=== PATIENT | female | born 1980 | race Caucasian/White ===

== ENCOUNTER 2018-04-28 11:30 | Inpatient (IN) ==
[2018-04-28] MEDS ORDERED: Vancomycin Inj 1 GM/200 ML PIGGYBACK IV.SIG ONE (13:47)
[2018-04-28] MEDS ORDERED: Piperacil/Tazo 4.5 GM Premix 4.5 GM/100 ML BAG IV.SIG STA (13:47)
[2018-04-28] MEDS ORDERED: Sodium Chlor 0.9% Inj 100 ML IV.SIG SCH (14:00)
[2018-04-28 14:15] LABS: Bilirubin,Urine Negative (Negative); Clarity,Urine Clear (Clear); Color,Urine Yellow (Yellw/Straw); Glucose,Urine (UA) Negative (Negative); Leukocyte Esterase,Urine Trace (Negative); Nitrite,Urine Negative (Negative); Specific Gravity,Urine Less/Equal 1.005 (1.002-1.035); Urobilinogen,Urine 0.2 mg/dL (Less than 2)
[2018-04-28 14:16] LABS: Baso % (Auto) 0.8 % (0.0-2.0); Eos # (Auto) 0.1 th/mm3 (0.0-0.4); Eos % (Auto) 1.1 % (0.0-4.0); Hematocrit 38.6 % (35.0-46.0); Hemoglobin 13.2 gm/dL (11.6-15.3); Lymph # (Auto) 1.5 th/mm3 (1.0-4.8); Lymph % (Auto) 25.1 % (9.0-44.0); Mean Corpuscular HGB Conc 34.2 % (32.0-36.0); Mean Corpuscular Hemoglobin 30.9 pg (27.0-34.0); Mean Corpuscular Volume 90.3 fL (80.0-100.0); Mean Platelet Volume 10.4 fL (7.0-11.0); Mono # (Auto) 0.5 th/mm3 (0.0-0.9); Mono % (Auto) 8.1 % (0.0-8.0); Neut # (Auto) 3.8 th/mm3 (1.8-7.7); Neut % (Auto) 64.9 % (16.0-70.0); Platelet Count 219 th/mm3 (150-450); Red Blood Count 4.28 mil/mm3 (4.00-5.30); Red Cell Distribution Width 13.9 % (11.6-17.2); White Blood Count 5.9 th/mm3 (4.0-11.0)
[2018-04-28 14:25] LABS: Chloride 101 meq/L (98-107); Sodium 137 meq/L (136-145)
[2018-04-28 14:28] LABS: Calcium 9.2 mg/dL (8.5-10.1)
[2018-04-28 14:29] LABS: Albumin 3.8 g/dL (3.4-5.0); Anion Gap 8 meq/L (5-15); Blood Urea Nitrogen 10 mg/dL (7-18); Carbon Dioxide 28.3 meq/L (21.0-32.0); Glucose,Random 68 mg/dL (74-106)
[2018-04-28 14:32] LABS: Alanine Aminotransferase 136 U/L (10-53); Aspartate Aminotransferase 84 U/L (15-37); Glomerular Filtration Rate 87 mL/min (>89)
[2018-04-28 14:34] LABS: Total Protein 8.7 g/dL (6.4-8.2)
[2018-04-28 14:35] LABS: Alkaline Phosphatase 94 U/L (45-117)
[2018-04-28 14:37] LABS: Potassium 4.1 meq/L (3.5-5.1)
[2018-04-28 14:49] LABS: Bacteria,Urine Rare /hpf; Mucus,Urine Rare /lpf (Occasional); Squamous Epithelial Cell,Urine 0-5 /hpf (0-5); WBC,Urine 0-5 /hpf (0-5)
[2018-04-28] MEDS ORDERED: Vancomycin Inj 1,000 MG in Sodium Chlor 0.9% Inj 250 ML IV.SIG ONE (15:00)
--- NOTE | 2018-04-28 15:12 | ED ---
HPI General Chief complaint: Skin/Abscess/Foreign Body Stated complaint: Lt hand swelling/poss spider bite x 4 days Time Seen by Provider: 04/28/18 13:47 Source: patient Mode of arrival: ambulatory Limitations: no limitations History of Present Illness HPI narrative: 37-year-old female is complaining of pain in her left hand. She says that she was gardening about 4 days ago and thinks he might of gotten bit by something. The area has become red drainage at times from the area. Not aware of fever. The area is quite painful and does admit to IV drug abuse in the past but says this area is not an area related to injection denies recent injections. she says the pain she is having is throbbing in nature and is quite severe Onset (ago): day(s) Location: upper extremity Radiation: non-radiation Severity: severe Quality: other Pain Consistency: constant Relieving factors: none Related Data Home Medications Medication Instructions Recorded Confirmed No Known Home Medications 04/28/18 04/28/18 Allergies Allergy/AdvReac Type Severity Reaction Status Date / Time No Known Allergies Allergy Verified 04/28/18 11:45 Review of Systems ROS: all other systems reviewed are negative [facility] Medical History Medical History Rheumatoid arthritis (Acute) Fibromyalgia (Acute) [place] teeth extracted (Acute) Surgical History Surgical History Hx of tonsillectomy (Acute) Social History Social History Substance History: Past History Second Hand Smoke Exposure: Yes Smoking Status: Current every day smoker Tobacco Type: Cigarettes How Often Do You Have a Drink Containing Alcohol: Never Recent Travel in [facility] within the Last 8 Weeks: No Recent Out of Country Travel within the Last 8 Weeks: No Immunization History Tetanus Immunization: >5 Years Hx Influenza Vaccine This Season: No Exam Narrative Exam Narrative: GENERAL: Thin female SKIN: Focused skin assessment warm/dry. HEAD: Atraumatic. Normocephalic. EYES: Pupils equal and round. No scleral icterus. No injection or drainage. ENT: No nasal bleeding or discharge. Mucous membranes pink and moist. NECK: Trachea midline. No JVD. CARDIOVASCULAR: Regular rate and rhythm. No murmur appreciated. RESPIRATORY: No accessory muscle use. Clear to auscultation. Breath sounds equal bilaterally. GASTROINTESTINAL: Abdomen soft, non-tender, nondistended. Hepatic and splenic margins not palpable. MUSCULOSKELETAL: Thenar eminence of the left hand is swollen and erythematous. Standing above the wrist forearm volarly. There is a small amount of drainage.. NEUROLOGICAL: Awake and alert. No obvious cranial nerve deficits. Motor grossly within normal limits. Normal speech. PSYCHIATRIC: Appropriate mood and affect; insight and judgment normal. Course Initial Documented Vital Signs Temperature 98.7 F 04/28/18 11:45 Pulse Rate 78 04/28/18 11:45 Respiratory Rate 16 04/28/18 11:45 Blood Pressure 102/55 L 04/28/18 11:45 Pulse Oximetry 100 04/28/18 11:45 Last Documented Vital Signs Temperature 98.7 F 04/28/18 11:45 Pulse Rate 75 04/28/18 15:21 Respiratory Rate 18 04/28/18 15:21 Blood Pressure 103/52 L 04/28/18 15:21 Pulse Oximetry 99 04/28/18 15:21 Medical Decision Making MDM Narrative Medical decision making narrative: Patient has significant cellulitis and possible abscess of the left hand. He did not involves the thenar eminence and surrounding areas there is lymphangitis. Medical Screen Exam Complete: Yes Emergency Medical Condition: Yes Lab Data Result diagrams: 04/28/18 12:49 04/28/18 12:49 POC Results POC Urine Results Negative Lab Results 04/28/18 04/28/18 04/28/18 Range/Units 12:49 12:49 14:03 CBC w Diff Auto diff final WBC 5.9 (4.0-11.0) th/mm3 RBC 4.28 (4.00-5.30) mil/mm3 Hgb 13.2 (11.6-15.3) gm/dL Hct 38.6 (35.0-46.0) % MCV 90.3 (80.0-100.0) fL MCH 30.9 (27.0-34.0) pg MCHC 34.2 (32.0-36.0) % RDW 13.9 (11.6-17.2) % Plt Count 219 (150-450) th/mm3 MPV 10.4 (7.0-11.0) fL Neut % (Auto) 64.9 (16.0-70.0) % Lymph % (Auto) 25.1 (9.0-44.0) % [place] % (Auto) 8.1 H (0.0-8.0) % Eos % (Auto) 1.1 (0.0-4.0) % Baso % (Auto) 0.8 (0.0-2.0) % Neut # (Auto) 3.8 (1.8-7.7) th/mm3 Lymph # (Auto) 1.5 (1.0-4.8) th/mm3 [place] # (Auto) 0.5 (0.0-0.9) th/mm3 Eos # (Auto) 0.1 (0.0-0.4) th/mm3 Baso # (Auto) 0.0 (0.0-0.2) th/mm3 WBC Differential . Differential Comment . Sodium 137 (136-145) meq/L Potassium 4.1 (3.5-5.1) meq/L Chloride 101 (98-107) meq/L Carbon Dioxide 28.3 (21.0-32.0) meq/L Anion Gap 8 (5-15) meq/L BUN 10 (7-18) mg/dL Creatinine 0.76 (0.50-1.00) mg/dL Estimated GFR 87 L (>89) mL/min Random Glucose 68 L (74-106) mg/dL Calcium 9.2 (8.5-10.1) mg/dL Total Bilirubin 0.7 (0.2-1.0) mg/dL AST 84 H (15-37) U/L ALT 136 H (10-53) U/L Alkaline Phosphatase 94 (45-117) U/L Total Protein 8.7 H (6.4-8.2) g/dL Albumin 3.8 (3.4-5.0) g/dL Urine Color Yellow (Yellw/Straw) Urine Clarity Clear (Clear) Urine pH 6.0 (5.0-8.5) Ur Specific [place] Less/equal 1.005 (1.002-1.035) Urine Protein Negative (Neg-Trace) mg/dL Urine Glucose (UA) Negative (Negative) mg/dL Urine Ketones Negative (Negative) mg/dL Urine Occult Blood Negative (Negative) Urine Nitrate Negative (Negative) Urine Bilirubin Negative (Negative) Urine Urobilinogen 0.2 (Less than 2) mg/dL Ur Leukocyte Esterase Trace H (Negative) Urine WBC 0-5 (0-5) /hpf Ur Squamous Epith Cells 0-5 (0-5) /hpf Urine Bacteria Rare H (None) /hpf Urine Mucus Rare H (Occasional) /lpf Micro UA Comment Culture not ind Ur Microscopic Review Microscopic reviewed Urine Culture Comments Culture not ind Imaging Data Radiologist's impression: Hand X-Ray 04/28/18 14:51 CONCLUSION: Negative examination Discharge Plan Discharge Disposition Patient Disposition: 30 Still Patient Physicians Team ED Provider: Mino Franco Primary Care Provider: Primary Care Lexi Mock Attending Provider: Guero Dwyer Discharge Interventions Interventions: Vital Signs Last Done: 04/28/18 15:21 Status ED Status: Admitted Observation Patient
--- NOTE | 2018-04-28 15:13 | XR ---
EXAM DATE: 04/28/2018 2:51 PM EDT AGE/SEX: 37 years / Female INDICATIONS: Pain and swelling in left hand distal to 1st digit. CLINICAL DATA: This is the patient's initial encounter. Patient reports that signs and symptoms have been present for 1 day and indicates a pain score of 5/10. MEDICAL/SURGICAL HISTORY: None. None. COMPARISON: No prior exams available for comparison. FINDINGS: Bony structures are intact and in normal alignment. Osseous density is normal. Soft tissues are unre markable. No radiopaque foreign bodies seen. CONCLUSION: Negative examination Electronically signed by: Royal Melton MD 04/28/2018 3:12 PM EDT
[2018-04-28] MEDS ORDERED: Sodium Chlor 0.9% Inj 1,000 ML IV.SIG SCH (15:14)
[2018-04-28] MEDS ORDERED: Vancomycin Consult Pharmacy OTHER PRN (15:42)
[2018-04-28] MEDS ORDERED: Bisacodyl 10 MG Supp RECTAL PRN (15:43)
[2018-04-28] MEDS ORDERED: Naloxone Inj 0.4 MG/ML Vial IV.PUSH PRN ×2 (15:44→17:24)
[2018-04-28] MEDS ORDERED: Acetaminophen 325 MG Tablet PO PRN (15:44)
[2018-04-28] MEDS ORDERED: Ketorolac Inj 30 MG/ML (IVP) Vial IV.PUSH PRN (15:44)
[2018-04-28] MEDS ORDERED: Ibuprofen 400 MG Tablet PO PRN (15:44)
[2018-04-28] MEDS: Ketorolac Inj 30 MG/ML (IVP) Vial IV.PUSH PRN (16:44)
--- NOTE | 2018-04-28 16:55 | P.HP ---
History of Present Illness Primary Care Physician: No Primary Care Physician Chief Complaint: Left hand swelling History of Present Illness: This is a 37-year-old female with a history of rheumatoid arthritis, fibromyalgia and cocaine abuse(snorting). She presents to the emergency department because of left hand pain and swelling which started about 4 days ago after she did gardening. She thought she might have been bitten by spider. She complains of a constant throbbing discomfort worse with movement. She also noted bloody purulent discharge. She denies IV drug use. Last oral intake 11:00 this morning. All other systems reviewed negative Review of Systems All other systems reviewed negative except as stated in HPI PMFSH - History History Provided By: Patient - Medical History Medical History: Medical History (Last Reviewed 04/28/18 @ 16:51 by Guero Dwyer MD) Rheumatoid arthritis (Acute) Fibromyalgia (Acute) [place] teeth extracted - Surgical History Surgical History: Surgical History (Last Reviewed 04/28/18 @ 16:51 by Guero Dwyer MD) Hx of tonsillectomy (Acute) - Family History Family History: Family History (Last Updated 04/28/18 @ 16:51 by Guero Dwyer MD) Other No pertinent family history - Tobacco History Second Hand Smoke Exposure: Yes Tobacco Use In Past 30 Days: Yes Smoking Status: Current every day smoker Tobacco Type: Cigarettes - Alcohol History How Often Do You Have a Drink Containing Alcohol: Never - Substance Use History Substance History: Past History - Travel History Recent Travel in the [place] Within the Last 8 Weeks: No Recent Travel Out of the Country Within the Last 8 Weeks: No - Immunization History Tetanus Immunization: >5 Years Hx Influenza Vaccine This Season: No Medications and Allergies Active Medications: Active Medications Acetaminophen (Tylenol) 650 mg PO Q4H PRN PRN Reason: Temp > 100.4 Acetaminophen (Tylenol) 650 mg PO Q6HR PRN PRN Reason: PAIN SCALE 1 TO 5 Al Hydroxide/Mg Hydroxide (Milk Of Magnesia Liq) 30 ml PO Q12H PRN PRN Reason: Mild Constipation Bisacodyl (Dulcolax Supp) 10 mg RECTAL DAILY PRN PRN Reason: SEVERE CONSITIPATION Sodium Chloride (Ns Inj) 1,000 mls @ 0 mls/hr IV.SIG BOLUS DELL Last Infusion: 04/28/18 16:28 Dose: Infused Piperacillin/Tazobactam/Dextrose (Zosyn 3.375 Gm Premix) 50 mls @ 100 mls/hr IV.SIG Q6H DELL Sodium Chloride (Ns Inj) 1,000 mls @ 60 mls/hr IV.CONT .[id number] DELL Vancomycin HCl 900 mg/ Sodium (Chloride) 250 mls @ 250 mls/hr IV.SIG Q12H DELL Ibuprofen (Motrin) 400 mg PO Q6HR PRN PRN Reason: PAIN SCALE 6 TO 10 Ketorolac Tromethamine (Toradol Inj) 30 mg IV.PUSH Q6H PRN PRN Reason: PAIN 6-10;IF UNABLE TO TAKE PO Stop: 05/03/18 15:43 Ketorolac Tromethamine (Toradol Inj) 15 mg IV.PUSH Q6H PRN PRN Reason: PAIN SCALE 3 TO 5 IF NOT PO Stop: 05/03/18 15:43 Lactulose (Lactulose Liq) 30 ml PO DAILY PRN PRN Reason: SEVERE CONSITIPATION Naloxone HCl (Narcan Inj) 0.4 mg IV.PUSH UNSCH PRN PRN Reason: SEE LABEL COMMENTS Ondansetron HCl (Zofran Inj) 4 mg IV.PUSH Q6H PRN PRN Reason: NAUSEA OR VOMITING Pharmacy Profile Note (Vancomycin Consult Pharmacy) 1 each OTHER UNSCH PRN PRN Reason: Pharmacy to dose Senna/Docusate Sodium (Thania-Colace) 1 tab PO BID DELL Sennosides (Senokot) 17.2 mg PO Q12H PRN PRN Reason: Moderate Constipation Allergies Allergy/AdvReac Type Severity Reaction Status Date / Time No Known Allergies Allergy Verified 04/28/18 11:45 Home Medications Medication Instructions Recorded Confirmed Type No Known Home Medications 04/28/18 04/28/18 History Exam Vital signs: Vital Signs 04/28/18 11:45 04/28/18 13:36 04/28/18 14:16 Temperature 98.7 F Pulse Rate 78 71 69 Respiratory Rate 16 18 Blood Pressure 102/55 L 96/56 L Pulse Oximetry 100 98 96 04/28/18 15:21 04/28/18 16:28 Temperature Pulse Rate 75 88 Respiratory Rate 18 18 Blood Pressure 103/52 L 104/54 L Pulse Oximetry 99 98 Intake & Output 10/02/18 10/03/18 10/03/18 18:59 06:59 18:59 Intake Total 1350 / 1350 Balance 1350 / 1350 Weight 56.2 kg Intake: IV 1350 / 1350 Zosyn 4.5 GM Premix 4.5 gm In 100 / 100 100 ml @ 200 mls/hr IV.SIG STAT STA Rx#:[id number] NS Inj 1,000 ML @ Wide Open IV. 1000 / 1000 SIG BOLUS DELL Rx#:[id number] Vancomycin Inj 1,000 MG In NS 250 / 250 Inj 250 ML @ 250 mls/hr IV.SIG ONCE ONE Rx#:[id number] Narrative: GENERAL: Well-developed, well-nourished in no distress SKIN: Warm and dry. HEAD: Atraumatic. Normocephalic. EYES: Pupils equal and round. No scleral icterus. No injection or drainage. ENT: No nasal bleeding or discharge. Mucous membranes pink and moist. NECK: Trachea midline. No JVD. CARDIOVASCULAR: Regular rate and rhythm. RESPIRATORY: No accessory muscle use. Clear to auscultation. Breath sounds equal bilaterally. GASTROINTESTINAL: Abdomen soft, non-tender, nondistended. MUSCULOSKELETAL: Extremities without clubbing, cyanosis, or edema. No obvious deformities. Left hand thenar eminence is swollen, erythematous and tender with dried secretions. NEUROLOGICAL: Awake and alert. No obvious cranial nerve deficits. Motor grossly within normal limits. Five out of 5 muscle strength in the arms and legs. Normal speech. PSYCHIATRIC: Appropriate mood and affect; insight and judgment normal. Results - Labs CBC & Chem 7: 04/28/18 12:49 04/28/18 12:49 Labs: Laboratory Results - last 24 hr 04/28/18 04/28/18 04/28/18 12:49 12:49 14:03 CBC w Diff Auto diff final WBC 5.9 RBC 4.28 Hgb 13.2 Hct 38.6 MCV 90.3 MCH 30.9 MCHC 34.2 RDW 13.9 Plt Count 219 MPV 10.4 Neut % (Auto) 64.9 Lymph % (Auto) 25.1 [place] % (Auto) 8.1 H Eos % (Auto) 1.1 Baso % (Auto) 0.8 Neut # (Auto) 3.8 Lymph # (Auto) 1.5 [place] # (Auto) 0.5 Eos # (Auto) 0.1 Baso # (Auto) 0.0 WBC Differential . Differential Comment . Sodium 137 Potassium 4.1 Chloride 101 Carbon Dioxide 28.3 Anion Gap 8 BUN 10 Creatinine 0.76 Estimated GFR 87 L Random Glucose 68 L Calcium 9.2 Total Bilirubin 0.7 AST 84 H ALT 136 H Alkaline Phosphatase 94 Total Protein 8.7 H Albumin 3.8 Urine Color Yellow Urine Clarity Clear Urine pH 6.0 Ur Specific [place] Less/equal 1.005 Urine Protein Negative Urine Glucose (UA) Negative Urine Ketones Negative Urine Occult Blood Negative Urine Nitrate Negative Urine Bilirubin Negative Urine Urobilinogen 0.2 Ur Leukocyte Esterase Trace H Urine WBC 0-5 Ur Squamous Epith Cells 0-5 Urine Bacteria Rare H Urine Mucus Rare H Micro UA Comment Culture not ind Ur Microscopic Review Microscopic reviewed Urine Culture Comments Culture not ind - Imaging Impressions Hand X-Ray 04/28/18 14:51 CONCLUSION: Negative examination Caprini VTE Risk Assessment Caprini VTE Risk Assessment: No/Low Risk (score <= 1) Caprini Risk Assessment Model: Point Value = 1 Point Value = 2 Point Value = 3 Point Value = 5 Age 41-60 Minor surgery BMI > 25 kg/m2 Swollen legs Varicose veins or History of unexplained or recurrent spontaneous Oral contraceptives or hormone replacement Sepsis (< 1 month) Serious lung disease, including pneumonia (< 1 month) Abnormal pulmonary function Acute myocardial infarction Congestive heart failure (< 1 month) History of inflammatory bowel disease Medical patient at bed rest Age 61-74 Arthroscopic surgery Major open surgery (> 45 min) Laparoscopic surgery (> 45 min) Malignancy Confined to bed (> 72 hours) Immobilizing plaster cast Central venous access Age >= 75 History of VTE Family history of VTE Factor V Leiden Prothrombin [id number] Lupus anticoagulant Anticardiolipin antibodies Elevated serum homocysteine Heparin-induced thrombocytopenia Other congenital or acquired thrombophilia Stroke (< 1 month) Elective arthroplasty Hip, pelvis, or leg fracture Acute spinal cord injury (< 1 month) Prophylaxis Regimen: Total Risk Factor Score Risk Level Prophylaxis Regimen 0-1 Low Early ambulation 2 Moderate Order ONE of the following: *Sequential Compression Device (SCD) *Heparin 5000 units SQ BID 3-4 Higher Order ONE of the following medications: *Heparin 5000 units SQ TID *Enoxaparin/Lovenox 40 mg SQ daily (WT < 150 kg, CrCl > 30 mL/min) *Enoxaparin/Lovenox 30 mg SQ daily (WT < 150 kg, CrCl > 10-29 mL/min) *Enoxaparin/Lovenox 30 mg SQ BID (WT < 150 kg, CrCl > 30 mL/min) AND/OR *Sequential Compression Device (SCD) 5 or more Highest Order ONE of the following medications: *Heparin 5000 units SQ TID (Preferred with Epidurals) *Enoxaparin/Lovenox 40 mg SQ daily (WT < 150 kg, CrCl > 30 mL/min) *Enoxaparin/Lovenox 30 mg SQ daily (WT < 150 kg, CrCl > 10-29 mL/min) *Enoxaparin/Lovenox 30 mg SQ BID (WT < 150 kg, CrCl > 30 mL/min) AND *Sequential Compression Device (SCD) Assessment and Plan - Plan This is a 37-year-old female with a history of rheumatoid arthritis, fibromyalgia and cocaine abuse(snorting). She presents to the emergency department because of left hand pain and swelling which started about 4 days ago after she did gardening. She thought she might have been bitten by spider. She also noted bloody purulent discharge. She denies IV drug use. Last oral intake 11:00 this morning. Left hand cellulitis/abscess. Had an x-ray image interpreted by me with no foreign body. We will keep patient n.p.o. and consult hand surgery. Start IV fluids, pain management with ibuprofen and IV Toradol and continue IV antibiotics with Vanco mycin and Zosyn. Follow-up cultures Transaminitis. Patient denies alcohol use. This could be related to infection. Will repeat LFTs in the morning and obtain hepatitis screen. Prophylaxis with SCD
[2018-04-28] MEDS ORDERED: Sod Chloride 0.9% Inj 1,000 ML IV.CONT SCH (17:00)
[2018-04-28] MEDS: Morphine Inj 4 MG/ML Vial IV.PUSH PRN ×2 (17:40→21:30)
[2018-04-28] MEDS ORDERED: Sodium Chloride 0.9% 2 ML Flush PRN IV.FLUSH (18:06)
--- NOTE | 2018-04-28 20:01 | MB ---
cc: Ivonne Horvath MD DATE: 04/28/2018 REQUESTING PHYSICIAN: Guero Dwyer MD REASON FOR CONSULTATION: Cellulitis and possible abscess of left hand. HISTORY OF PRESENT ILLNESS: The patient is a 37-year-old female with a history of rheumatoid arthritis, fibromyalgia, and cocaine abuse. The patient reports that 4 days ago, she developed left hand pain and swelling after doing some gardening. It crescendoed last evening and she came to the emergency room for examination and treatment due to the pain. The patient was admitted, placed on intravenous antibiotics. The patient notes that over the hours that she came in for examination and treatment this morning around 11 o'clock, since that time, she has been on intravenous antibiotics and has noticed significant improvement. Consultation is requested regarding evaluation and treatment of this patient. REVIEW OF SYSTEMS: Review of systems is negative except as noted above. PAST MEDICAL HISTORY: Significant for rheumatoid arthritis, fibromyalgia. PAST SURGICAL HISTORY: Includes tonsillectomy and wisdom tooth extraction. FAMILY HISTORY: Noncontributory. SOCIAL HISTORY: The patient is a current every day smoker. She denies alcohol use. She does indicate that she has used substances in the past. PHYSICAL EXAMINATION: GENERAL: The patient is lying comfortably in bed. VITAL SIGNS: Temperature is 99, respirations are 18, blood pressure is 104/54, pulse oximetry is 98. The patient weighs 56.2 kg and is 167.64 cm. HEENT: Extraocular muscles are intact. Her pupils are equal, round and reactive to light. Mouth is clear. NECK: Supple without masses. LUNGS: Clear. HEART: Regular rate and rhythm. EXTREMITIES: Examination of her left hand reveals some redness and swelling in the area of the MP joint. The radial side of the thumb at the crease has a significant amount of dried secretions. There is no evidence of an abscess formation. There is no drainage. The patient is able to flex her thumb, although this is minimal. She does have a minimal amount of opposition without discomfort. The fingertips are warm and well perfused. LABORATORY DATA: White count on admission was 5.9 and there is no shift. X-RAY DATA: Review of the x-ray reveals it to be a normal exam. IMPRESSION: The patient does not appear to have an abscess. This appears to be a localized condition on her hand, which may be an injury as noted. Also, does resemble eczema with perhaps cellulitis secondary to irritation. PLAN: I would continue on intravenous antibiotics. I will reevaluate the patient tomorrow. . MD CANDE Carmen/rustam , 06:43 PM , 06:51 PM
[2018-04-28] MEDS: Senna/Docusate Sodium 8.6/50 MG Tablet PO SCH (21:30)
[2018-04-28] MEDS: Sodium Chloride 0.9% 2 ML Flush BID IV.FLUSH SCH (21:33)
[2018-04-28] MEDS: Piperacil/Tazo 3.375 GM Premix 50 ML IV.SIG SCH (21:34)
[2018-04-29] MEDS: Morphine Inj 4 MG/ML Vial IV.PUSH PRN ×6 (00:21→14:50)
[2018-04-29] MEDS: Ketorolac Inj 30 MG/ML (IVP) Vial IV.PUSH PRN ×3 (00:22→12:07)
[2018-04-29] MEDS: Piperacil/Tazo 3.375 GM Premix 50 ML IV.SIG SCH ×4 (03:06→20:32)
[2018-04-29] MEDS: Vancomycin Inj 900 MG in Sodium Chlor 0.9% Inj 250 ML IV.SIG SCH ×2 (03:06→14:50)
[2018-04-29 07:27] LABS: Alanine Aminotransferase 120 U/L (10-53); Albumin 3.2 g/dL (3.4-5.0); Alkaline Phosphatase 94 U/L (45-117); Anion Gap 7 meq/L (5-15); Aspartate Aminotransferase 74 U/L (15-37); Blood Urea Nitrogen 11 mg/dL (7-18); Calcium 8.3 mg/dL (8.5-10.1); Chloride 113 meq/L (98-107); Glomerular Filtration Rate 82 mL/min (>89); Glucose,Random 98 mg/dL (74-106); Potassium 4.2 meq/L (3.5-5.1); Sodium 144 meq/L (136-145); Total Protein 7.5 g/dL (6.4-8.2)
--- NOTE | 2018-04-29 09:16 | P.PN ---
Subjective Interval history: Follow-up hand infection. Complains of hand pain but swelling and redness much improved with increase range of motion of the left thumb. Physical Exam Vital signs: Vital Signs 04/28/18 11:45 04/28/18 13:36 04/28/18 14:16 Temperature 98.7 F Pulse Rate 78 71 69 Respiratory Rate 16 18 Blood Pressure 102/55 L 96/56 L Pulse Oximetry 100 98 96 04/28/18 15:21 04/28/18 16:28 04/28/18 17:22 Temperature Pulse Rate 75 88 Respiratory Rate 18 18 17 Blood Pressure 103/52 L 104/54 L Pulse Oximetry 99 98 04/28/18 17:42 04/28/18 20:00 04/29/18 00:00 Temperature 98.3 F 98.6 F Pulse Rate 87 86 Respiratory Rate 18 16 16 Blood Pressure 103/53 L 104/52 L Pulse Oximetry 98 98 Intake & Output 04/28/18 04/29/18 04/29/18 18:59 06:59 18:59 Intake Total 1710 / 1710 550 / 550 Balance 1710 / 1710 550 / 550 Weight 56.2 kg 56.2 kg Intake: IV 1350 / 1350 350 / 350 Zosyn 3.375 GM Premix 50 ML @ 100 / 100 100 mls/hr IV.SIG Q6H DELL Rx#: [id number] Zosyn 4.5 GM Premix 4.5 gm In 100 / 100 100 ml @ 200 mls/hr IV.SIG STAT STA Rx#:[id number] NS Inj 1,000 ML @ Wide Open IV. 1000 / 1000 SIG BOLUS DELL Rx#:[id number] Vancomycin Inj 900 MG In NS Inj 250 / 250 250 / 250 250 ML @ 250 mls/hr IV.SIG Q12H DELL Rx#:[id number] Oral 360 / 360 200 / 200 Other: # Voids 1 2 Date of Last Bowel Movement 04/27/18 04/29/18 # Bowel Movements 0 Weight On Admission 56.2 kg Narrative: GENERAL: Well-developed, well-nourished in no distress SKIN: Warm and dry. CARDIOVASCULAR: Regular rate and rhythm. RESPIRATORY: No accessory muscle use. Clear to auscultation. Breath sounds equal bilaterally. GASTROINTESTINAL: Abdomen soft, non-tender, nondistended. MUSCULOSKELETAL: Extremities without clubbing, cyanosis, or edema. No obvious deformities. Left hand thenar eminence swelling and redness much improved with increased range of motion. No active drainage NEUROLOGICAL: Awake and alert. No obvious cranial nerve deficits. Motor grossly within normal limits. Five out of 5 muscle strength in the arms and legs. Normal speech. PSYCHIATRIC: Appropriate mood and affect; insight and judgment normal. Results - Labs CBC & Chem 7: 04/28/18 12:49 04/29/18 05:40 Laboratory Results - last 24 hr 04/28/18 04/28/18 04/28/18 12:49 12:49 14:03 CBC w Diff Auto diff final WBC 5.9 RBC 4.28 Hgb 13.2 Hct 38.6 MCV 90.3 MCH 30.9 MCHC 34.2 RDW 13.9 Plt Count 219 MPV 10.4 Neut % (Auto) 64.9 Lymph % (Auto) 25.1 [place] % (Auto) 8.1 H Eos % (Auto) 1.1 Baso % (Auto) 0.8 Neut # (Auto) 3.8 Lymph # (Auto) 1.5 [place] # (Auto) 0.5 Eos # (Auto) 0.1 Baso # (Auto) 0.0 WBC Differential . Differential Comment . Sodium 137 Potassium 4.1 Chloride 101 Carbon Dioxide 28.3 Anion Gap 8 BUN 10 Creatinine 0.76 Estimated GFR 87 L Random Glucose 68 L Calcium 9.2 Total Bilirubin 0.7 AST 84 H ALT 136 H Alkaline Phosphatase 94 Total Protein 8.7 H Albumin 3.8 Urine Color Yellow Urine Clarity Clear Urine pH 6.0 Ur Specific [place] Less/equal 1.005 Urine Protein Negative Urine Glucose (UA) Negative Urine Ketones Negative Urine Occult Blood Negative Urine Nitrate Negative Urine Bilirubin Negative Urine Urobilinogen 0.2 Ur Leukocyte Esterase Trace H Urine WBC 0-5 Ur Squamous Epith Cells 0-5 Urine Bacteria Rare H Urine Mucus Rare H Micro UA Comment Culture not ind Ur Microscopic Review Microscopic reviewed Urine Culture Comments Culture not ind 04/29/18 05:40 CBC w Diff WBC RBC Hgb Hct MCV MCH MCHC RDW Plt Count MPV Neut % (Auto) Lymph % (Auto) [place] % (Auto) Eos % (Auto) Baso % (Auto) Neut # (Auto) Lymph # (Auto) [place] # (Auto) Eos # (Auto) Baso # (Auto) WBC Differential Differential Comment Sodium 144 Potassium 4.2 Chloride 113 H D Carbon Dioxide 24.0 Anion Gap 7 BUN 11 Creatinine 0.80 Estimated GFR 82 L Random Glucose 98 Calcium 8.3 L D Total Bilirubin 0.4 AST 74 H ALT 120 H Alkaline Phosphatase 94 Total Protein 7.5 D Albumin 3.2 L D Urine Color Urine Clarity Urine pH Ur Specific [place] Urine Protein Urine Glucose (UA) Urine Ketones Urine Occult Blood Urine Nitrate Urine Bilirubin Urine Urobilinogen Ur Leukocyte Esterase Urine WBC Ur Squamous Epith Cells Urine Bacteria Urine Mucus Micro UA Comment Ur Microscopic Review Urine Culture Comments Microbiology 04/28/18 14:09 Abscess - Hand Gram Stain - Final - Imaging Impressions Hand X-Ray 04/28/18 14:51 CONCLUSION: Negative examination - Procedures none Assessment and Plan - Plan This is a 37-year-old female with a history of rheumatoid arthritis, fibromyalgia and cocaine abuse(snorting). She presents to the emergency department because of left hand pain and swelling which started about 4 days ago MESH MAN after gardening. She thought she might have been bitten by spider. She also noted bloody purulent discharge. She denies IV drug use. Left hand cellulitis/abscess. Had an x-ray image interpreted by me with no foreign body. Looks much improved today. Ct pain management with ibuprofen and IV Toradol and IV antibiotics with Vancomycin and Zosyn. Follow-up cultures Transaminitis. Patient denies alcohol use. This could be related to infection. Will repeat LFTs in the morning and obtain hepatitis screen. Prophylaxis with SCD Discharge Planning: when cleared by hand
[2018-04-29] MEDS: Sodium Chloride 0.9% 2 ML Flush BID IV.FLUSH SCH ×2 (09:28→20:32)
[2018-04-29] MEDS: Senna/Docusate Sodium 8.6/50 MG Tablet PO SCH ×2 (09:28→20:32)
[2018-04-29 12:55] LABS: Hepatitis A IgM Antibody Nonreactive (Nonreactive); Hepatitits B Surface Antigen Nonreactive (Nonreactive)
[2018-04-29] MEDS ORDERED: Ketorolac Inj 30 MG/ML (IVP) Vial IV.PUSH SCH (15:00)
--- NOTE | 2018-04-29 15:42 | ECG ---
Date Performed: 04/28/2018 Time Performed: 14:03:05 PTAGE: 37 years EKG: Sinus rhythm NORMAL ECG PREVIOUS TRACING : 07/20/2013 22.13 Since the previous tracing, no significant change noted DOCTOR: Sun Snider Interpretating Date/Time 04/29/2018 15:41:50
--- NOTE | 2018-04-29 16:26 | P.PNPLA ---
Subjective Remarks: The patient has continued pain at the base of the left thumb. Objective Vital Signs: Vital Signs - 24 hr 04/28/18 16:28 04/28/18 17:22 04/28/18 17:42 Temperature Pulse Rate 88 Respiratory Rate 18 17 18 Blood Pressure 104/54 L Pulse Oximetry 98 04/28/18 20:00 04/29/18 00:00 04/29/18 07:00 Temperature 98.3 F 98.6 F Pulse Rate 87 86 Respiratory Rate 16 16 18 Blood Pressure 103/53 L 104/52 L Pulse Oximetry 98 98 04/29/18 08:00 04/29/18 09:21 04/29/18 12:05 Temperature 97.8 F Pulse Rate 77 Respiratory Rate 17 18 18 Blood Pressure 128/52 L Pulse Oximetry 98 04/29/18 12:37 04/29/18 14:52 04/29/18 16:00 Temperature 97.2 F L Pulse Rate 76 Respiratory Rate 18 18 16 Blood Pressure 117/76 Pulse Oximetry 100 Intake & Output 04/27/18 04/28/18 04/29/18 04/30/18 06:59 06:59 06:59 06:59 Intake Total 2260 / 2260 1050 / 1050 Balance 2260 / 2260 1050 / 1050 Weight 56.2 kg Laboratory Results: Laboratory Results - last 24 hr 04/29/18 04/29/18 05:40 08:35 Sodium 144 Potassium 4.2 Chloride 113 H D Carbon Dioxide 24.0 Anion Gap 7 BUN 11 Creatinine 0.80 Estimated GFR 82 L Random Glucose 98 Calcium 8.3 L D Total Bilirubin 0.4 AST 74 H ALT 120 H Alkaline Phosphatase 94 Total Protein 7.5 D Albumin 3.2 L D Hepatitis A IgM Ab Nonreactive Hep Bs Antigen Nonreactive Hep B Core IgM Ab Nonreactive Hep C IgG Ab Reactive H Microbiology 04/28/18 14:09 Gram Stain - Final Abscess - Hand Wound Culture - Preliminary S. aureus MRSA 04/28/18 12:44 Aerobic Blood Culture - Preliminary Blood - Peripheral No growth in 1 day Anaerobic Blood Culture - Preliminary No growth in 1 day 04/28/18 12:49 Aerobic Blood Culture - Preliminary Blood - Peripheral No growth in 1 day Anaerobic Blood Culture - Preliminary No growth in 1 day Result Diagrams: 04/28/18 12:49 04/29/18 05:40 Exam Findings: The base of the left thumb is very tender. There is a small opening present. Assessment and Plan - Plan Impression: The patient may have an abscess at the base of the left thumb. Plan: After much discussion with the patient, we will explore the area for an abscess. She understands and accepts the risks and complications of the surgery.
[2018-04-29] MEDS: Morphine Sulfate Inj 2 MG/ML Vial IV.PUSH PRN ×2 (17:39→20:32)
[2018-04-29] MEDS: Ketorolac Inj 30 MG/ML (IVP) Vial IV.PUSH SCH (17:40)
[2018-04-30] MEDS: Morphine Sulfate Inj 2 MG/ML Vial IV.PUSH PRN (01:23)
[2018-04-30] MEDS: Ketorolac Inj 30 MG/ML (IVP) Vial IV.PUSH SCH ×4 (01:23→18:01)
[2018-04-30] MEDS: Piperacil/Tazo 3.375 GM Premix 50 ML IV.SIG SCH ×4 (01:25→22:15)
[2018-04-30] MEDS ORDERED: Pharmacy Ordered Lab Info OTHER ONE (02:45)
[2018-04-30] MEDS: Vancomycin Inj 900 MG in Sodium Chlor 0.9% Inj 250 ML IV.SIG SCH ×2 (03:44→16:01)
[2018-04-30] MEDS ORDERED: Sod Chloride 0.9% Inj 1,000 ML IV.SIG SCH (05:00)
[2018-04-30] MEDS ORDERED: fentaNYL Citrate Inj 250 MCG/5 ML Ampul ONE (06:57)
[2018-04-30 08:17] LABS: Baso # (Auto) 0.1 th/mm3 (0.0-0.2); Baso % (Auto) 2.1 % (0.0-2.0); Eos # (Auto) 0.1 th/mm3 (0.0-0.4); Hemoglobin 9.3 gm/dL (11.6-15.3); Lymph # (Auto) 0.5 th/mm3 (1.0-4.8); Lymph % (Auto) 9.7 % (9.0-44.0); Mean Corpuscular HGB Conc 34.3 % (32.0-36.0); Mean Corpuscular Hemoglobin 30.9 pg (27.0-34.0); Mean Corpuscular Volume 90.1 fL (80.0-100.0); Mean Platelet Volume 9.4 fL (7.0-11.0); Mono # (Auto) 0.5 th/mm3 (0.0-0.9); Mono % (Auto) 9.8 % (0.0-8.0); Neut # (Auto) 4.3 th/mm3 (1.8-7.7); Neut % (Auto) 76.4 % (16.0-70.0); Platelet Count 125 th/mm3 (150-450); Red Cell Distribution Width 14.3 % (11.6-17.2); White Blood Count 5.5 th/mm3 (4.0-11.0)
[2018-04-30] MEDS: Senna/Docusate Sodium 8.6/50 MG Tablet PO SCH ×2 (08:57→22:00)
[2018-04-30] MEDS: Sodium Chloride 0.9% 2 ML Flush BID IV.FLUSH SCH ×2 (08:57→22:01)
[2018-04-30] MEDS ORDERED: Chlorhexidine Gluconate 2% 1 Pack (2 Cloths) TOPICAL ONE (09:02)
[2018-04-30] MEDS ORDERED: Metoprolol Tartrate 25 MG Tablet PO ONE (09:02)
--- NOTE | 2018-04-30 09:14 | P.PN ---
Subjective Interval history: Follow-up hand infection. Called urgently to evaluate secondary to hypotension required fluid bolus overnight. Patient has no symptoms denies weakness or dizziness. Repeat blood pressure over 90 and MAP over 60. Good peripheral pulses. Physical Exam Vital signs: Vital Signs 04/29/18 09:21 04/29/18 12:05 04/29/18 12:37 Temperature Pulse Rate Respiratory Rate 18 18 18 Blood Pressure Pulse Oximetry 04/29/18 14:52 04/29/18 16:00 04/29/18 17:41 Temperature 97.2 F L Pulse Rate 76 Respiratory Rate 18 16 18 Blood Pressure 117/76 Pulse Oximetry 100 04/29/18 18:10 04/29/18 20:00 04/30/18 00:00 Temperature 97.9 F 97.8 F Pulse Rate 88 73 Respiratory Rate 18 20 20 Blood Pressure 111/72 143/76 H Pulse Oximetry 100 98 04/30/18 04:00 04/30/18 07:17 04/30/18 07:50 Temperature 98.4 F Pulse Rate 54 L 62 Respiratory Rate 20 22 Blood Pressure 88/54 L 89/52 L 86/50 L Pulse Oximetry 98 04/30/18 08:45 Temperature 98.1 F Pulse Rate 70 Respiratory Rate 20 Blood Pressure 105/62 Pulse Oximetry 100 Intake & Output 04/29/18 04/30/18 04/30/18 18:59 06:59 18:59 Intake Total 2370 / 2370 1830 / 1830 50 / 50 Balance 2370 / 2370 1830 / 1830 50 / 50 Weight 56.7 kg Intake: IV 1350 / 1350 1350 / 1350 50 / 50 NS Inj 1,000 ML @ 60 mls/hr IV. 1000 / 1000 CONT .[id number] DELL Rx#: [id number] Zosyn 3.375 GM Premix 50 ML @ 100 / 100 100 / 100 50 / 50 100 mls/hr IV.SIG Q6H DELL Rx#: [id number] NS Inj 1,000 ML @ Wide Open IV. 1000 / 1000 SIG BOLUS DELL Rx#:[id number] Vancomycin Inj 900 MG In NS Inj 250 / 250 250 / 250 250 ML @ 250 mls/hr IV.SIG Q12H DELL Rx#:[id number] Oral 1020 / 1020 480 / 480 Other: # Voids 5 3 Date of Last Bowel Movement 10/04/18 # Bowel Movements 0 Narrative: GENERAL: Well-developed, well-nourished in no distress SKIN: Warm and dry. CARDIOVASCULAR: Regular rate and rhythm. RESPIRATORY: No accessory muscle use. Clear to auscultation. Breath sounds equal bilaterally. GASTROINTESTINAL: Abdomen soft, non-tender, nondistended. MUSCULOSKELETAL: Extremities without clubbing, cyanosis, or edema. No obvious deformities. Left hand with dry dressing NEUROLOGICAL: Awake and alert. No obvious cranial nerve deficits. Motor grossly within normal limits. Five out of 5 muscle strength in the arms and legs. Normal speech. PSYCHIATRIC: Appropriate mood and affect; insight and judgment normal. Results - Labs CBC & Chem 7: 04/30/18 08:10 04/29/18 05:40 Laboratory Results - last 24 hr 04/29/18 04/30/18 08:35 08:10 CBC w Diff Auto diff final WBC 5.5 RBC 3.00 L Hgb 9.3 L D Hct 27.0 L MCV 90.1 MCH 30.9 MCHC 34.3 RDW 14.3 Plt Count 125 L D MPV 9.4 Neut % (Auto) 76.4 H Lymph % (Auto) 9.7 [place] % (Auto) 9.8 H Eos % (Auto) 2.0 Baso % (Auto) 2.1 H Neut # (Auto) 4.3 Lymph # (Auto) 0.5 L [place] # (Auto) 0.5 Eos # (Auto) 0.1 Baso # (Auto) 0.1 WBC Differential . Differential Comment . Hepatitis A IgM Ab Nonreactive Hep Bs Antigen Nonreactive Hep B Core IgM Ab Nonreactive Hep C IgG Ab Reactive H Microbiology 04/28/18 14:09 Abscess - Hand Gram Stain - Final 04/28/18 14:09 Abscess - Hand Wound Culture - Preliminary S. aureus MRSA 04/28/18 12:44 Blood - Peripheral Aerobic Blood Culture - Preliminary No growth in 1 day 04/28/18 12:44 Blood - Peripheral Anaerobic Blood Culture - Preliminary No growth in 1 day 04/28/18 12:49 Blood - Peripheral Aerobic Blood Culture - Preliminary No growth in 1 day 04/28/18 12:49 Blood - Peripheral Anaerobic Blood Culture - Preliminary No growth in 1 day - Procedures none Assessment and Plan - Plan This is a 37-year-old female with a history of rheumatoid arthritis, fibromyalgia and cocaine abuse(snorting). 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 She thought she might have been bitten by spider. She also noted bloody purulent discharge. She denies IV drug use. Left hand cellulitis/abscess. Had an x-ray image interpreted by me with no foreign body. Continues to complain of pain hand surgery to explore wound in the operating room. Ct pain management with ibuprofen and IV Toradol and IV antibiotics with Vancomycin and Zosyn. Follow-up cultures with MRSA Transaminitis. Patient denies alcohol use. This could be related to infection. Will repeat LFTs in the morning and obtain hepatitis screen. Hypotension improved with IV hydration. Stat CBC, BMP and continue IV hydration. Review of records she usually runs low. Clinically she looks okay with good peripheral pulses. DVT prophylaxis with SCD Discharge Planning: when cleared by hand
[2018-04-30] MEDS ORDERED: Bupivacaine PF 0.5% Inj 30 ML Vial ONE (09:24)
[2018-04-30] MEDS ORDERED: Lidocaine PF 1% Inj 5 ML Syringe INFILTRATN ONE (09:25)
--- NOTE | 2018-04-30 09:59 | P.BOP ---
- Preoperative Diagnosis (1) Abscess of thumb, left - Postoperative Diagnosis (1) Abscess of thumb, left Date of procedure: 04/30/18 Procedure: Incision and drainage of abscess of the left thumb. Anesthesia: MAC Surgeon: Ivonne Horvath MD Estimated blood loss (mL): 0 Tourniquet time (min): 10 (200 mm Hg) Pathology: none sent Condition: stable Disposition: PACU
[2018-04-30] MEDS ORDERED: Sodium Chlor 0.9% Inj 500 ML IV.SIG SCH (10:00)
[2018-04-30] MEDS ORDERED: Morphine Inj 4 MG/ML Vial ONE (10:14)
[2018-04-30] MEDS ORDERED: HYDROmorphone PF Inj 2 MG/ML Vial ONE (10:26)
[2018-04-30 11:02] LABS: % Iron Saturation 9.5 % (20-50); Vancomycin,Trough 5.6 mcg/mL (5.0-10.0)
[2018-04-30] MEDS: Sod Chloride 0.9% Inj 1,000 ML IV.CONT SCH ×2 (12:10→22:15)
--- NOTE | 2018-04-30 12:22 | MP ---
cc: Ivonne Horvath MD DATE OF OPERATION: 04/30/2018 PREOPERATIVE DIAGNOSIS: Abscess of the left thumb. POSTOPERATIVE DIAGNOSIS: Abscess of the left thumb. PROCEDURE PERFORMED: Incision and drainage of left thumb, and excisional debridement of infected skin and subcutaneous tissue. ANESTHESIA: General. SURGEON: Ivonne Horvath MD. INDICATIONS FOR PROCEDURE: This is a 37-year-old female with a chronic infection of the left thumb. The swelling had gone down, but the drainage persisted, and so did the pain. FINDINGS: There was a large cavity measuring 3 cm x 1.5 cm in the subcutaneous area. There was no collection of pus within this cavity. At the completion of the procedure, the cavity was cleansed, irrigated and packed. TOURNIQUET TIME: 10 minutes. DESCRIPTION OF PROCEDURE: The patient was seen preoperatively, where the site and side were identified and marked. The patient was then taken to the operating room and placed in a supine position. Her identity was checked against her armband and the consent form, side, and site confirmed. Timeout called prior to beginning the procedure. The left upper extremity was prepped with Hibiclens and draped in the usual sterile fashion. The area to be incised was outlined with a marking pen as an elliptical excision of the infected skin. There were several holes, which penetrated into the cavity. These were included in the elliptical excision, which measured approximately 1.5 x 0.7 cm in greatest dimension. The arm was elevated, and the tourniquet was inflated to 200 mmHg. A 15 blade was used to make the incision, as noted above, down through the skin, down to the subcutaneous tissue. Under loupe magnification, the elliptical piece of skin was removed and discarded. The cavity was irrigated and curetted to remove all remnants of nonviable tissue. Once this was completed, it was packed with 1/4 inch iodoform packing and covered with povidone iodine ointment, Adaptic, Telfa, 4 x 4's, and hand wrap. The patient was then taken from the operating room to the recovery room in satisfactory condition, having tolerated the procedure well. POSTOPERATIVE INSTRUCTIONS: Include keeping the area elevated. The packing will be removed in the morning. MD CANDE Carmen/monica , 10:06 AM , 10:14 AM
[2018-04-30] MEDS ORDERED: Morphine Inj 4 MG/ML Vial IV.PUSH PRN (13:54)
[2018-04-30] MEDS ORDERED: Naloxone Inj 0.4 MG/ML Vial IV.PUSH PRN (13:54)
[2018-04-30] MEDS: Ferrous Sulfate 325 MG Tablet PO SCH (18:42)
[2018-05-01] MEDS: Ketorolac Inj 30 MG/ML (IVP) Vial IV.PUSH SCH ×5 (00:03→23:37)
[2018-05-01] MEDS: Vancomycin Inj 900 MG in Sodium Chlor 0.9% Inj 250 ML IV.SIG SCH ×2 (00:04→06:28)
[2018-05-01] MEDS: Piperacil/Tazo 3.375 GM Premix 50 ML IV.SIG SCH ×2 (02:23→09:51)
[2018-05-01] MEDS: Ferrous Sulfate 325 MG Tablet PO SCH (08:17)
[2018-05-01] MEDS: Senna/Docusate Sodium 8.6/50 MG Tablet PO SCH ×2 (08:18→21:33)
[2018-05-01] MEDS: Sod Chloride 0.9% Inj 1,000 ML IV.CONT SCH ×2 (08:21→14:10)
[2018-05-01 09:40] LABS: White Blood Count 5.9 th/mm3 (4.0-11.0)
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
[2018-05-01 09:41] LABS: Baso # (Auto) 0.1 th/mm3 (0.0-0.2); Baso % (Auto) 1.5 % (0.0-2.0); Eos # (Auto) 0.1 th/mm3 (0.0-0.4); Eos % (Auto) 2.3 % (0.0-4.0); Hematocrit 27.8 % (35.0-46.0); Hemoglobin 9.4 gm/dL (11.6-15.3); Lymph # (Auto) 0.9 th/mm3 (1.0-4.8); Lymph % (Auto) 15.8 % (9.0-44.0); Mean Corpuscular HGB Conc 33.9 % (32.0-36.0); Mean Corpuscular Volume 91.4 fL (80.0-100.0); Mono # (Auto) 0.4 th/mm3 (0.0-0.9); Mono % (Auto) 7.6 % (0.0-8.0); Neut # (Auto) 4.4 th/mm3 (1.8-7.7); Neut % (Auto) 72.8 % (16.0-70.0); Platelet Count 149 th/mm3 (150-450); Red Blood Count 3.04 mil/mm3 (4.00-5.30); Red Cell Distribution Width 14.3 % (11.6-17.2)
[2018-05-01 09:50] LABS: Calcium 7.9 mg/dL (8.5-10.1); Carbon Dioxide 23.1 meq/L (21.0-32.0); Magnesium 1.9 mg/dL (1.5-2.5)
[2018-05-01 09:54] LABS: Potassium 3.6 meq/L (3.5-5.1)
[2018-05-01] MEDS: Sodium Chloride 0.9% 2 ML Flush BID IV.FLUSH SCH ×2 (10:54→21:51)
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
[2018-05-01] MEDS ORDERED: VANCOMYCIN TROUGH OTHER ONE (14:45)
[2018-05-01] MEDS ORDERED: Diatrizoate Meglum/Diatrizoate Sod Liq 9 ML UDC PO ONE (15:15)
--- NOTE | 2018-05-01 20:52 | CT ---
EXAM DATE: 05/01/2018 6:48 PM EDT AGE/SEX: 37 years / Female INDICATIONS: Abdominal pain. Fever. CLINICAL DATA: This is the patient's initial encounter. Patient reports that signs and symptoms have been present for 1 day and indicates a pain score of 10/10. MEDICAL/SURGICAL HISTORY: Rheumatoid arthritis. Fibromyalgia Tonsillectomy. RADIATION DOSE: 6.65 CTDI (mGy) COMPARISON: No prior exams available for comparison. TECHNIQUE: Multiple contiguous axial images were obtained through the abdomen. Images were obtained using multiple row detector helical technique. Using automated exposure control and adjustment of the mA and/or kV according to patient size, radiation dose was kept as low as reasonably achievable to o btain optimal diagnostic quality images. DICOM format image data is available electronically for rev iew and comparison. FINDINGS: Lower Lungs: There are small bilateral pleural effusions. Patchy infiltrate is present in both lower lobes. Liver: The liver has a homogeneous density without space-occupying lesion. There is no dilation of th e biliary tree. There is evidence of periportal edema and diffuse anasarca. There is apparent gallbla dder wall thickening or para cholecystic fluid. Spleen: Homogeneous density without enlargement. Pancreas: Unremarkable without mass or calcification. Kidneys: Normal in size and shape. No evidence of mass or hydronephrosis. Adrenal Glands: Unremarkable. Aorta: The aorta and proximal iliac vessels are grossly unremarkable without aneurysmal dilation. Bowel/Mesentery: There is limited oral opacification portions distal small bowel and proximal colon. There is a moderate amount of stool throughout the colon. There are small collections of ascitic flui d in the pelvis. There is no evidence of free air. There are multiple loops of nondilated air-contain ing small bowel with multiple small air-fluid levels. The bowel loops are grossly unremarkable. The c ecum and sigmoid colon have a normal configuration. Abdominal Wall: Intact. Retroperitoneum: No evidence of adenopathy in the retrocrural, para-aortic, or deep pelvic regions. Bladder: Contours are smooth. Reproductive Organs: No abnormal masses or calcifications seen. Inguinal: The inguinal region is unremarkable without evidence of adenopathy. Bony Structures: Unremarkable. There is diffuse anasarca with increased density in the fat. CONCLUSION: 1. Nonspecific, nonobstructive bowel gas pattern which may represent a mild ileus or gastroenteritis . 2. Apparent gallbladder wall thickening or pericholecystic fluid which may be due to ascites. 3. Anasarca and small amount of ascites. 4. Small bilateral pleural effusion. 5. Infiltrate in both lung bases. Electronically signed by: Yung Ba MD 05/01/2018 8:50 PM EDT
[2018-05-01] MEDS ORDERED: Vancomycin Consult Pharmacy OTHER PRN (21:34)
[2018-05-01] MEDS ORDERED: Vancomycin Inj 900 MG in Sodium Chlor 0.9% Inj 250 ML IV.SIG SCH (22:00)
[2018-05-01] MEDS ORDERED: Morphine Inj 4 MG/ML Vial IV.PUSH PRN (22:00)
[2018-05-01] MEDS ORDERED: Dextrose 5%/NaCl 0.45% Inj 1,000 ML IV.CONT SCH (22:00)
[2018-05-01] MEDS: Vancomycin Inj 1,000 MG in Sodium Chlor 0.9% Inj 250 ML IV.SIG SCH (22:28)
[2018-05-01] MEDS: Aztreonam Inj 2 GM in Sodium Chloride 0.9% Inj 100 ML IV.SIG SCH (23:36)
[2018-05-01] MEDS: Morphine Inj 4 MG/ML Vial IV.PUSH PRN (23:37)
[2018-05-02] MEDS: Vancomycin Inj 1,000 MG in Sodium Chlor 0.9% Inj 250 ML IV.SIG SCH ×3 (05:03→23:29)
[2018-05-02] MEDS: Ketorolac Inj 30 MG/ML (IVP) Vial IV.PUSH SCH ×4 (05:07→23:47)
[2018-05-02] MEDS: Morphine Inj 4 MG/ML Vial IV.PUSH PRN ×4 (06:38→23:29)
[2018-05-02] MEDS: Aztreonam Inj 2 GM in Sodium Chloride 0.9% Inj 100 ML IV.SIG SCH (07:57)
[2018-05-02] MEDS: Sodium Chloride 0.9% 2 ML Flush BID IV.FLUSH SCH ×2 (08:00→21:50)
[2018-05-02] MEDS: Ferrous Sulfate 325 MG Tablet PO SCH (08:00)
[2018-05-02] MEDS: Senna/Docusate Sodium 8.6/50 MG Tablet PO SCH ×2 (08:00→21:45)
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
[2018-05-02] MEDS ORDERED: Azithromycin 250 MG Tablet PO SCH (11:00)
[2018-05-02] MEDS ORDERED: Pharmacy Ordered Lab Info OTHER SCH (13:45)
[2018-05-02] MEDS: Metoclopramide 10 MG Tablet PO SCH ×3 (13:57→21:45)
[2018-05-02 15:48] LABS: Baso % (Auto) 0.3 % (0.0-2.0); Eos # (Auto) 0.1 th/mm3 (0.0-0.4); Eos % (Auto) 3.4 % (0.0-4.0); Hematocrit 31.1 % (35.0-46.0); Hemoglobin 10.8 gm/dL (11.6-15.3); Lymph # (Auto) 0.6 th/mm3 (1.0-4.8); Lymph % (Auto) 17.7 % (9.0-44.0); Mean Corpuscular HGB Conc 34.5 % (32.0-36.0); Mean Corpuscular Hemoglobin 31.4 pg (27.0-34.0); Mean Corpuscular Volume 90.9 fL (80.0-100.0); Mean Platelet Volume 9.4 fL (7.0-11.0); Mono # (Auto) 0.4 th/mm3 (0.0-0.9); Mono % (Auto) 12.5 % (0.0-8.0); Neut # (Auto) 2.4 th/mm3 (1.8-7.7); Neut % (Auto) 66.1 % (16.0-70.0); Platelet Count 148 th/mm3 (150-450); Red Blood Count 3.43 mil/mm3 (4.00-5.30); Red Cell Distribution Width 14.2 % (11.6-17.2); White Blood Count 3.5 th/mm3 (4.0-11.0)
[2018-05-03] MEDS ORDERED: Pharmacy Ordered Lab Info OTHER SCH (05:45)
[2018-05-03] MEDS: Ketorolac Inj 30 MG/ML (IVP) Vial IV.PUSH SCH (05:57)
[2018-05-03] MEDS: Vancomycin Inj 1,000 MG in Sodium Chlor 0.9% Inj 250 ML IV.SIG SCH (05:58)
[2018-05-03] MEDS: Sodium Chloride 0.9% 2 ML Flush BID IV.FLUSH SCH ×2 (08:03→20:29)
[2018-05-03] MEDS: Metoclopramide 10 MG Tablet PO SCH ×4 (08:03→20:29)
[2018-05-03] MEDS: Azithromycin 250 MG Tablet PO SCH (08:03)
[2018-05-03] MEDS: Ferrous Sulfate 325 MG Tablet PO SCH (08:03)
[2018-05-03] MEDS: Morphine Inj 4 MG/ML Vial IV.PUSH PRN ×4 (08:04→21:29)
[2018-05-03] MEDS: Senna/Docusate Sodium 8.6/50 MG Tablet PO SCH ×2 (08:12→20:29)
[2018-05-03 08:32] LABS: Baso # (Auto) 0.1 th/mm3 (0.0-0.2); Baso % (Auto) 1.4 % (0.0-2.0); Eos # (Auto) 0.1 th/mm3 (0.0-0.4); Eos % (Auto) 2.7 % (0.0-4.0); Hematocrit 31.5 % (35.0-46.0); Hemoglobin 10.8 gm/dL (11.6-15.3); Lymph % (Auto) 20.4 % (9.0-44.0); Mean Corpuscular HGB Conc 34.3 % (32.0-36.0); Mean Corpuscular Hemoglobin 31.4 pg (27.0-34.0); Mean Corpuscular Volume 91.3 fL (80.0-100.0); Mean Platelet Volume 9.7 fL (7.0-11.0); Mono # (Auto) 0.6 th/mm3 (0.0-0.9); Mono % (Auto) 11.4 % (0.0-8.0); Neut # (Auto) 3.2 th/mm3 (1.8-7.7); Neut % (Auto) 64.1 % (16.0-70.0); Platelet Count 172 th/mm3 (150-450); Red Blood Count 3.45 mil/mm3 (4.00-5.30); Red Cell Distribution Width 14.1 % (11.6-17.2); White Blood Count 5.1 th/mm3 (4.0-11.0)
[2018-05-03 08:34] LABS: Potassium 4.1 meq/L (3.5-5.1)
[2018-05-03 08:36] LABS: Calcium 7.8 mg/dL (8.5-10.1)
[2018-05-03 08:37] LABS: Carbon Dioxide 17.2 meq/L (21.0-32.0); Magnesium 2.1 mg/dL (1.5-2.5)
[2018-05-03] MEDS: Sod Chloride 0.9% Inj 1,000 ML IV.CONT SCH ×2 (08:51→17:36)
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
[2018-05-03 12:51] LABS: Bilirubin,Urine Negative (Negative); Clarity,Urine Clear (Clear); Color,Urine Straw (Yellw/Straw); Glucose,Urine (UA) Negative (Negative); Leukocyte Esterase,Urine Small (Negative); Nitrite,Urine Negative (Negative); PH,Urine 6.5 (5.0-8.5); Specific Gravity,Urine Less/Equal 1.005 (1.002-1.035); Urobilinogen,Urine 0.2 mg/dL (Less than 2)
[2018-05-03 13:11] LABS: WBC,Urine 0-5 /hpf (0-5)
[2018-05-03 13:12] LABS: Squamous Epithelial Cell,Urine 0-5 /hpf (0-5)
[2018-05-03 13:13] LABS: Bacteria,Urine Occasional /hpf; RBC,Urine 0-3 /hpf (0-3); Trichomonas,Urine Few /hpf
--- NOTE | 2018-05-03 18:26 | P.CONNP ---
History of Present Illness Service: Nephrology Consult date: 05/03/18 Requesting Physician: Guero Dwyer Reason for Consult: Acute renal failure Primary Care Provider: No Primary Care Physician Chief Complaint: Left hand swelling History of Present Illness: Patient is a 37-year-old white female with ascites, abdominal distention, she stated she came in originally for left hand pain, she was working in her yard and cleaning some brushes and she thought she had a spider bite, this got worse over the 4 days prior to admission and she was diagnosed with MRSA infection, patient reports initially her urine output was good and then she developed abdominal pain, some nausea, and this is getting worse with ascites, CT scan of the abdomen showed there is accumulation of ascites, other abnormality was found Gall bladder thickening, small pleural effusion, patient was receiving vancomycin as well. She has MRSA wound infection on the left hand. Review of Systems All other systems reviewed negative except as stated in HPI Constitutional: Reports body ache(s), Reports fatigue Eyes: Denies blind spots, Denies blurry vision, Denies bulging eyes, Denies change in vision, Denies double vision, Denies discharge, Denies dry eyes, Denies floaters, Denies irritation, Denies itchy eyes, Denies loss of vision, Denies pain, Denies requires corrective lenses, Denies sensitivity to light, Denies other Ears, Nose, Mouth, and Throat: Denies abnormal hearing, Denies bleeding gums, Denies bad breath, Denies change in voice, Denies dental pain, Denies difficulty swallowing, Denies dizziness, Denies dry mouth, Denies ear discharge , Denies ear pain, Denies facial pain, Denies headache(s), Denies hearing loss, Denies hoarseness, Denies lip swelling, Denies nosebleed, Denies mouth lesions, Denies mouth pain, Denies nasal congestion, Denies nasal discharge, Denies nasal obstruction, Denies nasal trauma, Denies neck lump, Denies neck pain, Denies nose pain, Denies pain with swallowing, Denies poor balance, Denies post nasal drip, Denies ringing in the ears, Denies sinus pain, Denies sinus pressure , Denies sore throat, Denies throat swelling, Denies tongue swelling, Denies other Cardiovascular: Reports leg swelling Respiratory: Reports cough, Reports shortness of breath with activity Gastrointestinal: Reports abdominal pain, Reports cramping Genitourinary: Reports other Musculoskeletal: Reports other Neurologic: Reports weakness Psychiatric: Reports other PMFSH - History History Provided By: Patient - Medical History Medical History: Medical History (Last Reviewed 05/03/18 @ 18:21 by Michell Casarez MD) Rheumatoid arthritis (Acute) Fibromyalgia (Acute) [place] teeth extracted - Surgical History Surgical History: Surgical History (Last Reviewed 05/03/18 @ 18:21 by Michell Casarez MD) Hx of tonsillectomy (Acute) - Family History Family History: Family History (Last Updated 05/03/18 @ 18:22 by Michell Casarez MD) Other Diabetes No pertinent family history - Social History I have reviewed the patient's Social History: Yes - Tobacco History Second Hand Smoke Exposure: Yes Tobacco Use In Past 30 Days: Yes Smoking Status: Current every day smoker Tobacco Type: Cigarettes - Alcohol History How Often Do You Have a Drink Containing Alcohol: Never - Substance Use History Substance History: Past History - Travel History Recent Travel in the [place] Within the Last 8 Weeks: No Recent Travel Out of the Country Within the Last 8 Weeks: No - Immunization History Tetanus Immunization: >5 Years Hx Influenza Vaccine This Season: No Medications and Allergies Active Medications: Active Medications Acetaminophen (Tylenol) 650 mg PO Q4H PRN PRN Reason: Temp > 100.4 Al Hydroxide/Mg Hydroxide (Milk Of Magnvidhya Liq) 30 ml PO Q12H PRN PRN Reason: Mild Constipation Albuterol (Duoneb Neb (Prn)) 1 ampul NEB Q2HR NEB PRN PRN Reason: SHORTNESS OF BREATH/WHEEZING Albuterol (Duoneb Neb ([place])) 1 ampul NEB Q6HR NEB AZALIA Last Admin: 05/03/18 16:30 Dose: Not Given Azithromycin (Zithromax) 250 mg PO DAILY AZALIA Stop: 05/07/18 08:59 Last Admin: 05/03/18 08:03 Dose: 250 mg Bisacodyl (Dulcolax Supp) 10 mg RECTAL DAILY PRN PRN Reason: SEVERE CONSITIPATION Ferrous Sulfate (Ferosul) 325 mg PO DAILY AZALIA Last Admin: 05/03/18 08:03 Dose: 325 mg Vancomycin HCl 1,000 mg/ (Sodium Chloride) 250 mls @ 250 mls/hr IV.SIG Q8H AZALIA Last Infusion: 05/03/18 07:15 Dose: Infused Sodium Chloride (Ns Inj) 1,000 mls @ 100 mls/hr IV.CONT .Q10H COUNTS INCLUDE 234 BEDS AT THE [facility] Last Admin: 05/03/18 17:36 Dose: 100 mls/hr Cefepime HCl 500 mg/ Sodium (Chloride) 100 mls @ 200 mls/hr IV.SIG Q24H COUNTS INCLUDE 234 BEDS AT THE [facility] Lactulose (Lactulose Liq) 30 ml PO DAILY PRN PRN Reason: SEVERE CONSITIPATION Metoclopramide HCl (Reglan) 5 mg PO ACHS COUNTS INCLUDE 234 BEDS AT THE [facility] Last Admin: 05/03/18 17:35 Dose: 5 mg Morphine Sulfate (Morphine Inj) 2 mg IV.PUSH Q3H PRN PRN Reason: BREAKTHROUGH PAIN Last Admin: 05/03/18 17:35 Dose: 2 mg Naloxone HCl (Narcan Inj) 0.4 mg IV.PUSH UNSCH PRN PRN Reason: SEE LABEL COMMENTS Ondansetron HCl (Zofran Inj) 4 mg IV.PUSH Q6H PRN PRN Reason: NAUSEA OR VOMITING Oxycodone HCl (Roxicodone) 5 mg PO Q4H PRN PRN Reason: PAIN SCALE 3 TO 5 Last Admin: 05/01/18 21:50 Dose: 5 mg Oxycodone HCl (Roxicodone) 10 mg PO Q4H PRN PRN Reason: PAIN SCALE 6 TO 10 Last Admin: 05/03/18 16:17 Dose: 10 mg Pharmacy Profile Note (Vancomycin Consult Pharmacy) 1 each OTHER UNSCH PRN PRN Reason: Pharmacy to dose Senna/Docusate Sodium (Thania-Colace) 1 tab PO BID COUNTS INCLUDE 234 BEDS AT THE [facility] Last Admin: 05/03/18 08:12 Dose: Not Given Sennosides (Senokot) 17.2 mg PO Q12H PRN PRN Reason: Moderate Constipation Silver Sulfadiazine (Silvadene 1% Cream (50 Gm)) 1 applicatio TOPICAL BID COUNTS INCLUDE 234 BEDS AT THE [facility] Last Admin: 05/03/18 08:53 Dose: 1 applicatio Sodium Chloride (Ns Flush) 2 ml IV.FLUSH BID COUNTS INCLUDE 234 BEDS AT THE [facility] Last Admin: 05/03/18 08:03 Dose: 2 ml Sodium Chloride (Ns Flush) 2 ml IV.FLUSH PRN PRN PRN Reason: FLUSH AFTER USING IV ACCESS Allergies Allergy/AdvReac Type Severity Reaction Status Date / Time No Known Allergies Allergy Verified 04/28/18 11:45 Exam Vital signs: Vital Signs 05/02/18 19:49 05/02/18 20:00 05/03/18 00:00 Temperature 97.7 F 97.2 F L Pulse Rate 71 66 55 L Respiratory Rate 17 16 16 Blood Pressure 112/54 L 109/60 Pulse Oximetry 95 96 05/03/18 08:01 05/03/18 11:50 05/03/18 16:00 Temperature 97.2 F L 97.9 F 98.2 F Pulse Rate 77 60 69 Respiratory Rate 18 20 20 Blood Pressure 119/71 126/81 137/86 Pulse Oximetry 96 95 92 L Intake & Output 05/02/18 05/03/18 05/03/18 18:59 06:59 18:59 Intake Total 810 / 810 1830 / 1830 1270 / 1270 Output Total 350 / 350 Balance 810 / 810 1830 / 1830 920 / 920 Weight 56.4 kg Intake: IV 450 / 450 350 / 350 1270 / 1270 NS Inj 1,000 ML @ 100 mls/hr IV 920 / 920 .CONT .Q10H AZALIA Rx#:[id number] Azactam Inj 2 GM In NS Inj 100 100 / 100 ML @ 200 mls/hr IV.SIG Q8H AZALIA Rx#:[id number] Maxipime Inj 1,000 MG In NS Inj 100 / 100 100 / 100 100 ML @ 200 mls/hr IV.SIG Q12H AZALIA Rx#:[id number] Vancomycin Inj 1,000 MG In NS 250 / 250 250 / 250 250 / 250 Inj 250 ML @ 250 mls/hr IV.SIG Q8H AZALIA Rx#:[id number] Rocephin Inj 1,000 MG In NS Inj 100 / 100 100 ML @ 200 mls/hr IV.SIG Q12H AZALIA Rx#:[id number] Oral 360 / 360 1480 / 1480 Output: Urine 350 / 350 Other: # Voids 2 1 Date of Last Bowel Movement 05/02/18 Narrative: GENERAL: Well-nourished, well-developed patient. SKIN: Warm and dry. HEAD: Normocephalic. EYES: No scleral icterus. No injection or drainage. NECK: Supple, trachea midline. No JVD or lymphadenopathy. CARDIOVASCULAR: Regular rate and rhythm without murmurs, gallops, or rubs. RESPIRATORY: Breath sounds equal bilaterally. No accessory muscle use. GASTROINTESTINAL: Abdomen soft, distended. EXTREMITIES: Mild edema NEUROLOGICAL: Awake, alert, and oriented x 3. Non-focal. Results - Lab Results 05/03/18 05:43 05/04/18 08:15 Most recent lab results Calcium 7.8 mg/dL (8.5-10.1) L 05/03/18 05:43 Magnesium 2.1 mg/dL (1.5-2.5) 05/03/18 05:43 Assessment and Plan - Assessment (1) Acute renal failure Code(s): N17.9 - Acute kidney failure, unspecified Status: Acute (2) Abscess of thumb, left Code(s): L02.512 - Cutaneous abscess of left hand Status: Acute (3) Rheumatoid arthritis Code(s): M06.9 - Rheumatoid arthritis, unspecified Status: Acute (4) Fibromyalgia Code(s): M79.7 - Fibromyalgia Status: Acute - Plan Patient has history of rheumatoid arthritis, recently had an infection with MRSA use vancomycin, Potentially ATN versus interstitial nephritis is entertained Get ultrasound of the abdomen Ascites with abnormal liver function tests should be investigated Hepatitis screen, MONA, serum complement ordered Urinalysis did not picked up any active sediment Follow vancomycin trough level Avoid nephrotoxins Continue to monitor BMP
[2018-05-04] MEDS: Sod Chloride 0.9% Inj 1,000 ML IV.CONT SCH ×4 (03:39→23:42)
[2018-05-04] MEDS: Acetaminophen 325 MG Tablet PO PRN ×2 (04:57→23:42)
[2018-05-04 08:43] LABS: Calcium 8.2 mg/dL (8.5-10.1); Carbon Dioxide 17.7 meq/L (21.0-32.0)
[2018-05-04] MEDS: Azithromycin 250 MG Tablet PO SCH (09:09)
[2018-05-04] MEDS: Ferrous Sulfate 325 MG Tablet PO SCH (09:09)
[2018-05-04] MEDS: Metoclopramide 10 MG Tablet PO SCH ×2 (09:10→11:18)
[2018-05-04] MEDS: Sodium Chloride 0.9% 2 ML Flush BID IV.FLUSH SCH ×2 (09:20→22:04)
--- NOTE | 2018-05-04 09:40 | US ---
EXAM DATE: 05/04/2018 12:00 AM EDT AGE/SEX: 37 years / Female INDICATIONS: Abdominal pain with acute renal failure. Also evaluate for ascites. CLINICAL DATA: This is the patient's initial encounter. Patient reports that signs and symptoms have been present for 1 day and indicates a pain score of 4/10. MEDICAL/SURGICAL HISTORY: Rheumatoid arthritis. Hepatitis C. MRSA. Fibromyalgia. Tonsillecto my. [place] teeth extracted. COMPARISON: [facility], CT ABDOMEN & PELVIS W/O CONTRAST, 05/01/2018. . MEASUREMENTS: Liver:__ 19.7 cm. Common Bile Duct:___ 4mm. Right Kidney:___12.6 x 4.7 x 6.3 cm. Left Kidney:___13.1 x 5.0 x 5.8 cm. Spleen:___15.0 cm. FINDINGS: Liver: Increased echotexture without focal lesion or ductal dilation. Portal Vein: Hepatopedal flow seen in portal vein. Common Duct: No intraluminal mass or stone visualized. Gallbladder: No definite gallstones in the gallbladder. There is gallbladder wall thickening at 1 c m. There is some mild fluid around the gallbladder. Pancreas: The visualized portions are within normal limits Right Kidney: Increased echotexture. No mass or hydronephrosis. Left Kidney: Increased echotexture. No mass or hydronephrosis. Ascites: There is a small amount of ascites in the abdomen. Pleural Effusion: Bilateral Spleen: The spleen appears to be mildly enlarged. There is a splenule in the hilum of the spleen. Aorta: Non aneurysmal. IVC: Within normal limits Other: None. CONCLUSION: 1. No evidence of gallstones in the gallbladder. However, there is thickening of the gallbladder wal l at 1 cm with a small amount of pericholecystic fluid. This can be seen with either acute or chronic acalculous cholecystitis. This needs to be correlated patient's physical and clinical exam as well a s laboratory values. 2. There is some increased echogenicity of the liver parenchyma suggestive of some fatty infiltratio n. 3. There is a small amount of ascites in the abdomen. This is insufficient for paracentesis. 4. There is evidence of bilateral pleural effusions. 5. Mild hepatomegaly and splenomegaly. Electronically signed by: Prabhakar Chow MD 05/04/2018 9:39 AM EDT
[2018-05-04] MEDS: Senna/Docusate Sodium 8.6/50 MG Tablet PO SCH (10:40)
[2018-05-04 11:09] LABS: Vancomycin,Random 61.4 Comment
[2018-05-04] MEDS: Cefepime Inj 500 MG in Sodium Chlor 0.9% Inj 100 ML IV.SIG SCH (11:15)
[2018-05-04] MEDS: Morphine Inj 4 MG/ML Vial IV.PUSH PRN ×3 (11:16→22:32)
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
[2018-05-04] MEDS: Lactobacillus Acidophilus/L. Spores Tablet PO SCH ×2 (12:53→17:30)
--- NOTE | 2018-05-04 17:21 | P.CONGS ---
[facility] Gen Surgery Consult Note Consult date: 05/04/18 Reason for consult: abdominal pain Requesting physician: Guero Dwyer Narrative: This is a 37 year old female with a past medical history significant for IVDA came to the ED several days ago for a LEFT hand cellulitis. Dr. Horvath took the patient to the OR for drainage of an abscess. The patient was started on Vancomycin for a +MRSA culture. The patient was getting ready to discharge over the weekend when she developed acute onset of abdominal pain with RUQ and midepigastric tenderness. She reports no nausea or vomiting. She reports no chills but she does report "on and off again fevers." She is having diarrhea. A CT abdomen/pelvis was obtained which shows apparent gallbladder wall thickening or pericholecystic fluid and a small amount of ascites. An ultrasound of the abdomen reveals no evidence of gallstones but there is gallbladder wall thickening with a small amount of pericholecystic fluid. Nephrology has seen the patient for an elevated creatinine of 5. A General Surgery consultation has been requested. Review of Systems All other systems reviewed negative except as stated in [facility] PMF[facility] - History History Provided By: Patient - Medical History Medical History: Medical History (Last Reviewed 05/04/18 @ 17:18 by JARAD Kim) Rheumatoid arthritis (Acute) Fibromyalgia (Acute) [place] teeth extracted - Surgical History Surgical History: Surgical History (Last Updated 05/06/18 @ 15:41 by JARAD Kim) Hx of tonsillectomy (Acute) S/P laparoscopy - Family History Family History: Family History (Last Updated 05/03/18 @ 18:22 by Michell Casarez MD) Other Diabetes No pertinent family history - Tobacco History Second Hand Smoke Exposure: Yes Tobacco Use In Past 30 Days: Yes Smoking Status: Current every day smoker Tobacco Type: Cigarettes - Alcohol History How Often Do You Have a Drink Containing Alcohol: Never - Substance Use History Substance History: Past History - Travel History Recent Travel in the [place] Within the Last 8 Weeks: No Recent Travel Out of the Country Within the Last 8 Weeks: No - Immunization History Tetanus Immunization: >5 Years Hx Influenza Vaccine This Season: No Medications and Allergies Allergies Allergy/AdvReac Type Severity Reaction Status Date / Time No Known Allergies Allergy Verified 04/28/18 11:45 Active Medications: Active Medications Acetaminophen (Tylenol) 650 mg PO Q4H PRN PRN Reason: Temp > 100.4 Last Admin: 05/04/18 04:57 Dose: 650 mg Albuterol (Duoneb Neb (Prn)) 1 ampul NEB Q2HR NEB PRN PRN Reason: SHORTNESS OF BREATH/WHEEZING Azithromycin (Zithromax) 250 mg PO DAILY [facility] Stop: 05/07/18 08:59 Last Admin: 05/04/18 09:09 Dose: 250 mg Bisacodyl (Dulcolax Supp) 10 mg RECTAL DAILY PRN PRN Reason: SEVERE CONSITIPATION Ferrous Sulfate (Ferosul) 325 mg PO DAILY [facility] Last Admin: 05/04/18 09:09 Dose: 325 mg Vancomycin HCl 1,000 mg/ (Sodium Chloride) 250 mls @ 250 mls/hr IV.SIG Q8H [facility] Last Infusion: 05/03/18 07:15 Dose: Infused Sodium Chloride (Ns Inj) 1,000 mls @ 100 mls/hr IV.CONT .Q10H [facility] Last Admin: 05/04/18 12:53 Dose: 100 mls/hr Cefepime HCl 500 mg/ Sodium (Chloride) 100 mls @ 200 mls/hr IV.SIG DAILY@0800 [facility] Last Admin: 05/04/18 11:15 Dose: 200 mls/hr Lactobacillus Acidophilus (Lactinex) 1 tab PO TID [facility] Last Admin: 05/04/18 12:53 Dose: 1 tab Lactulose (Lactulose Liq) 30 ml PO DAILY PRN PRN Reason: SEVERE CONSITIPATION Morphine Sulfate (Morphine Inj) 2 mg IV.PUSH Q3H PRN PRN Reason: BREAKTHROUGH PAIN Last Admin: 05/04/18 11:16 Dose: 2 mg Naloxone HCl (Narcan Inj) 0.4 mg IV.PUSH UNSCH PRN PRN Reason: SEE LABEL COMMENTS Ondansetron HCl (Zofran Inj) 4 mg IV.PUSH Q6H PRN PRN Reason: NAUSEA OR VOMITING Oxycodone HCl (Roxicodone) 5 mg PO Q4H PRN PRN Reason: PAIN SCALE 3 TO 5 Last Admin: 05/01/18 21:50 Dose: 5 mg Oxycodone HCl (Roxicodone) 10 mg PO Q4H PRN PRN Reason: PAIN SCALE 6 TO 10 Last Admin: 05/04/18 12:53 Dose: 10 mg Pharmacy Profile Note (Vancomycin Consult Pharmacy) 1 each OTHER UNSCH PRN PRN Reason: Pharmacy to dose Sennosides (Senokot) 17.2 mg PO Q12H PRN PRN Reason: Moderate Constipation Silver Sulfadiazine (Silvadene 1% Cream (50 Gm)) 1 applicatio TOPICAL BID [facility] Last Admin: 05/04/18 11:16 Dose: 1 applicatio Sodium Chloride (Ns Flush) 2 ml IV.FLUSH BID [facility] Last Admin: 05/04/18 09:20 Dose: Not Given Sodium Chloride (Ns Flush) 2 ml IV.FLUSH PRN PRN PRN Reason: FLUSH AFTER USING IV ACCESS Exam Vital signs: Vital Signs 05/03/18 20:00 05/04/18 00:00 05/04/18 04:00 Temperature 98.5 F 99.2 F 100.5 F H Pulse Rate 68 74 76 Respiratory Rate 18 20 20 Blood Pressure 133/84 119/81 124/82 Pulse Oximetry 99 93 L 92 L 05/04/18 08:00 05/04/18 09:38 05/04/18 11:18 Temperature 98.4 F Pulse Rate 67 Respiratory Rate 18 18 18 Blood Pressure 136/84 Pulse Oximetry 94 L 05/04/18 12:00 05/04/18 16:00 Temperature 97.2 F L 98.7 F Pulse Rate 61 70 Respiratory Rate 18 18 Blood Pressure 134/89 147/98 H Pulse Oximetry 94 L 94 L Intake & Output 05/03/18 05/04/18 05/04/18 18:59 06:59 18:59 Intake Total 1731 / 1731 1480 / 1480 1000 / 1000 Output Total 650 / 650 1175 / 1175 Balance 1081 / 1081 305 / 305 1000 / 1000 Weight 67.3 kg Intake: IV 1270 / 1270 1000 / 1000 1000 / 1000 NS Inj 1,000 ML @ 100 mls/hr IV 920 / 920 1000 / 1000 1000 / 1000 .CONT .Q10H [facility] Rx#:[id number] Maxipime Inj 1,000 MG In NS Inj 100 / 100 100 ML @ 200 mls/hr IV.SIG Q12H [facility] Rx#:[id number] Vancomycin Inj 1,000 MG In NS 250 / 250 Inj 250 ML @ 250 mls/hr IV.SIG Q8H [facility] Rx#:[id number] Oral 461 / 461 480 / 480 Output: Urine 650 / 650 1175 / 1175 Other: # Voids 1 1 # Bowel Movements 2 Narrative: GENERAL: 37 year old female resting in bed in moderate distress secondary to abdominal pain. SKIN: Warm and dry. HEAD: Atraumatic. Normocephalic. EYES: Pupils equal and round. No scleral icterus. No injection or drainage. ENT: No nasal bleeding or discharge. Mucous membranes pink and moist. NECK: Trachea midline. CARDIOVASCULAR: Regular rate and rhythm. RESPIRATORY: No accessory muscle use. Clear to auscultation. Breath sounds equal bilaterally. GASTROINTESTINAL: Abdomen soft, distended. Tender in the RUQ to palpation. Old laparoscopic scars visualized. No hernias present. MUSCULOSKELETAL: Extremities without clubbing, cyanosis, or edema. LEFT hand with bandage. NEUROLOGICAL: Awake and alert. No obvious cranial nerve deficits. Motor grossly within normal limits. Five out of 5 muscle strength in the arms and legs. Normal speech. PSYCHIATRIC: Appropriate mood and affect; insight and judgment normal. - Routine Respiratory Exam Present: CTA bilaterally - Routine Cardiovascular Exam Present: tachycardia - Routine Abdominal Exam Present: soft, tenderness (diffuse, not specific to RUQ), distended Results - Labs 05/06/18 11:45 05/09/18 05:45 Laboratory Results - last 24 hr 05/03/18 05/03/18 05/04/18 17:03 17:03 08:15 Sodium Potassium Chloride Carbon Dioxide Anion Gap BUN Creatinine Estimated GFR Random Glucose Calcium Random Vancomycin 71.5 Complement C3 94 Complement C4 15 05/04/18 08:15 Sodium 144 Potassium 4.0 Chloride 115 H Carbon Dioxide 17.7 L Anion Gap 11 BUN 25 H Creatinine 5.80 H Estimated GFR 8 L Random Glucose 83 Calcium 8.2 L Random Vancomycin 61.4 Complement C3 Complement C4 - Imaging Imaging: ITS Impressions Hand X-Ray 04/28/18 14:51 CONCLUSION: Negative examination Abdomen/Pelvis CT 05/01/18 00:00 CONCLUSION: 1. Nonspecific, nonobstructive bowel gas pattern which may represent a mild ileus or gastroenteritis. 2. Apparent gallbladder wall thickening or pericholecystic fluid which may be due to ascites. 3. Anasarca and small amount of ascites. 4. Small bilateral pleural effusion. 5. Infiltrate in both lung bases. Abdomen Ultrasound 05/04/18 00:00 CONCLUSION: 1. No evidence of gallstones in the gallbladder. However, there is thickening of the gallbladder wall at 1 cm with a small amount of pericholecystic fluid. This can be seen with either acute or chronic acalculous cholecystitis. This needs to be correlated patient's physical and clinical exam as well as laboratory values. 2. There is some increased echogenicity of the liver parenchyma suggestive of some fatty infiltration. 3. There is a small amount of ascites in the abdomen. This is insufficient for paracentesis. 4. There is evidence of bilateral pleural effusions. 5. Mild hepatomegaly and splenomegaly. CT scan - abdomen: report reviewed, image reviewed US - abdomen: report reviewed Assessment and Plan - Assessment (1) Abdominal pain Code(s): R10.9 - Unspecified abdominal pain Status: Acute Plan: 37 year old female hospitalized for LEFT hand abscess; now with RUQ abdominal pain; ascites; ARF -Will order LFTs -HIDA scan if total bilirubin normal -Serology + hepatitis C -Given recent infection, ARF and ascites---patient is a poor surgical candidate at this time -Will follow up on HIDA scan and make recommendations -Thank you for this consult; We will continue to follow Pain is actually diffuse and nonspecific; await renal service input Will attempt to obtain LFT's tonight; I attempted femoral stick unsuccessfully due to poor peripheral access Need to wait on HIDA until LFT's are obtained. Will follow The exam, history, and the medical decision-making described in the above note were completed with the assistance of the mid-level provider. I reviewed and agree with the findings presented. I attest that I had a [id number] encounter with the patient on the same day, and personally performed and documented my assessment and findings in the medical record. - Plan Discussed Condition With: Dr. Breezy Ferrell
--- NOTE | 2018-05-04 18:28 | P.PNNP ---
Subjective Interval history: Has persistent abdominal distention Physical Exam Vital signs: Vital Signs 05/03/18 20:00 05/04/18 00:00 05/04/18 04:00 Temperature 98.5 F 99.2 F 100.5 F H Pulse Rate 68 74 76 Respiratory Rate 18 20 20 Blood Pressure 133/84 119/81 124/82 Pulse Oximetry 99 93 L 92 L 05/04/18 08:00 05/04/18 09:38 05/04/18 11:18 Temperature 98.4 F Pulse Rate 67 Respiratory Rate 18 18 18 Blood Pressure 136/84 Pulse Oximetry 94 L 05/04/18 12:00 05/04/18 13:23 05/04/18 16:00 Temperature 97.2 F L 98.7 F Pulse Rate 61 70 Respiratory Rate 18 18 18 Blood Pressure 134/89 147/98 H Pulse Oximetry 94 L 94 L Intake & Output 05/03/18 05/04/18 05/04/18 18:59 06:59 18:59 Intake Total 1731 / 1731 1480 / 1480 1000 / 1000 Output Total 650 / 650 1175 / 1175 Balance 1081 / 1081 305 / 305 1000 / 1000 Weight 67.3 kg Intake: IV 1270 / 1270 1000 / 1000 1000 / 1000 NS Inj 1,000 ML @ 100 mls/hr IV 920 / 920 1000 / 1000 1000 / 1000 .CONT .Q10H [facility] Rx#:[id number] Maxipime Inj 1,000 MG In NS Inj 100 / 100 100 ML @ 200 mls/hr IV.SIG Q12H [facility] Rx#:[id number] Vancomycin Inj 1,000 MG In NS 250 / 250 Inj 250 ML @ 250 mls/hr IV.SIG Q8H [facility] Rx#:[id number] Oral 461 / 461 480 / 480 Output: Urine 650 / 650 1175 / 1175 Other: # Voids 1 1 # Bowel Movements 2 Narrative: GENERAL: 37 year old female resting in bed in moderate distress secondary to abdominal pain. SKIN: Warm and dry. HEAD: Atraumatic. Normocephalic. EYES: Pupils equal and round. No scleral icterus. No injection or drainage. ENT: No nasal bleeding or discharge. Mucous membranes pink and moist. NECK: Trachea midline. CARDIOVASCULAR: Regular rate and rhythm. RESPIRATORY: No accessory muscle use. Clear to auscultation. Breath sounds equal bilaterally. GASTROINTESTINAL: Abdomen soft, distended. Tender in the RUQ to palpation. Old laparoscopic scars visualized. No hernias present. MUSCULOSKELETAL: Extremities without clubbing, cyanosis, or edema. No obvious deformities. NEUROLOGICAL: Awake and alert. No obvious cranial nerve deficits. Motor grossly within normal limits. Five out of 5 muscle strength in the arms and legs. Normal speech. PSYCHIATRIC: Appropriate mood and affect; insight and judgment normal. Assessment and Plan - Assessment (1) Acute renal failure Code(s): N17.9 - Acute kidney failure, unspecified Status: Acute (2) Abscess of thumb, left Code(s): L02.512 - Cutaneous abscess of left hand Status: Acute (3) Rheumatoid arthritis Code(s): M06.9 - Rheumatoid arthritis, unspecified Status: Acute (4) Fibromyalgia Code(s): M79.7 - Fibromyalgia Status: Acute - Plan Patient has history of rheumatoid arthritis, recently had an infection with MRSA use vancomycin, Potentially ATN versus interstitial nephritis is entertained Get ultrasound of the abdomen Ascites with abnormal liver function tests hepatitis C positive Dialysis is considered as creatinine continues to rise we will request Vas-Cath Possible ATN from high dose vancomycin toxicity vancomycin trough level elevated stopped yesterday Discussed with Dr. Tijerina, he ordered HIDA scan Avoid nephrotoxins Continue to monitor BMP
[2018-05-04] MEDS ORDERED: Gelatin 12 MM/7 MM Topical Foam TOPICAL PRN (18:31)
[2018-05-04] MEDS ORDERED: Acetaminophen 325 MG Tablet PO PRN (18:31)
[2018-05-04] MEDS ORDERED: Albumin Human 25% Inj 100 ML IV.SIG PRN (18:31)
[2018-05-04] MEDS ORDERED: Sod Chloride 0.9% Inj 1,000 ML OTHER PRN ×2 (18:31)
[2018-05-04] MEDS ORDERED: Sod Chloride 0.9% Inj 1,000 ML IV.CONT PRN (18:31)
[2018-05-04] MEDS ORDERED: Heparin 10,000 UNITS/10 ML Vial (for IV use) OTHER PRN ×2 (18:31)
[2018-05-04] MEDS: Albumin Human 25% Inj 100 ML IV.SIG SCH (22:03)
[2018-05-05 01:59] LABS: Bilirubin,Urine Negative (Negative); Clarity,Urine Clear (Clear); Glucose,Urine (UA) Negative (Negative); Leukocyte Esterase,Urine Trace (Negative); Nitrite,Urine Negative (Negative); PH,Urine 5.5 (5.0-8.5); Specific Gravity,Urine 1.015 (1.002-1.035); Urobilinogen,Urine 0.2 mg/dL (Less than 2)
[2018-05-05 02:07] LABS: Color,Urine Straw (Yellw/Straw)
[2018-05-05 02:08] LABS: RBC,Urine 0-3 /hpf (0-3); Squamous Epithelial Cell,Urine 0-5 /hpf (0-5); WBC,Urine 0-5 /hpf (0-5)
[2018-05-05] MEDS ORDERED: Epoetin Alfa Inj 4,000 UNIT/ML Vial IV.PUSH PRN (08:15)
[2018-05-05] MEDS: Sod Chloride 0.9% Inj 1,000 ML IV.CONT SCH ×2 (09:40→20:00)
[2018-05-05] MEDS: Sodium Chloride 0.9% 2 ML Flush BID IV.FLUSH SCH ×2 (09:41→20:06)
[2018-05-05] MEDS: Lactobacillus Acidophilus/L. Spores Tablet PO SCH ×3 (09:41→17:26)
[2018-05-05] MEDS: Ferrous Sulfate 325 MG Tablet PO SCH (09:42)
[2018-05-05] MEDS: Azithromycin 250 MG Tablet PO SCH (09:42)
[2018-05-05] MEDS: Albumin Human 25% Inj 100 ML IV.SIG SCH ×2 (09:43→20:04)
--- NOTE | 2018-05-05 10:01 | P.PN ---
Subjective Interval history: Follow-up left arm cellulitis/abscess s/p I&D/acute kidney injury/ May 05, 2018-patient seen and examined, complains currently of migraine headaches. Also reported abdominal distention pressure but no pain. Reported episode of emesis overnight. Spiking fevers. Physical Exam Vital signs: Vital Signs 05/04/18 11:18 05/04/18 12:00 05/04/18 13:23 Temperature 97.2 F L Pulse Rate 61 Respiratory Rate 18 18 18 Blood Pressure 134/89 Pulse Oximetry 94 L 05/04/18 16:00 05/04/18 17:31 05/04/18 20:00 Temperature 98.7 F 99.3 F Pulse Rate 70 62 Respiratory Rate 18 18 16 Blood Pressure 147/98 H 139/69 Pulse Oximetry 94 L 95 05/05/18 00:00 05/05/18 01:32 05/05/18 06:30 Temperature 100.4 F H 99.9 F H Pulse Rate 58 L Respiratory Rate 16 20 Blood Pressure Pulse Oximetry 93 L 05/05/18 08:00 Temperature 98.7 F Pulse Rate 82 Respiratory Rate 20 Blood Pressure 145/91 H Pulse Oximetry 91 L Intake & Output 05/04/18 05/05/18 05/05/18 18:59 06:59 18:59 Intake Total 1700 / 1700 1660 / 1660 1000 / 1000 Output Total 1200 / 1200 Balance 500 / 500 1660 / 1660 1000 / 1000 Weight 67.3 kg Intake: IV 1100 / 1100 1100 / 1100 1000 / 1000 NS Inj 1,000 ML @ 100 mls/hr IV 1000 / 1000 1000 / 1000 1000 / 1000 .CONT .Q10H DELL Rx#:[id number] Flexbumin 25% Inj 100 ML @ 60 100 / 100 mls/hr IV.SIG Q12H DELL Rx#: [id number] Maxipime Inj 500 MG In NS Inj 100 / 100 100 ML @ 200 mls/hr IV.SIG DAILY@0800 DELL Rx#:[id number] Oral 600 / 600 560 / 560 Output: Urine 1200 / 1200 Other: Date of Last Bowel Movement 05/04/18 05/04/18 # Bowel Movements 1 Narrative: GENERAL: NAD SKIN: Warm and dry. dressing over left arm HEAD: Atraumatic. Normocephalic. EYES: Pupils equal and round. No scleral icterus. No injection or drainage. ENT: No nasal bleeding or discharge. Mucous membranes pink and moist. NECK: Trachea midline. No JVD. CARDIOVASCULAR: Regular rate and rhythm. RESPIRATORY: No accessory muscle use. Clear to auscultation. Breath sounds equal bilaterally. GASTROINTESTINAL: Abdomen soft, non-tender, distended. Hepatic and splenic margins not palpable. +BS MUSCULOSKELETAL: Extremities without clubbing, cyanosis, or edema. No obvious deformities. NEUROLOGICAL: Awake and alert. No obvious cranial nerve deficits. Motor grossly within normal limits. Five out of 5 muscle strength in the arms and legs. Normal speech. PSYCHIATRIC: Appropriate mood and affect; insight and judgment normal. Results - Labs CBC & Chem 7: 05/03/18 05:43 05/04/18 08:15 Laboratory Results - last 24 hr 05/04/18 05/04/18 05/04/18 08:15 08:15 17:10 Urine Color Urine Clarity Urine pH Ur Specific [place] Urine Protein Urine Glucose (UA) Urine Ketones Urine Occult Blood Urine Nitrate Urine Bilirubin Urine Urobilinogen Ur Leukocyte Esterase Urine RBC Urine WBC Ur Squamous Epith Cells Micro UA Comment Ur Microscopic Review Urine Culture Comments Urine Eosinophils Stl C.difficile DNA Amp Negative St C. diff Tox Epid 027 Negative Random Vancomycin 61.4 Complement C4 15 05/04/18 05/05/18 22:01 01:45 Urine Color Straw Urine Clarity Clear Urine pH 5.5 Ur Specific [place] 1.015 Urine Protein Negative Urine Glucose (UA) Negative Urine Ketones Negative Urine Occult Blood Negative Urine Nitrate Negative Urine Bilirubin Negative Urine Urobilinogen 0.2 Ur Leukocyte Esterase Trace H Urine RBC 0-3 Urine WBC 0-5 Ur Squamous Epith Cells 0-5 Micro UA Comment Culture not ind Ur Microscopic Review Microscopic reviewed Urine Culture Comments Culture not ind Urine Eosinophils None seen Stl C.difficile DNA Amp St C. diff Tox Epid 027 Random Vancomycin Complement C4 Microbiology 05/04/18 17:10 Stool Stool Occult Blood (MICHAEL) - Final Hemoccult positive 05/03/18 12:00 Clean Catch Urine Urine Culture - Preliminary No growth in 24 hours 05/01/18 20:35 Blood - Peripheral Aerobic Blood Culture - Preliminary No growth in 3 days 05/01/18 20:35 Blood - Peripheral Anaerobic Blood Culture - Preliminary No growth in 3 days 05/01/18 20:30 Blood - Peripheral Aerobic Blood Culture - Preliminary No growth in 3 days 05/01/18 20:30 Blood - Peripheral Anaerobic Blood Culture - Preliminary No growth in 3 days - Procedures none Assessment and Plan - Assessment (1) Abscess of thumb, left Code(s): L02.512 - Cutaneous abscess of left hand Status: Acute - Plan 37-year-old female with Acute kidney injury ATN versus interstitial nephritis Appreciate input from nephrology Secondary to worsening renal indices, plan for Vas-Cath placement with possible starting of hemodialysis Continue to monitor BUN and creatinine, and avoid all nephrotoxic drug Vancomycin currently on hold Unspecified abdominal pain Abdominal ultrasound noted Appreciate input from general surgery pending HIDA scan However per Gen surgery , patient is currently a poor surgical candidate C. difficile PCR negative Hospital-acquired pneumonia Currently on cefepime, p.o. azithromycin. Vancomycin on hold secondary to worsening renal function Blood culture negative to date Left hand cellulitis/Abscess Status post I&D by hand surgery Culture positive for MRSA Previously on vancomycin, however secondary to worsening renal function this medication is on hold May consider Zyvox Ascites with abnormal liver function tests hepatitis C positive Continue with Lasix Will need outpatient follow-up with Hepatology Ileus-resolved Will discontinue morphine IV as needed Previous history of IVDU Extensively counseled against History of iron deficiency anemia Currently on iron sulfate DVT prophylaxis with SCD
[2018-05-05 10:39] LABS: Creatinine,Urine Random 16 mg/dL (27-300)
[2018-05-05] MEDS: Cefepime Inj 500 MG in Sodium Chlor 0.9% Inj 100 ML IV.SIG SCH (11:38)
[2018-05-05] MEDS ORDERED: Heparin Central Flush 100 UNIT/ML 5 ML Vial IV.FLUSH PRN (13:40)
--- NOTE | 2018-05-05 17:12 | P.PNNP ---
Subjective Interval history: Patient is feeling tired had dialysis Physical Exam Vital signs: Vital Signs 05/04/18 17:31 05/04/18 20:00 05/05/18 00:00 Temperature 99.3 F 100.4 F H Pulse Rate 62 58 L Respiratory Rate 18 16 16 Blood Pressure 139/69 Pulse Oximetry 95 93 L 05/05/18 01:32 05/05/18 06:30 05/05/18 08:00 Temperature 99.9 F H 98.7 F Pulse Rate 82 Respiratory Rate 20 20 Blood Pressure 145/91 H Pulse Oximetry 91 L 05/05/18 10:12 05/05/18 12:00 05/05/18 13:32 Temperature 99.9 F H Pulse Rate 83 Respiratory Rate 18 20 18 Blood Pressure 144/87 H Pulse Oximetry 90 L Intake & Output 05/04/18 05/05/18 05/05/18 18:59 06:59 18:59 Intake Total 1700 / 1700 1660 / 1660 1200 / 1200 Output Total 1200 / 1200 2150 / 2150 Balance 500 / 500 1660 / 1660 -950 / -950 Weight 67.3 kg Intake: IV 1100 / 1100 1100 / 1100 1200 / 1200 NS Inj 1,000 ML @ 100 mls/hr IV 1000 / 1000 1000 / 1000 1000 / 1000 .CONT .Q10H DELL Rx#:[id number] Flexbumin 25% Inj 100 ML @ 60 100 / 100 100 / 100 mls/hr IV.SIG Q12H DELL Rx#: [id number] Maxipime Inj 500 MG In NS Inj 100 / 100 100 / 100 100 ML @ 200 mls/hr IV.SIG DAILY@0800 DELL Rx#:[id number] Oral 600 / 600 560 / 560 Output: Urine 1200 / 1200 650 / 650 Hemodialysis Amount 1500 / 1500 Other: Date of Last Bowel Movement 05/04/18 05/04/18 # Bowel Movements 1 Narrative: GENERAL: NAD SKIN: Warm and dry. dressing over left arm HEAD: Atraumatic. Normocephalic. EYES: Pupils equal and round. No scleral icterus. No injection or drainage. ENT: No nasal bleeding or discharge. Mucous membranes pink and moist. NECK: Trachea midline. No JVD. CARDIOVASCULAR: Regular rate and rhythm. RESPIRATORY: No accessory muscle use. Clear to auscultation. Breath sounds equal bilaterally. GASTROINTESTINAL: Abdomen soft, non-tender, distended. Hepatic and splenic margins not palpable. +BS MUSCULOSKELETAL: Extremities without clubbing, cyanosis, or edema. No obvious deformities. NEUROLOGICAL: Awake and alert. No obvious cranial nerve deficits. Motor grossly within normal limits. Five out of 5 muscle strength in the arms and legs. Normal speech. PSYCHIATRIC: Appropriate mood and affect; insight and judgment normal. Assessment and Plan - Assessment (1) Acute renal failure Code(s): N17.9 - Acute kidney failure, unspecified Status: Acute (2) Abscess of thumb, left Code(s): L02.512 - Cutaneous abscess of left hand Status: Acute (3) Rheumatoid arthritis Code(s): M06.9 - Rheumatoid arthritis, unspecified Status: Acute (4) Fibromyalgia Code(s): M79.7 - Fibromyalgia Status: Acute - Plan Patient has history of rheumatoid arthritis, recently had an infection with MRSA use vancomycin, Potentially ATN versus interstitial nephritis is entertained Patient is on dialysis urine output picked up with Lasix Hemodialysis ultrafiltration of 1.5 L She is likely having ATN from vancomycin Monitor labs and hemodialysis accordingly I told her she is in acute renal failure there is a potential of recovery
--- NOTE | 2018-05-05 17:56 | P.PNGS ---
Subjective Interval history: Resting in bed Reports abdominal pain better Labs not drawn during hemodialysis Physical Exam Vital signs: Vital Signs 05/04/18 20:00 05/05/18 00:00 05/05/18 01:32 Temperature 99.3 F 100.4 F H 99.9 F H Pulse Rate 62 58 L Respiratory Rate 16 16 Blood Pressure 139/69 Pulse Oximetry 95 93 L 05/05/18 06:30 05/05/18 08:00 05/05/18 10:12 Temperature 98.7 F Pulse Rate 82 Respiratory Rate 20 20 18 Blood Pressure 145/91 H Pulse Oximetry 91 L 05/05/18 12:00 05/05/18 13:32 05/05/18 17:39 Temperature 99.9 F H Pulse Rate 83 88 Respiratory Rate 20 18 18 Blood Pressure 144/87 H 126/88 Pulse Oximetry 90 L Intake & Output 05/04/18 05/05/18 05/05/18 18:59 06:59 18:59 Intake Total 1700 / 1700 1660 / 1660 1200 / 1200 Output Total 1200 / 1200 2150 / 2150 Balance 500 / 500 1660 / 1660 -950 / -950 Weight 67.3 kg Intake: IV 1100 / 1100 1100 / 1100 1200 / 1200 NS Inj 1,000 ML @ 100 mls/hr IV 1000 / 1000 1000 / 1000 1000 / 1000 .CONT .Q10H DELL Rx#:[id number] Flexbumin 25% Inj 100 ML @ 60 100 / 100 100 / 100 mls/hr IV.SIG Q12H DELL Rx#: [id number] Maxipime Inj 500 MG In NS Inj 100 / 100 100 / 100 100 ML @ 200 mls/hr IV.SIG DAILY@0800 DELL Rx#:[id number] Oral 600 / 600 560 / 560 Output: Urine 1200 / 1200 650 / 650 Hemodialysis Amount 1500 / 1500 Other: Date of Last Bowel Movement 05/04/18 05/04/18 # Bowel Movements 1 Narrative: Alert and awake Abd: less distended; soft; RUQ tenderness with palpation Results - Labs 05/06/18 11:45 05/09/18 05:45 Laboratory Results - last 24 hr 05/04/18 05/04/18 05/04/18 08:15 17:10 22:01 Urine Color Urine Clarity Urine pH Ur Specific [place] Urine Protein Urine Glucose (UA) Urine Ketones Urine Occult Blood Urine Nitrate Urine Bilirubin Urine Urobilinogen Ur Leukocyte Esterase Urine RBC Urine WBC Ur Squamous Epith Cells Micro UA Comment Ur Microscopic Review Urine Culture Comments Urine Eosinophils None seen Ur Random Creatinine Ur Random Sodium Stl C.difficile DNA Amp Negative St C. diff Tox Epid 027 Negative MONA Screen Neg 05/05/18 05/05/18 01:45 01:45 Urine Color Straw Urine Clarity Clear Urine pH 5.5 Ur Specific [place] 1.015 Urine Protein Negative Urine Glucose (UA) Negative Urine Ketones Negative Urine Occult Blood Negative Urine Nitrate Negative Urine Bilirubin Negative Urine Urobilinogen 0.2 Ur Leukocyte Esterase Trace H Urine RBC 0-3 Urine WBC 0-5 Ur Squamous Epith Cells 0-5 Micro UA Comment Culture not ind Ur Microscopic Review Microscopic reviewed Urine Culture Comments Culture not ind Urine Eosinophils Ur Random Creatinine 16 L Ur Random Sodium 129 Stl C.difficile DNA Amp St C. diff Tox Epid 027 MONA Screen - Imaging Imaging: ITS Impressions Hand X-Ray 04/28/18 14:51 CONCLUSION: Negative examination Abdomen/Pelvis CT 05/01/18 00:00 CONCLUSION: 1. Nonspecific, nonobstructive bowel gas pattern which may represent a mild ileus or gastroenteritis. 2. Apparent gallbladder wall thickening or pericholecystic fluid which may be due to ascites. 3. Anasarca and small amount of ascites. 4. Small bilateral pleural effusion. 5. Infiltrate in both lung bases. Abdomen Ultrasound 05/04/18 00:00 CONCLUSION: 1. No evidence of gallstones in the gallbladder. However, there is thickening of the gallbladder wall at 1 cm with a small amount of pericholecystic fluid. This can be seen with either acute or chronic acalculous cholecystitis. This needs to be correlated patient's physical and clinical exam as well as laboratory values. 2. There is some increased echogenicity of the liver parenchyma suggestive of some fatty infiltration. 3. There is a small amount of ascites in the abdomen. This is insufficient for paracentesis. 4. There is evidence of bilateral pleural effusions. 5. Mild hepatomegaly and splenomegaly. Assessment and Plan - Assessment (1) Abdominal pain Code(s): R10.9 - Unspecified abdominal pain Status: Acute Plan: 37 year old female hospitalized for LEFT hand abscess; now with RUQ abdominal pain; ascites; ARF -US to come start IV and to get labs -Await LFTs -If total bilirubin normal will order HIDA scan -Hemodialysis started today -Patient remains a poor surgical candidate -Discussed with MAURA Hutchinson I attempted to obtain blood by femoral stick and was unsuccessful last evening. Discussed plan with patient; doubt this is gallbladder related. Discussed with Dr. Casarez; will await dialysis for next day or so; nevertheless, she will be a poor operative candidate. Will follow The exam, history, and the medical decision-making described in the above note were completed with the assistance of the mid-level provider. I reviewed and agree with the findings presented. I attest that I had a [id number] encounter with the patient on the same day, and personally performed and documented my assessment and findings in the medical record.
[2018-05-05 19:33] LABS: Activated Partial Thrombo Time 28.5 sec (24.3-30.1); INR 1.1 Ratio; Prothrombin Time 11.4 sec (9.8-11.6)
[2018-05-05 19:54] LABS: Alanine Aminotransferase 93 U/L (10-53); Albumin 2.9 g/dL (3.4-5.0); Alkaline Phosphatase 156 U/L (45-117); Anion Gap 10 meq/L (5-15); Aspartate Aminotransferase 42 U/L (15-37); Blood Urea Nitrogen 17 mg/dL (7-18); Carbon Dioxide 25.1 meq/L (21.0-32.0); Chloride 107 meq/L (98-107); Glomerular Filtration Rate 11 mL/min (>89); Glucose,Random 159 mg/dL (74-106); Lipase 40 U/L (73-393); Magnesium 1.7 mg/dL (1.5-2.5); Potassium 3.5 meq/L (3.5-5.1); Sodium 142 meq/L (136-145); Total Protein 6.9 g/dL (6.4-8.2)
[2018-05-06] MEDS: Acetaminophen 325 MG Tablet PO PRN (01:28)
[2018-05-06] MEDS: Sod Chloride 0.9% Inj 1,000 ML IV.CONT SCH (06:12)
[2018-05-06] MEDS: Albumin Human 25% Inj 100 ML IV.SIG SCH ×2 (10:13→21:51)
[2018-05-06] MEDS: Cefepime Inj 500 MG in Sodium Chlor 0.9% Inj 100 ML IV.SIG SCH (10:17)
[2018-05-06] MEDS: Lactobacillus Acidophilus/L. Spores Tablet PO SCH ×3 (10:20→17:18)
[2018-05-06] MEDS: Azithromycin 250 MG Tablet PO SCH (10:20)
[2018-05-06] MEDS: Ferrous Sulfate 325 MG Tablet PO SCH (10:20)
[2018-05-06] MEDS: Sodium Chloride 0.9% 2 ML Flush BID IV.FLUSH SCH ×2 (10:20→20:38)
--- NOTE | 2018-05-06 10:27 | P.PN ---
Subjective Interval history: Follow-up left arm cellulitis/abscess s/p I&D/acute kidney injury/ May 05, 2018-patient seen and examined, complains currently of migraine headaches. Also reported abdominal distention pressure but no pain. Reported episode of emesis overnight. Spiking fevers. May 06, 2018-patient seen and examined, still spiking fevers; Had dialysis yesterday Physical Exam Vital signs: Vital Signs 05/05/18 12:00 05/05/18 13:32 05/05/18 17:39 Temperature 99.9 F H Pulse Rate 83 88 Respiratory Rate 20 18 18 Blood Pressure 144/87 H 126/88 Pulse Oximetry 90 L 05/05/18 17:56 05/05/18 18:00 05/05/18 20:00 Temperature 98.9 F Pulse Rate 94 H Respiratory Rate 18 20 Blood Pressure 132/69 Pulse Oximetry 96 92 L 05/05/18 22:00 05/06/18 00:00 05/06/18 04:00 Temperature 99.3 F 101.5 F H 97.9 F Pulse Rate 80 95 H Respiratory Rate 18 18 Blood Pressure 120/71 131/76 Pulse Oximetry 92 L 94 L 05/06/18 07:22 05/06/18 08:00 Temperature 98.8 F Pulse Rate 76 Respiratory Rate 20 Blood Pressure 137/87 Pulse Oximetry 94 L 91 L Intake & Output 05/05/18 05/06/18 05/06/18 18:59 06:59 18:59 Intake Total 1421 / 1421 2100 / 2100 Output Total 4050 / 4050 400 / 400 Balance -2629 / -2629 1700 / 1700 Weight 65 kg Intake: IV 1200 / 1200 2100 / 2100 NS Inj 1,000 ML @ 100 mls/hr IV 1000 / 1000 2000 / 2000 .CONT .Q10H DELL Rx#:[id number] Flexbumin 25% Inj 100 ML @ 60 100 / 100 100 / 100 mls/hr IV.SIG Q12H DELL Rx#: [id number] Maxipime Inj 500 MG In NS Inj 100 / 100 100 ML @ 200 mls/hr IV.SIG DAILY@0800 DELL Rx#:[id number] Oral 221 / 221 0 / 0 Oral Supplement 0 / 0 Output: Urine 2550 / 2550 400 / 400 Hemodialysis Amount 1500 / 1500 Other: Post Void Residual 400 Date of Last Bowel Movement 05/05/18 Narrative: GENERAL: NAD SKIN: Warm and dry. dressing over left hand HEAD: Normocephalic. EYES: No scleral icterus. No injection or drainage. NECK: Supple, trachea midline. No JVD or lymphadenopathy. Vas cath line in place CARDIOVASCULAR: Regular rate and rhythm without murmurs, gallops, or rubs. RESPIRATORY: Breath sounds equal bilaterally. No accessory muscle use. GASTROINTESTINAL: Abdomen soft, non-tender, nondistended. MUSCULOSKELETAL: No cyanosis, or edema. BACK: Nontender without obvious deformity. No CVA tenderness. Results - Labs CBC & Chem 7: 05/03/18 05:43 05/05/18 19:00 Laboratory Results - last 24 hr 05/04/18 05/05/18 05/05/18 08:15 01:45 19:00 PT INR APTT Sodium 142 Potassium 3.5 Chloride 107 D Carbon Dioxide 25.1 Anion Gap 10 BUN 17 Creatinine 4.40 H Estimated GFR 11 L Random Glucose 159 H Calcium 8.0 L Magnesium 1.7 Total Bilirubin 0.4 AST 42 H ALT 93 H Alkaline Phosphatase 156 H Total Protein 6.9 D Albumin 2.9 L Lipase 40 L Ur Random Creatinine 16 L MONA Screen Neg 05/05/18 19:00 PT 11.4 INR 1.1 APTT 28.5 Sodium Potassium Chloride Carbon Dioxide Anion Gap BUN Creatinine Estimated GFR Random Glucose Calcium Magnesium Total Bilirubin AST ALT Alkaline Phosphatase Total Protein Albumin Lipase Ur Random Creatinine MONA Screen Microbiology 05/04/18 22:30 Sputum - Expectorated Sputum Gram Stain - Final 05/03/18 12:00 Clean Catch Urine Urine Culture - Final No growth in 48 hours 05/01/18 20:35 Blood - Peripheral Aerobic Blood Culture - Preliminary No growth in 4 days 05/01/18 20:35 Blood - Peripheral Anaerobic Blood Culture - Preliminary No growth in 4 days 05/01/18 20:30 Blood - Peripheral Aerobic Blood Culture - Preliminary No growth in 4 days 05/01/18 20:30 Blood - Peripheral Anaerobic Blood Culture - Preliminary No growth in 4 days - Procedures none Assessment and Plan - Assessment (1) Abscess of thumb, left Code(s): L02.512 - Cutaneous abscess of left hand Status: Acute - Plan 37-year-old female with Acute kidney injury ATN versus interstitial nephritis Appreciate input from nephrology Secondary to worsening renal indices, Vas-Cath placed yesterday and hemodialysis started May 05, 2018 Continue to monitor BUN and creatinine, and avoid all nephrotoxic drug Vancomycin currently on hold Unspecified abdominal pain Abdominal ultrasound noted Appreciate input from general surgery pending HIDA scan However per Gen surgery , patient is currently a poor surgical candidate C. difficile PCR negative Hospital-acquired pneumonia Currently on cefepime, p.o. azithromycin. Vancomycin on hold secondary to worsening renal function Blood culture negative to date Will consult infectious disease specialist secondary to recurrent febrile episode Left hand cellulitis/Abscess Status post I&D by hand surgery Culture positive for MRSA Previously on vancomycin, however secondary to worsening renal function this medication is on hold May consider Zyvox Ascites with abnormal liver function tests hepatitis C positive Continue with Lasix Will need outpatient follow-up with Hepatology Ileus-resolved Will discontinue morphine IV as needed Previous history of IVDU Extensively counseled against History of iron deficiency anemia Currently on iron sulfate DVT prophylaxis with SCD
[2018-05-06 12:24] LABS: Baso % (Auto) 0.7 % (0.0-2.0); Eos # (Auto) 0.2 th/mm3 (0.0-0.4); Eos % (Auto) 2.6 % (0.0-4.0); Hematocrit 27.8 % (35.0-46.0); Hemoglobin 9.2 gm/dL (11.6-15.3); Lymph # (Auto) 1.6 th/mm3 (1.0-4.8); Lymph % (Auto) 26.2 % (9.0-44.0); Mean Corpuscular HGB Conc 33.1 % (32.0-36.0); Mean Corpuscular Hemoglobin 30.1 pg (27.0-34.0); Mean Platelet Volume 8.2 fL (7.0-11.0); Mono # (Auto) 0.7 th/mm3 (0.0-0.9); Mono % (Auto) 10.7 % (0.0-8.0); Neut # (Auto) 3.6 th/mm3 (1.8-7.7); Neut % (Auto) 59.8 % (16.0-70.0); Platelet Count 141 th/mm3 (150-450); Red Blood Count 3.05 mil/mm3 (4.00-5.30); Red Cell Distribution Width 13.9 % (11.6-17.2); White Blood Count 6.1 th/mm3 (4.0-11.0)
[2018-05-06 12:41] LABS: Chloride 106 meq/L (98-107); Potassium 3.5 meq/L (3.5-5.1); Sodium 142 meq/L (136-145)
[2018-05-06 12:44] LABS: Calcium 8.6 mg/dL (8.5-10.1)
[2018-05-06 12:45] LABS: Albumin 3.3 g/dL (3.4-5.0); Anion Gap 10 meq/L (5-15); Blood Urea Nitrogen 17 mg/dL (7-18); Carbon Dioxide 26.3 meq/L (21.0-32.0); Glucose,Random 93 mg/dL (74-106)
[2018-05-06 12:47] LABS: Alanine Aminotransferase 71 U/L (10-53)
[2018-05-06 12:48] LABS: Aspartate Aminotransferase 31 U/L (15-37); Glomerular Filtration Rate 12 mL/min (>89)
[2018-05-06 12:50] LABS: Alkaline Phosphatase 129 U/L (45-117)
[2018-05-06] MEDS ORDERED: Sincalide Inj 5 MCG Vial IV.PUSH ONE (12:59)
--- NOTE | 2018-05-06 13:43 | NM ---
EXAM DATE: 05/06/2018 11:35 AM EDT AGE/SEX: 37 years / Female INDICATIONS: Right upper quadrant pain for one week. CLINICAL DATA: This is the patient's initial encounter. Patient reports that signs and symptoms have been present for 1 week and indicates a pain score of 7/10. MEDICAL/SURGICAL HISTORY: None. Tonsillectomy. COMPARISON: [facility], CT ABDOMEN & PELVIS W/O CONTRAST, 05/01/2018. . No external comparison. DOSE: 4.2 mCi Tc-99m mebrofenin i.v. Medication: 1.3 mcg Cholecystokinin IV Similar symptomatic response Cholecystokinin was administered by slow infusion over 8 minutes beginning at 60 min. min utes. TECHNIQUE: Following the intravenous administration of radiotracer, dynamic sequential images were pe rformed with continuous acquisition. Time-activity curves were generated. FINDINGS: Hepatic Kinetics: There is prompt uptake of radiotracer in the liver. No focal defects are seen. Ther e is normal rate of washout from the hepatic parenchyma. Biliary Clearance: Activity is first seen in the extrahepatic biliary system at 10 minutes. There is normal excretion into the small bowel. Gallbladder: Activity is first seen in the gallbladder at 15 minutes. Post-CCK: After CCK administration, there is emptying of the gallbladder with a 25%% ejection fractio n. Common bile duct kinetics are normal and there is no evidence of biliary obstruction. Similar sym ptomatic response after cholecystokinin infusion. Biliary-Enteric Reflux: Present. CONCLUSION: 1. Normal gallbladder uptake. 2. Poor ejection fraction. Electronically signed by: Jarrett Johnson MD 05/06/2018 1:41 PM EDT
--- NOTE | 2018-05-06 17:09 | P.PNGS ---
Subjective Interval history: Resting in bed; no issues Physical Exam Vital signs: Vital Signs 05/05/18 17:39 05/05/18 17:56 05/05/18 18:00 Temperature 98.9 F Pulse Rate 88 94 H Respiratory Rate 18 18 20 Blood Pressure 126/88 132/69 Pulse Oximetry 96 05/05/18 20:00 05/05/18 22:00 05/06/18 00:00 Temperature 99.3 F 101.5 F H Pulse Rate 80 95 H Respiratory Rate 18 18 Blood Pressure 120/71 131/76 Pulse Oximetry 92 L 92 L 94 L 05/06/18 04:00 05/06/18 07:22 05/06/18 08:00 Temperature 97.9 F 98.8 F Pulse Rate 76 Respiratory Rate 20 Blood Pressure 137/87 Pulse Oximetry 94 L 91 L 05/06/18 12:00 05/06/18 16:00 Temperature 98.9 F 98.7 F Pulse Rate 70 73 Respiratory Rate 20 20 Blood Pressure 153/97 H 139/87 Pulse Oximetry 94 L 92 L Intake & Output 05/05/18 05/06/18 05/06/18 18:59 06:59 18:59 Intake Total 1421 / 1421 2100 / 2100 300 / 300 Output Total 4050 / 4050 400 / 400 Balance -2629 / -2629 1700 / 1700 300 / 300 Weight 65 kg Intake: IV 1200 / 1200 2100 / 2100 300 / 300 NS Inj 1,000 ML @ 100 mls/hr IV 1000 / 1000 2000 / 2000 200 / 200 .CONT .Q10H [facility] Rx#:[id number] Flexbumin 25% Inj 100 ML @ 60 100 / 100 100 / 100 mls/hr IV.SIG Q12H [facility] Rx#: [id number] Maxipime Inj 500 MG In NS Inj 100 / 100 100 / 100 100 ML @ 200 mls/hr IV.SIG DAILY@0800 [facility] Rx#:[id number] Oral 221 / 221 0 / 0 Oral Supplement 0 / 0 Output: Urine 2550 / 2550 400 / 400 Hemodialysis Amount 1500 / 1500 Other: Post Void Residual 400 Date of Last Bowel Movement 05/05/18 Narrative: Alert and awake Abd: less distention; still with mild RUQ tenderness with palpation Results - Labs 05/06/18 11:45 05/09/18 05:45 Laboratory Results - last 24 hr 05/05/18 05/05/18 05/06/18 19:00 19:00 11:45 CBC w Diff WBC RBC Hgb Hct MCV MCH MCHC RDW Plt Count MPV Neut % (Auto) Lymph % (Auto) [place] % (Auto) Eos % (Auto) Baso % (Auto) Neut # (Auto) Lymph # (Auto) [place] # (Auto) Eos # (Auto) Baso # (Auto) WBC Differential Differential Comment PT 11.4 INR 1.1 APTT 28.5 Sodium 142 Potassium 3.5 Chloride 107 D Carbon Dioxide 25.1 Anion Gap 10 BUN 17 Creatinine 4.40 H Estimated GFR 11 L Random Glucose 159 H Calcium 8.0 L Magnesium 1.7 Total Bilirubin 0.4 AST 42 H ALT 93 H Alkaline Phosphatase 156 H Total Protein 6.9 D Albumin 2.9 L Lipase 40 L Random Vancomycin 27.0 05/06/18 05/06/18 11:45 11:45 CBC w Diff Auto diff final WBC 6.1 RBC 3.05 L Hgb 9.2 L Hct 27.8 L MCV 91.0 MCH 30.1 MCHC 33.1 RDW 13.9 Plt Count 141 L MPV 8.2 Neut % (Auto) 59.8 Lymph % (Auto) 26.2 [place] % (Auto) 10.7 H Eos % (Auto) 2.6 Baso % (Auto) 0.7 Neut # (Auto) 3.6 Lymph # (Auto) 1.6 [place] # (Auto) 0.7 Eos # (Auto) 0.2 Baso # (Auto) 0.0 WBC Differential . Differential Comment . PT INR APTT Sodium 142 Potassium 3.5 Chloride 106 Carbon Dioxide 26.3 Anion Gap 10 BUN 17 Creatinine 4.30 H Estimated GFR 12 L Random Glucose 93 Calcium 8.6 Magnesium Total Bilirubin 0.3 AST 31 ALT 71 H Alkaline Phosphatase 129 H Total Protein 7.0 Albumin 3.3 L Lipase Random Vancomycin - Imaging Imaging: ITS Impressions Hand X-Ray 04/28/18 14:51 CONCLUSION: Negative examination Abdomen/Pelvis CT 05/01/18 00:00 CONCLUSION: 1. Nonspecific, nonobstructive bowel gas pattern which may represent a mild ileus or gastroenteritis. 2. Apparent gallbladder wall thickening or pericholecystic fluid which may be due to ascites. 3. Anasarca and small amount of ascites. 4. Small bilateral pleural effusion. 5. Infiltrate in both lung bases. Abdomen Ultrasound 05/04/18 00:00 CONCLUSION: 1. No evidence of gallstones in the gallbladder. However, there is thickening of the gallbladder wall at 1 cm with a small amount of pericholecystic fluid. This can be seen with either acute or chronic acalculous cholecystitis. This needs to be correlated patient's physical and clinical exam as well as laboratory values. 2. There is some increased echogenicity of the liver parenchyma suggestive of some fatty infiltration. 3. There is a small amount of ascites in the abdomen. This is insufficient for paracentesis. 4. There is evidence of bilateral pleural effusions. 5. Mild hepatomegaly and splenomegaly. Bile Acid Absorption NM 05/06/18 00:00 CONCLUSION: 1. Normal gallbladder uptake. 2. Poor ejection fraction. Assessment and Plan - Assessment (1) Abdominal pain Code(s): R10.9 - Unspecified abdominal pain Status: Acute Plan: 37 year old female hospitalized for LEFT hand abscess; now with RUQ abdominal pain; ascites; ARF -HIDA scan not consistent with cholecystitis -Serology + hepatitis C -No surgical intervention needed -GS will sign off As above Needs medical management optimization; no surgery needed at this time. Will see as needed. The exam, history, and the medical decision-making described in the above note were completed with the assistance of the mid-level provider. I reviewed and agree with the findings presented. I attest that I had a [id number] encounter with the patient on the same day, and personally performed and documented my assessment and findings in the medical record.
--- NOTE | 2018-05-06 18:04 | P.CONID ---
History of Present Illness Service: Infectious Disease4 Consult date: 05/06/18 Requesting Physician: Jarrett Adair Reason for Consult: Fever Primary Care Provider: No Primary Care Physician Chief Complaint: Left hand swelling History of Present Illness: 37/F who says she has a h/o Lupus ?? and renal failure in 2013- h/o cocaine use - denies IVDU - came in because of left hand/ thumb swelling. Had a abscess which was drained and grew MRSA - was on IV Vancomycin and went into renal failure so now with Vascath and Picc line . Also abdominal pain and distension so surgery is following.Has been having intermittent fevers . Also being treated for possible pneumonia Review of Systems Constitutional: Reports fever(s), Denies headache(s) Eyes: Denies blurry vision, Denies floaters Ears, Nose, Mouth, and Throat: Denies hearing loss, Denies mouth pain, Denies nasal congestion, Denies post nasal drip, Denies sinus pressure, Denies throat swelling Cardiovascular: Denies chest pain, Denies fast heart rate Respiratory: Reports chest congestion, Reports cough, Denies change in phlegm color, Denies pain on inspiration Gastrointestinal: Reports abdominal pain, Denies change in bowel habits, Denies pain with swallowing, Denies vomiting blood Genitourinary: Denies urinary incontinence, Denies urinary urgency, Denies vaginal discharge Musculoskeletal: Reports joint swelling, Denies abnormal walking, Denies back pain Skin/Breast: Denies acne, Denies changing lesions Neurologic: Denies abnormal movements, Denies abnormal speech, Denies lack of coordination PMFSH - History History Provided By: Patient - Medical History Medical History: Medical History (Last Reviewed 05/06/18 @ 17:59 by Melyssa Muhammad MD) Rheumatoid arthritis (Acute) Fibromyalgia (Acute) [place] teeth extracted - Surgical History Surgical History: Surgical History (Last Reviewed 05/06/18 @ 17:59 by Melyssa Muhammad MD) Hx of tonsillectomy (Acute) S/P laparoscopy - Family History Family History: Family History (Last Updated 05/03/18 @ 18:22 by Michell Casarez MD) Other Diabetes No pertinent family history - Tobacco History Second Hand Smoke Exposure: Yes Tobacco Use In Past 30 Days: Yes Smoking Status: Current every day smoker Tobacco Type: Cigarettes - Alcohol History How Often Do You Have a Drink Containing Alcohol: Never - Substance Use History Substance History: Past History - Travel History Recent Travel in the [place] Within the Last 8 Weeks: No Recent Travel Out of the Country Within the Last 8 Weeks: No - Immunization History Tetanus Immunization: >5 Years Hx Influenza Vaccine This Season: No Medications and Allergies Active Medications: Active Medications Acetaminophen (Tylenol) 650 mg PO Q4H PRN PRN Reason: Temp > 100.4 Last Admin: 05/06/18 01:28 Dose: 650 mg Acetaminophen (Tylenol) 650 mg PO UNSCH PRN PRN Reason: SEE LABEL COMMENTS Albuterol (Duoneb Neb (Prn)) 1 ampul NEB Q2HR NEB PRN PRN Reason: SHORTNESS OF BREATH/WHEEZING Azithromycin (Zithromax) 250 mg PO DAILY [facility] Stop: 05/07/18 08:59 Last Admin: 05/06/18 10:20 Dose: 250 mg Bisacodyl (Dulcolax Supp) 10 mg RECTAL DAILY PRN PRN Reason: SEVERE CONSITIPATION Clonidine HCl (Catapres) 0.1 mg PO UNSCH PRN PRN Reason: SEE LABEL COMMENTS Diphenhydramine HCl (Benadryl) 25 mg PO UNSCH PRN PRN Reason: SEE LABEL COMMENTS Epoetin Cj (Epogen Inj) 4,000 unit IV.PUSH UNSCH PRN PRN Reason: SEE LABEL COMMENTS Ferrous Sulfate (Ferosul) 325 mg PO DAILY [facility] Last Admin: 05/06/18 10:20 Dose: 325 mg Furosemide (Lasix Inj) 40 mg IV.PUSH BID@0900,1800 [facility] Last Admin: 05/06/18 17:17 Dose: 40 mg Gelatin (Gelfoam 12 Mm/7 Mm Topical) 1 foam TOPICAL PRN PRN PRN Reason: help stop bleeding from site Gentamicin Sulfate (Gentamicin Inj) 20 mg OTHER WITH DIALYSIS PRN PRN Reason: Dwell Gentamycin Lock Heparin Sodium (Porcine) (Heparin Inj) 8,000 units OTHER WITH DIALYSIS PRN PRN Reason: for machine prime Heparin Sodium (Porcine) (Heparin Inj) 1,000 units OTHER WITH DIALYSIS PRN PRN Reason: Dwell Heparin to Fill Catheter Heparin Sodium (Porcine) (Heparin Central Flush) 0 unit IV.FLUSH DAILY PRN PRN Reason: SEE DOSE INSTRUCTIONS Cefepime HCl 500 mg/ Sodium (Chloride) 100 mls @ 200 mls/hr IV.SIG DAILY@0800 [facility] Last Infusion: 05/06/18 11:08 Dose: Infused Albumin Human (Flexbumin 25% Inj) 100 mls @ 60 mls/hr IV.SIG Q12H [facility] Last Infusion: 05/06/18 14:30 Dose: Infused Albumin Human (Flexbumin 25% Inj) 100 mls @ 60 mls/hr IV.SIG WITH DIALYSIS PRN PRN Reason: hypotension / volume replace Sodium Chloride (Ns Inj) 1,000 mls @ 0 mls/hr OTHER .Q0M PRN PRN Reason: for prime and rinse back Sodium Chloride (Ns Inj) 1,000 mls @ 200 mls/hr OTHER .Q5H PRN PRN Reason: for dialyzer flush PRN Sodium Chloride (Ns Inj) 1,000 mls @ 0 mls/hr IV.CONT .Q0M PRN PRN Reason: hypotension / volume replace Lactobacillus Acidophilus (Lactinex) 1 tab PO TID [facility] Last Admin: 05/06/18 17:18 Dose: 1 tab Lactulose (Lactulose Liq) 30 ml PO DAILY PRN PRN Reason: SEVERE CONSITIPATION Linezolid (Zyvox) 600 mg PO Q12HR [facility] Mannitol (Mannitol Inj) 12.5 gm IV.PUSH UNSCH PRN PRN Reason: hypotension / volume replace Naloxone HCl (Narcan Inj) 0.4 mg IV.PUSH UNSCH PRN PRN Reason: SEE LABEL COMMENTS Nitroglycerin (Nitrostat Sl) 0.4 mg SL Q5M PRN PRN Reason: CHEST PAIN Ondansetron HCl (Zofran Inj) 4 mg IV.PUSH Q6H PRN PRN Reason: NAUSEA OR VOMITING Last Admin: 05/06/18 17:18 Dose: 4 mg Ondansetron HCl (Zofran Inj) 4 mg IV.PUSH UNSCH PRN PRN Reason: NAUSEA OR VOMITING Oxycodone HCl (Roxicodone) 5 mg PO Q4H PRN PRN Reason: PAIN SCALE 3 TO 5 Last Admin: 05/01/18 21:50 Dose: 5 mg Oxycodone HCl (Roxicodone) 10 mg PO Q4H PRN PRN Reason: PAIN SCALE 6 TO 10 Last Admin: 05/06/18 13:33 Dose: 10 mg Pharmacy Profile Note (Vancomycin Consult Pharmacy) 1 each OTHER UNSCH PRN PRN Reason: Pharmacy to dose Sennosides (Senokot) 17.2 mg PO Q12H PRN PRN Reason: Moderate Constipation Silver Sulfadiazine (Silvadene 1% Cream (50 Gm)) 1 applicatio TOPICAL BID [facility] Last Admin: 05/06/18 10:21 Dose: 1 applicatio Sodium Chloride (Ns Flush) 2 ml IV.FLUSH BID [facility] Last Admin: 05/06/18 10:20 Dose: 2 ml Sodium Chloride (Ns Flush) 2 ml IV.FLUSH PRN PRN PRN Reason: FLUSH AFTER USING IV ACCESS Sodium Chloride (Ns Flush) 5 ml IV.FLUSH PRN PRN PRN Reason: flush each lumen during HD Sodium Chloride (Ns Flush) 0 ml IV.FLUSH PRN PRN PRN Reason: SEE DOSE INSTRUCTIONS Allergies Allergy/AdvReac Type Severity Reaction Status Date / Time No Known Allergies Allergy Verified 04/28/18 11:45 Exam Vital signs: Vital Signs 05/05/18 17:56 05/05/18 18:00 05/05/18 20:00 Temperature 98.9 F Pulse Rate 94 H Respiratory Rate 18 20 Blood Pressure 132/69 Pulse Oximetry 96 92 L 05/05/18 22:00 05/06/18 00:00 05/06/18 04:00 Temperature 99.3 F 101.5 F H 97.9 F Pulse Rate 80 95 H Respiratory Rate 18 18 Blood Pressure 120/71 131/76 Pulse Oximetry 92 L 94 L 05/06/18 07:22 05/06/18 08:00 05/06/18 12:00 Temperature 98.8 F 98.9 F Pulse Rate 76 70 Respiratory Rate 20 20 Blood Pressure 137/87 153/97 H Pulse Oximetry 94 L 91 L 94 L 05/06/18 16:00 Temperature 98.7 F Pulse Rate 73 Respiratory Rate 20 Blood Pressure 139/87 Pulse Oximetry 92 L Intake & Output 05/05/18 05/06/18 05/06/18 18:59 06:59 18:59 Intake Total 1421 / 1421 2099 / 2099 400 / 400 Output Total 4050 / 4050 400 / 400 Balance -2629 / -2629 1700 / 1700 400 / 400 Weight 65 kg Intake: IV 1200 / 1200 2099 / 2099 400 / 400 NS Inj 1,000 ML @ 100 mls/hr IV 1000 / 1000 2000 / 2000 200 / 200 .CONT .Q10H [facility] Rx#:[id number] Flexbumin 25% Inj 100 ML @ 60 100 / 100 100 / 100 100 / 100 mls/hr IV.SIG Q12H [facility] Rx#: [id number] Maxipime Inj 500 MG In NS Inj 100 / 100 100 / 100 100 ML @ 200 mls/hr IV.SIG DAILY@0800 [facility] Rx#:[id number] Oral 221 / 221 0 / 0 Oral Supplement 0 / 0 Output: Urine 2550 / 2550 400 / 400 Hemodialysis Amount 1500 / 1500 Other: Post Void Residual 400 Date of Last Bowel Movement 05/05/18 - Constitutional no acute distress, chronically ill appearing - Routine HEENT Exam Head: Present: normocephalic, atraumatic Eye: Present: PERRL ENT: Present: mucous membranes dry, nares patent. Absent: sinus tenderness - Routine Neck Exam Present: supple, full ROM, lymphadenopathy - Routine Chest/Breast/Axilla Exam Chest wall: Absent: tenderness, mass Axillae: Absent: lymphadenopathy - Routine Respiratory Exam Present: decreased breath sounds. Absent: accessory muscle use - Routine Cardiovascular Exam Present: S1, S2 - Routine Abdominal Exam Present: soft, normoactive bowel sounds. Absent: tenderness, distended - Routine Extremities Exam Absent: cyanosis, clubbing, edema - Routine Skin Exam Present: erythema (near left thumb - seems improved). Absent: cyanosis - Routine Neurological Exam Present: alert, oriented X3. Absent: sensory deficit, motor deficit Results - Labs CBC & Chem 7: 05/06/18 11:45 05/06/18 11:45 Labs: Laboratory Results - last 24 hr 05/05/18 05/05/18 05/06/18 19:00 19:00 11:45 CBC w Diff WBC RBC Hgb Hct MCV MCH MCHC RDW Plt Count MPV Neut % (Auto) Lymph % (Auto) [place] % (Auto) Eos % (Auto) Baso % (Auto) Neut # (Auto) Lymph # (Auto) [place] # (Auto) Eos # (Auto) Baso # (Auto) WBC Differential Differential Comment PT 11.4 INR 1.1 APTT 28.5 Sodium 142 Potassium 3.5 Chloride 107 D Carbon Dioxide 25.1 Anion Gap 10 BUN 17 Creatinine 4.40 H Estimated GFR 11 L Random Glucose 159 H Calcium 8.0 L Magnesium 1.7 Total Bilirubin 0.4 AST 42 H ALT 93 H Alkaline Phosphatase 156 H Total Protein 6.9 D Albumin 2.9 L Lipase 40 L Random Vancomycin 27.0 05/06/18 05/06/18 11:45 11:45 CBC w Diff Auto diff final WBC 6.1 RBC 3.05 L Hgb 9.2 L Hct 27.8 L MCV 91.0 MCH 30.1 MCHC 33.1 RDW 13.9 Plt Count 141 L MPV 8.2 Neut % (Auto) 59.8 Lymph % (Auto) 26.2 [place] % (Auto) 10.7 H Eos % (Auto) 2.6 Baso % (Auto) 0.7 Neut # (Auto) 3.6 Lymph # (Auto) 1.6 [place] # (Auto) 0.7 Eos # (Auto) 0.2 Baso # (Auto) 0.0 WBC Differential . Differential Comment . PT INR APTT Sodium 142 Potassium 3.5 Chloride 106 Carbon Dioxide 26.3 Anion Gap 10 BUN 17 Creatinine 4.30 H Estimated GFR 12 L Random Glucose 93 Calcium 8.6 Magnesium Total Bilirubin 0.3 AST 31 ALT 71 H Alkaline Phosphatase 129 H Total Protein 7.0 Albumin 3.3 L Lipase Random Vancomycin - Imaging Impressions Bile Acid Absorption NM 05/06/18 00:00 CONCLUSION: 1. Normal gallbladder uptake. 2. Poor ejection fraction. Assessment and Plan (1) Fever Status: Acute Code(s): R50.9 - Fever, unspecified (2) Abscess of thumb, left Status: Acute Code(s): L02.512 - Cutaneous abscess of left hand (3) Acute renal failure Status: Acute Code(s): N17.9 - Acute kidney failure, unspecified - Plan Re check Blood cultures Check Rapid Flu test Continue Cefepime ad Azithromycin Start Zyvox 600 mg po bid
--- NOTE | 2018-05-06 18:36 | P.PNNP ---
Subjective Interval history: Patient has increased urine output decreasing abdominal distention Physical Exam Vital signs: Vital Signs 05/05/18 20:00 05/05/18 22:00 05/06/18 00:00 Temperature 99.3 F 101.5 F H Pulse Rate 80 95 H Respiratory Rate 18 18 Blood Pressure 120/71 131/76 Pulse Oximetry 92 L 92 L 94 L 05/06/18 04:00 05/06/18 07:22 05/06/18 08:00 Temperature 97.9 F 98.8 F Pulse Rate 76 Respiratory Rate 20 Blood Pressure 137/87 Pulse Oximetry 94 L 91 L 05/06/18 12:00 05/06/18 16:00 Temperature 98.9 F 98.7 F Pulse Rate 70 73 Respiratory Rate 20 20 Blood Pressure 153/97 H 139/87 Pulse Oximetry 94 L 92 L Intake & Output 05/05/18 05/06/18 05/06/18 18:59 06:59 18:59 Intake Total 1421 / 1421 2100 / 2100 400 / 400 Output Total 4050 / 4050 400 / 400 Balance -2629 / -2629 1700 / 1700 400 / 400 Weight 65 kg Intake: IV 1200 / 1200 2100 / 2100 400 / 400 NS Inj 1,000 ML @ 100 mls/hr IV 1000 / 1000 2000 / 2000 200 / 200 .CONT .Q10H [facility] Rx#:[id number] Flexbumin 25% Inj 100 ML @ 60 100 / 100 100 / 100 100 / 100 mls/hr IV.SIG Q12H [facility] Rx#: [id number] Maxipime Inj 500 MG In NS Inj 100 / 100 100 / 100 100 ML @ 200 mls/hr IV.SIG DAILY@0800 [facility] Rx#:[id number] Oral 221 / 221 0 / 0 Oral Supplement 0 / 0 Output: Urine 2550 / 2550 400 / 400 Hemodialysis Amount 1500 / 1500 Other: Post Void Residual 400 Date of Last Bowel Movement 05/05/18 Narrative: Alert and awake Abd: less distention; still with mild RUQ tenderness with palpation Assessment and Plan - Assessment (1) Acute renal failure Code(s): N17.9 - Acute kidney failure, unspecified Status: Acute (2) Abscess of thumb, left Code(s): L02.512 - Cutaneous abscess of left hand Status: Acute (3) Rheumatoid arthritis Code(s): M06.9 - Rheumatoid arthritis, unspecified Status: Acute (4) Fibromyalgia Code(s): M79.7 - Fibromyalgia Status: Acute - Plan Patient has history of rheumatoid arthritis, recently had an infection with MRSA use vancomycin, Potentially ATN urine output 2.9 L Responding to Lasix cut back the dose to 20 mg every 12 hourly continue with albumin She is likely having ATN from vancomycin Monitor labs and hemodialysis may not be needed if creatinine continues to decline I told her she is in acute renal failure there is a good potential of recovery
--- NOTE | 2018-05-06 18:51 | XR ---
EXAM DATE: 05/06/2018 12:00 AM EDT AGE/SEX: 37 years / Female INDICATIONS: Chest pain, fever, and shortness of breath. CLINICAL DATA: This is the patient's initial encounter. Patient reports that signs and symptoms have been present for 1 day and indicates a pain score of 5/10. MEDICAL/SURGICAL HISTORY: . Rheumatoid arthritis. Hepatitis C. MRSA. Fibromyalgia. Lupus. . To nsillectomy. [place] teeth extracted. COMPARISON: No prior exams available for comparison. FINDINGS: There is a right internal jugular central line placed with the tip overlying the right atrium. A pneu mothorax is not seen. There is increased density seen at the bases bilaterally with silhouetting the heart borders and diaphragms. There is diffuse spondylosis of interstitium. Some this may be secondar y to the expiratory nature of the study. CONCLUSION: Right internal jugular central line in good position. Bibasilar areas of consolidation or atelectasis. Some degree of effusions at the bases could be consi dered. A pneumothorax is not seen. Electronically signed by: José Marlow MD 05/06/2018 6:50 PM EDT
--- NOTE | 2018-05-06 20:04 | IR ---
EXAM DATE: 05/05/2018 8:00 AM EDT AGE/SEX: 37 years / Female INDICATIONS: Patient presents with Cutaneous abscess left hand and Acute Kidney Injury in need of a Temporary Central Venous Catheter for Dialysis. CLINICAL DATA: This is the patient's initial encounter. Patient reports that signs and symptoms have been present for 4 - 6 days and indicates a pain score of 5/10. MEDICAL/SURGICAL HISTORY: . Rheumatoid Arthritis, Fibromyalgia. Tonsillectomy. COMPARISON: No prior exams available for comparison. FLUORO TIME (min): 0.25 IMAGE SERIES: 2 ACCESS SITE: Right internal jugular vein DEVICE(S): 14 [place] double lumen 15cm Schon catheter . . PROCEDURE : 1. Ultrasound guided venipuncture. 2. Fluoroscopic guidance. 3. Central line placement. The risks, benefits and alternatives to the procedure were explained and verbal and written consent w as obtained. The site was prepped in sterile fashion. Full sterile technique was used, including ca p, mask, sterile gloves and gown and a large sterile sheet. Hand hygiene and 2% chlorhexidine prep w as utilized per protocol for cutaneous antisepsis with appropriate dry time for site. Sterile gel an d sterile probe cover were utilized for ultrasound guidance. The skin and subcutaneous tissues were infiltrated with local anesthetic solution. A suitable site a bell the vein was selected with ultrasound and fluoroscopic guidance. A small incision was made. Th e vein was accessed under direct ultrasound visualization using the micropuncture technique. The [place] ropuncture set was exchanged for a 0.035 wire. The tract was dilated. The catheter was advanced int o position under direct fluoroscopic visualization, and was advanced with the tip at the junction of the superior vena cava and rt atrium. The catheter was fixed in place with suture and a sterile dres sing was applied. The patient tolerated the procedure well and there were no complications. CONCLUSION: Uncomplicated ultrasound and fluoroscopic guided central venous dialysis catheter placement as above. Electronically signed by: José Mandujano MD 05/06/2018 8:03 PM EDT
[2018-05-06] MEDS: Linezolid 600 MG Tablet PO SCH (21:50)
[2018-05-07 07:47] LABS: Potassium 3.3 meq/L (3.5-5.1)
[2018-05-07 07:49] LABS: Calcium 8.3 mg/dL (8.5-10.1)
[2018-05-07 07:50] LABS: Carbon Dioxide 29.6 meq/L (21.0-32.0)
[2018-05-07] MEDS: Lactobacillus Acidophilus/L. Spores Tablet PO SCH ×3 (08:43→19:04)
[2018-05-07] MEDS: Linezolid 600 MG Tablet PO SCH ×2 (08:44→20:37)
[2018-05-07] MEDS: Cefepime Inj 500 MG in Sodium Chlor 0.9% Inj 100 ML IV.SIG SCH (08:44)
[2018-05-07] MEDS: Ferrous Sulfate 325 MG Tablet PO SCH (08:44)
[2018-05-07] MEDS: Albumin Human 25% Inj 100 ML IV.SIG SCH ×2 (08:45→20:38)
--- NOTE | 2018-05-07 11:07 | P.PN ---
Subjective Interval history: Follow-up left arm cellulitis/abscess s/p I&D/acute kidney injury/ May 05, 2018-patient seen and examined, complains currently of migraine headaches. Also reported abdominal distention pressure but no pain. Reported episode of emesis overnight. Spiking fevers. May 06, 2018-patient seen and examined, still spiking fevers; Had dialysis yesterday May 07, 2018-patient seen and examined, T-max 100.1 at 8 PM, currently afebrile. Denies any significant abdominal distention. No acute event overnight. Physical Exam Vital signs: Vital Signs 05/06/18 12:00 05/06/18 16:00 05/06/18 20:00 Temperature 98.9 F 98.7 F 100.1 F H Pulse Rate 70 73 72 Respiratory Rate 20 20 20 Blood Pressure 153/97 H 139/87 140/85 Pulse Oximetry 94 L 92 L 92 L 05/07/18 00:00 05/07/18 08:00 Temperature 99.1 F 98.9 F Pulse Rate 65 76 Respiratory Rate 20 16 Blood Pressure 139/81 134/89 Pulse Oximetry 93 L 93 L Intake & Output 05/06/18 05/07/18 05/07/18 18:59 06:59 18:59 Intake Total 875 / 875 400 / 400 Output Total 2650 / 2650 1350 / 1350 Balance -1775 / -1775 -950 / -950 Weight 64.1 kg Intake: IV 400 / 400 100 / 100 NS Inj 1,000 ML @ 100 mls/hr IV 200 / 200 .CONT .Q10H [facility] Rx#:[id number] Flexbumin 25% Inj 100 ML @ 60 100 / 100 100 / 100 mls/hr IV.SIG Q12H [facility] Rx#: [id number] Maxipime Inj 500 MG In NS Inj 100 / 100 100 ML @ 200 mls/hr IV.SIG DAILY@0800 [facility] Rx#:[id number] Oral 475 / 475 300 / 300 Output: Urine 2650 / 2650 1350 / 1350 Other: # Voids 1 Date of Last Bowel Movement 05/05/18 05/05/18 # Bowel Movements 0 Narrative: GENERAL: NAD SKIN: Warm and dry. HEAD: Normocephalic. EYES: No scleral icterus. No injection or drainage. NECK: Supple, trachea midline. No JVD or lymphadenopathy. CARDIOVASCULAR: Regular rate and rhythm without murmurs, gallops, or rubs. RESPIRATORY: Breath sounds equal bilaterally. No accessory muscle use. GASTROINTESTINAL: Abdomen soft, non-tender, nondistended. MUSCULOSKELETAL: No cyanosis, or edema. BACK: Nontender without obvious deformity. No CVA tenderness. Results - Labs CBC & Chem 7: 05/06/18 11:45 05/07/18 07:15 Laboratory Results - last 24 hr 05/06/18 05/06/18 05/06/18 11:45 11:45 11:45 CBC w Diff Auto diff final WBC 6.1 RBC 3.05 L Hgb 9.2 L Hct 27.8 L MCV 91.0 MCH 30.1 MCHC 33.1 RDW 13.9 Plt Count 141 L MPV 8.2 Neut % (Auto) 59.8 Lymph % (Auto) 26.2 Morrow % (Auto) 10.7 H Eos % (Auto) 2.6 Baso % (Auto) 0.7 Neut # (Auto) 3.6 Lymph # (Auto) 1.6 Morrow # (Auto) 0.7 Eos # (Auto) 0.2 Baso # (Auto) 0.0 WBC Differential . Differential Comment . Sodium 142 Potassium 3.5 Chloride 106 Carbon Dioxide 26.3 Anion Gap 10 BUN 17 Creatinine 4.30 H Estimated GFR 12 L Random Glucose 93 Calcium 8.6 Total Bilirubin 0.3 AST 31 ALT 71 H Alkaline Phosphatase 129 H Total Protein 7.0 Albumin 3.3 L Random Vancomycin 27.0 05/07/18 07:15 CBC w Diff WBC RBC Hgb Hct MCV MCH MCHC RDW Plt Count MPV Neut % (Auto) Lymph % (Auto) Morrow % (Auto) Eos % (Auto) Baso % (Auto) Neut # (Auto) Lymph # (Auto) Morrow # (Auto) Eos # (Auto) Baso # (Auto) WBC Differential Differential Comment Sodium 140 Potassium 3.3 L Chloride 102 Carbon Dioxide 29.6 Anion Gap 8 BUN 17 Creatinine 4.00 H Estimated GFR 13 L Random Glucose 95 Calcium 8.3 L Total Bilirubin AST ALT Alkaline Phosphatase Total Protein Albumin Random Vancomycin Microbiology 05/06/18 18:51 Nasal Wash Influenza Types A,B Antigen - Final Negative for FLU A and B antigen Infection due to influenza A or B cannot be ruled out since the antigen present in the sample may be below the detection limit of the test. 05/04/18 22:30 Sputum - Expectorated Sputum Gram Stain - Final 05/04/18 22:30 Sputum - Expectorated Sputum Sputum Culture - Preliminary Heavy growth normal respiratory tonya at 24 hours 05/01/18 20:35 Blood - Peripheral Aerobic Blood Culture - Final No growth in 5 days 05/01/18 20:35 Blood - Peripheral Anaerobic Blood Culture - Final No growth in 5 days 05/01/18 20:30 Blood - Peripheral Aerobic Blood Culture - Final No growth in 5 days 05/01/18 20:30 Blood - Peripheral Anaerobic Blood Culture - Final No growth in 5 days - Imaging Impressions Catheter Placement 05/05/18 08:00 CONCLUSION: Uncomplicated ultrasound and fluoroscopic guided central venous dialysis catheter placement as above. Bile Acid Absorption NM 05/06/18 00:00 CONCLUSION: 1. Normal gallbladder uptake. 2. Poor ejection fraction. Chest X-Ray 05/06/18 00:00 CONCLUSION: Right internal jugular central line in good position. Bibasilar areas of consolidation or atelectasis. Some degree of effusions at the bases could be considered. A pneumothorax is not seen. - Procedures none Assessment and Plan - Assessment (1) Abscess of thumb, left Code(s): L02.512 - Cutaneous abscess of left hand Status: Acute - Plan 37-year-old female with Acute kidney injury ATN versus interstitial nephritis Appreciate input from nephrology Secondary to worsening renal indices, Vas-Cath placed yesterday and hemodialysis started May 05, 2018 Continue to monitor BUN and creatinine, and avoid all nephrotoxic drug Vancomycin currently on hold Unspecified abdominal pain Abdominal ultrasound noted Appreciate input from general surgery pending HIDA scan However per Gen surgery , patient is currently a poor surgical candidate C. difficile PCR negative Hospital-acquired pneumonia Currently on cefepime, p.o. azithromycin. Vancomycin on hold secondary to worsening renal function Blood culture negative to date Appreciate input from infectious disease specialist Left hand cellulitis/Abscess Status post I&D by hand surgery Culture positive for MRSA Previously on vancomycin, however secondary to worsening renal function this medication is on hold Currently on Zyvox Appreciate input from infectious disease specialist Ascites with abnormal liver function tests hepatitis C positive Continue with Lasix Will need outpatient follow-up with Hepatology Ileus-resolved Previous history of IVDU Extensively counseled against History of iron deficiency anemia Currently on iron sulfate DVT prophylaxis with SCD
[2018-05-07] MEDS: Sodium Chloride 0.9% 2 ML Flush BID IV.FLUSH SCH ×2 (12:15→21:50)
--- NOTE | 2018-05-07 16:16 | P.PNNP ---
Subjective Interval history: Patient complain of pain otherwise edema is going down Physical Exam Vital signs: Vital Signs 05/06/18 20:00 05/07/18 00:00 05/07/18 08:00 Temperature 100.1 F H 99.1 F 98.9 F Pulse Rate 72 65 76 Respiratory Rate 20 20 16 Blood Pressure 140/85 139/81 134/89 Pulse Oximetry 92 L 93 L 93 L 05/07/18 12:00 05/07/18 12:14 05/07/18 14:46 Temperature 98.9 F Pulse Rate 68 Respiratory Rate 16 20 20 Blood Pressure 140/84 Pulse Oximetry 93 L Intake & Output 05/06/18 05/07/18 05/07/18 18:59 06:59 18:59 Intake Total 875 / 875 400 / 400 200 / 200 Output Total 2650 / 2650 1350 / 1350 Balance -1775 / -1775 -950 / -950 200 / 200 Weight 64.1 kg Intake: IV 400 / 400 100 / 100 200 / 200 NS Inj 1,000 ML @ 100 mls/hr IV 200 / 200 .CONT .Q10H [facility] Rx#:[id number] Flexbumin 25% Inj 100 ML @ 60 100 / 100 100 / 100 100 / 100 mls/hr IV.SIG Q12H [facility] Rx#: [id number] Maxipime Inj 500 MG In NS Inj 100 / 100 100 / 100 100 ML @ 200 mls/hr IV.SIG DAILY@0800 [facility] Rx#:[id number] Oral 475 / 475 300 / 300 Output: Urine 2650 / 2650 1350 / 1350 Other: # Voids 1 Date of Last Bowel Movement 05/05/18 05/05/18 # Bowel Movements 0 Narrative: GENERAL: NAD SKIN: Warm and dry. HEAD: Normocephalic. EYES: No scleral icterus. No injection or drainage. NECK: Supple, trachea midline. No JVD or lymphadenopathy. CARDIOVASCULAR: Regular rate and rhythm without murmurs, gallops, or rubs. RESPIRATORY: Breath sounds equal bilaterally. No accessory muscle use. GASTROINTESTINAL: Abdomen soft, non-tender, nondistended. MUSCULOSKELETAL: No cyanosis, or edema. BACK: Nontender without obvious deformity. No CVA tenderness. Assessment and Plan - Assessment (1) Acute renal failure Code(s): N17.9 - Acute kidney failure, unspecified Status: Acute (2) Abscess of thumb, left Code(s): L02.512 - Cutaneous abscess of left hand Status: Acute (3) Rheumatoid arthritis Code(s): M06.9 - Rheumatoid arthritis, unspecified Status: Acute (4) Fibromyalgia Code(s): M79.7 - Fibromyalgia Status: Acute - Plan Patient has history of rheumatoid arthritis, recently had an infection with MRSA use vancomycin, Potentially ATN urine output 2.9 L Responding to Lasix 20 mg every 12 hourly continue with albumin She is likely having ATN from vancomycin Monitor labs acute renal failure resolving replace potassium DC Vas-Cath as patient has passed 4 L of urine
[2018-05-07] MEDS: Acetaminophen 325 MG Tablet PO PRN (20:37)
[2018-05-08 07:53] LABS: Potassium 3.9 meq/L (3.5-5.1)
[2018-05-08 07:55] LABS: Calcium 8.2 mg/dL (8.5-10.1)
[2018-05-08 07:56] LABS: Carbon Dioxide 28.1 meq/L (21.0-32.0)
[2018-05-08] MEDS: Cefepime Inj 500 MG in Sodium Chlor 0.9% Inj 100 ML IV.SIG SCH (09:51)
[2018-05-08] MEDS: Ferrous Sulfate 325 MG Tablet PO SCH (09:52)
[2018-05-08] MEDS: Linezolid 600 MG Tablet PO SCH ×2 (09:52→21:52)
[2018-05-08] MEDS: Lactobacillus Acidophilus/L. Spores Tablet PO SCH ×3 (09:52→18:02)
[2018-05-08] MEDS: Sodium Chloride 0.9% 2 ML Flush BID IV.FLUSH SCH ×2 (10:02→21:52)
[2018-05-08] MEDS: Albumin Human 25% Inj 100 ML IV.SIG SCH ×2 (10:32→21:16)
--- NOTE | 2018-05-08 11:42 | P.PN ---
Subjective Interval history: Follow-up left arm cellulitis/abscess s/p I&D/acute kidney injury/ May 05, 2018-patient seen and examined, complains currently of migraine headaches. Also reported abdominal distention pressure but no pain. Reported episode of emesis overnight. Spiking fevers. May 06, 2018-patient seen and examined, still spiking fevers; Had dialysis yesterday May 07, 2018-patient seen and examined, T-max 100.1 at 8 PM, currently afebrile. Denies any significant abdominal distention. No acute event overnight. May 08, 2018-patient seen and examined, patient denies any urine output since she last went to bed last night. Currently afebrile. Complains of abdominal distention today but no nausea or vomiting Physical Exam Vital signs: Vital Signs 05/07/18 12:00 05/07/18 12:14 05/07/18 14:46 Temperature 98.9 F Pulse Rate 68 Respiratory Rate 16 20 20 Blood Pressure 140/84 Pulse Oximetry 93 L 05/07/18 16:00 05/07/18 20:00 05/07/18 23:50 Temperature 99.5 F 100.6 F H 98.7 F Pulse Rate 71 60 65 Respiratory Rate 18 16 16 Blood Pressure 150/92 H 145/90 H 148/65 H Pulse Oximetry 94 L 98 96 05/08/18 07:09 05/08/18 08:00 Temperature 100 F H Pulse Rate 67 Respiratory Rate 16 20 Blood Pressure 141/87 H Pulse Oximetry 92 L Intake & Output 05/07/18 05/08/18 05/08/18 18:59 06:59 18:59 Intake Total 1280 / 1280 350 / 350 100 / 100 Output Total 1250 / 1250 400 / 400 Balance 30 / 30 -50 / -50 100 / 100 Weight 64.5 kg Intake: IV 200 / 200 100 / 100 100 / 100 Flexbumin 25% Inj 100 ML @ 60 100 / 100 100 / 100 mls/hr IV.SIG Q12H [facility] Rx#: [id number] Maxipime Inj 500 MG In NS Inj 100 / 100 100 / 100 100 ML @ 200 mls/hr IV.SIG DAILY@0800 [facility] Rx#:[id number] Oral 1080 / 1080 250 / 250 Output: Urine 1250 / 1250 400 / 400 Other: Date of Last Bowel Movement 05/05/18 05/05/18 Narrative: GENERAL: NAD SKIN: Warm and dry. HEAD: Normocephalic. EYES: No scleral icterus. No injection or drainage. NECK: Supple, trachea midline. No JVD or lymphadenopathy. CARDIOVASCULAR: Regular rate and rhythm without murmurs, gallops, or rubs. RESPIRATORY: Breath sounds equal bilaterally. No accessory muscle use. GASTROINTESTINAL: Abdomen soft, non-tender, mildly distended. MUSCULOSKELETAL: No cyanosis, or edema. BACK: Nontender without obvious deformity. No CVA tenderness. Results - Labs CBC & Chem 7: 05/06/18 11:45 05/08/18 06:37 Laboratory Results - last 24 hr 05/08/18 06:37 Sodium 141 Potassium 3.9 Chloride 105 Carbon Dioxide 28.1 Anion Gap 8 BUN 22 H Creatinine 3.30 H Estimated GFR 16 L Random Glucose 109 H Calcium 8.2 L Microbiology 05/04/18 22:30 Sputum - Expectorated Sputum Gram Stain - Final 05/04/18 22:30 Sputum - Expectorated Sputum Sputum Culture - Final Heavy growth normal respiratory tonya - Procedures none Assessment and Plan - Assessment (1) Abscess of thumb, left Code(s): L02.512 - Cutaneous abscess of left hand Status: Acute - Plan 37-year-old female with Acute kidney injury ATN 2/2 Vancomycin Appreciate input from nephrology Secondary to worsening renal indices, hemodialysis started May 05, 2018; however patient had only 1 treatment. Renal indices improving Continue to monitor BUN and creatinine, and avoid all nephrotoxic drug Vancomycin d/steve Unspecified abdominal pain Abdominal ultrasound noted Appreciate input from general surgery HIDA scan with normal gallbladder uptake However per Gen surgery , patient is currently a poor surgical candidate C. difficile PCR negative Hospital-acquired pneumonia Currently on cefepime, p.o. azithromycin. Blood culture negative to date Appreciate input from infectious disease specialist Left hand cellulitis/Abscess Status post I&D by hand surgery Culture positive for MRSA Previously on vancomycin, however secondary to worsening renal function this medication was d/steve Currently on Zyvox Appreciate input from infectious disease specialist Ascites with abnormal liver function tests hepatitis C positive Continue with Lasix Will need outpatient follow-up with Hepatology Ileus-resolved Previous history of IVDU Extensively counseled against History of iron deficiency anemia Currently on iron sulfate DVT prophylaxis with SCD
[2018-05-09 06:29] LABS: Calcium 8.4 mg/dL (8.5-10.1); Carbon Dioxide 27.8 meq/L (21.0-32.0)
[2018-05-09 06:32] LABS: Potassium 4.7 meq/L (3.5-5.1)
[2018-05-09 07:52] LABS: Hepatitis C RNA (PCR) log IUs 6.23
--- NOTE | 2018-05-09 08:05 | P.PNNP ---
Subjective Interval history: This is a late netry, patient was seen on 05/08/18, alert, no complain. Physical Exam Vital signs: Vital Signs 05/08/18 11:00 05/08/18 12:00 05/08/18 14:54 Temperature 98.8 F Pulse Rate 64 Respiratory Rate 18 19 18 Blood Pressure 147/87 H Pulse Oximetry 95 05/08/18 16:00 05/08/18 18:32 05/08/18 20:00 Temperature 99.5 F 100.2 F H Pulse Rate 78 61 Respiratory Rate 21 18 18 Blood Pressure 150/90 H 147/82 H Pulse Oximetry 98 94 L 05/08/18 22:38 05/09/18 00:00 Temperature 99.2 F Pulse Rate 59 L Respiratory Rate 20 18 Blood Pressure 145/82 H Pulse Oximetry 97 Intake & Output 05/08/18 05/09/18 05/09/18 18:59 06:59 18:59 Intake Total 500 / 500 580 / 580 Output Total 900 / 900 1200 / 1200 Balance -400 / -400 -620 / -620 Weight 63.3 kg Intake: IV 200 / 200 100 / 100 Flexbumin 25% Inj 100 ML @ 60 100 / 100 100 / 100 mls/hr IV.SIG Q12H [facility] Rx#: [id number] Maxipime Inj 500 MG In NS Inj 100 / 100 100 ML @ 200 mls/hr IV.SIG DAILY@0800 [facility] Rx#:[id number] Oral 300 / 300 480 / 480 Output: Urine 900 / 900 1200 / 1200 Other: Date of Last Bowel Movement 05/08/18 Narrative: GENERAL: NAD SKIN: Warm and dry. HEAD: Atraumatic. Normocephalic. EYES: Pupils equal and round. No scleral icterus. No injection or drainage. ENT: No nasal bleeding or discharge. Mucous membranes pink and moist. NECK: Trachea midline. No JVD. CARDIOVASCULAR: Regular rate and rhythm. RESPIRATORY: No accessory muscle use. Clear to auscultation. Breath sounds equal bilaterally. GASTROINTESTINAL: Abdomen soft, non-tender, nondistended. Hepatic and splenic margins not palpable. MUSCULOSKELETAL: Extremities without clubbing, cyanosis, or edema. No obvious deformities. NEUROLOGICAL: Awake and alert. No obvious cranial nerve deficits. Motor grossly within normal limits. Five out of 5 muscle strength in the arms and legs. Normal speech. PSYCHIATRIC: Appropriate mood and affect; insight and judgment normal. Assessment and Plan - Assessment (1) Acute renal failure Code(s): N17.9 - Acute kidney failure, unspecified Status: Acute (2) Abscess of thumb, left Code(s): L02.512 - Cutaneous abscess of left hand Status: Acute (3) Rheumatoid arthritis Code(s): M06.9 - Rheumatoid arthritis, unspecified Status: Acute (4) Fibromyalgia Code(s): M79.7 - Fibromyalgia Status: Acute - Plan Patient has history of rheumatoid arthritis, recently had an infection with MRSA use vancomycin, Potentially ATN urine output is adequate. Responding to Lasix 20 mg every 12 hourly continue with albumin She is likely having ATN from vancomycin Creatinine continue to improve. Hold HD for now.
[2018-05-09] MEDS: Ferrous Sulfate 325 MG Tablet PO SCH (08:37)
[2018-05-09] MEDS: Linezolid 600 MG Tablet PO SCH ×2 (08:37→21:50)
[2018-05-09] MEDS: Lactobacillus Acidophilus/L. Spores Tablet PO SCH ×3 (08:37→18:07)
[2018-05-09] MEDS: Sodium Chloride 0.9% 2 ML Flush BID IV.FLUSH SCH ×2 (08:43→21:52)
[2018-05-09] MEDS: Cefepime Inj 500 MG in Sodium Chlor 0.9% Inj 100 ML IV.SIG SCH (09:39)
[2018-05-09] MEDS: Albumin Human 25% Inj 100 ML IV.SIG SCH ×2 (09:44→21:49)
--- NOTE | 2018-05-09 10:24 | P.PN ---
Subjective Interval history: Follow-up left arm cellulitis/abscess s/p I&D/acute kidney injury/ May 05, 2018-patient seen and examined, complains currently of migraine headaches. Also reported abdominal distention pressure but no pain. Reported episode of emesis overnight. Spiking fevers. May 06, 2018-patient seen and examined, still spiking fevers; Had dialysis yesterday May 07, 2018-patient seen and examined, T-max 100.1 at 8 PM, currently afebrile. Denies any significant abdominal distention. No acute event overnight. May 08, 2018-patient seen and examined, patient denies any urine output since she last went to bed last night. Currently afebrile. Complains of abdominal distention today but no nausea or vomiting May 09, 2018-patient seen and examined, still spiking fevers, states not feeling well today. good UOP. Renal indices improving Physical Exam Vital signs: Vital Signs 05/08/18 11:00 05/08/18 12:00 05/08/18 14:54 Temperature 98.8 F Pulse Rate 64 Respiratory Rate 18 19 18 Blood Pressure 147/87 H Pulse Oximetry 95 05/08/18 16:00 05/08/18 18:32 05/08/18 20:00 Temperature 99.5 F 100.2 F H Pulse Rate 78 61 Respiratory Rate 21 18 18 Blood Pressure 150/90 H 147/82 H Pulse Oximetry 98 94 L 05/08/18 22:38 05/09/18 00:00 05/09/18 08:00 Temperature 99.2 F 101.6 F H Pulse Rate 59 L 70 Respiratory Rate 20 18 20 Blood Pressure 145/82 H 153/92 H Pulse Oximetry 97 05/09/18 09:05 Temperature Pulse Rate Respiratory Rate 18 Blood Pressure Pulse Oximetry Intake & Output 05/08/18 05/09/18 05/09/18 18:59 06:59 18:59 Intake Total 500 / 500 580 / 580 Output Total 900 / 900 1200 / 1200 Balance -400 / -400 -620 / -620 Weight 63.3 kg Intake: IV 200 / 200 100 / 100 Flexbumin 25% Inj 100 ML @ 60 100 / 100 100 / 100 mls/hr IV.SIG Q12H [facility] Rx#: [id number] Maxipime Inj 500 MG In NS Inj 100 / 100 100 ML @ 200 mls/hr IV.SIG DAILY@0800 [facility] Rx#:[id number] Oral 300 / 300 480 / 480 Output: Urine 900 / 900 1200 / 1200 Other: Date of Last Bowel Movement 05/08/18 Narrative: GENERAL: NAD SKIN: Warm and dry. HEAD: Normocephalic. EYES: No scleral icterus. No injection or drainage. NECK: Supple, trachea midline. No JVD or lymphadenopathy. CARDIOVASCULAR: Regular rate and rhythm without murmurs, gallops, or rubs. RESPIRATORY: Breath sounds equal bilaterally. No accessory muscle use. GASTROINTESTINAL: Abdomen soft, non-tender, mildly distended. MUSCULOSKELETAL: No cyanosis, or edema. BACK: Nontender without obvious deformity. No CVA tenderness. Results - Labs CBC & Chem 7: 05/06/18 11:45 05/09/18 05:45 Laboratory Results - last 24 hr 05/05/18 05/09/18 19:00 05:45 Sodium 139 Potassium 4.7 D Chloride 105 Carbon Dioxide 27.8 Anion Gap 6 BUN 20 H Creatinine 2.70 H Estimated GFR 20 L Random Glucose 78 Calcium 8.4 L HCV RNA (PCR) IUs/ml [id number] H HCV RNA PCR log IUs/ml 6.23 H - Procedures none Assessment and Plan - Assessment (1) Abscess of thumb, left Code(s): L02.512 - Cutaneous abscess of left hand Status: Acute - Plan 37-year-old female with Acute kidney injury ATN 2/2 Vancomycin Appreciate input from nephrology Secondary to worsening renal indices, hemodialysis started May 05, 2018; however patient had only 1 treatment. Renal indices improving Continue to monitor BUN and creatinine, and avoid all nephrotoxic drug Vancomycin d/steve Unspecified abdominal pain Abdominal ultrasound noted Appreciate input from general surgery HIDA scan with normal gallbladder uptake However per Gen surgery , patient is currently a poor surgical candidate C. difficile PCR negative Hospital-acquired pneumonia Currently on cefepime, p.o. azithromycin. Blood culture negative to date Appreciate input from infectious disease specialist Left hand cellulitis/Abscess Status post I&D by hand surgery Culture positive for MRSA Previously on vancomycin, however secondary to worsening renal function this medication was d/steve Currently on Zyvox Appreciate input from infectious disease specialist Febrile episodes Repeat Blood culture and UA 05/09/18 Ascites with abnormal liver function tests hepatitis C positive Continue with Lasix Need outpatient follow-up with Hepatology Ileus-resolved Previous history of IVDU Extensively counseled against History of iron deficiency anemia Currently on iron sulfate DVT prophylaxis with SCD
--- NOTE | 2018-05-09 18:31 | P.PNID ---
Subjective Remarks: Continues to run fevers Some Chest congestion with cough Hand feels fine Antibiotics: Cefepime and Zyvox Lines: Left PICC line and RT IJ dialysis catheter Past Medical History: Past h/o renal failure Allergies/Adverse Reactions: Allergies No Known Allergies Allergy (Verified 04/28/18 11:45) Objective Vital Signs 05/08/18 18:32 05/08/18 20:00 05/08/18 22:38 Temperature 100.2 F H Pulse Rate 61 Respiratory Rate 18 18 20 Blood Pressure 147/82 H Pulse Oximetry 94 L 05/09/18 00:00 05/09/18 08:00 05/09/18 09:05 Temperature 99.2 F 101.6 F H Pulse Rate 59 L 70 Respiratory Rate 18 20 18 Blood Pressure 145/82 H 153/92 H Pulse Oximetry 97 05/09/18 10:15 05/09/18 12:00 05/09/18 14:56 Temperature 100.9 F H Pulse Rate 80 Respiratory Rate 18 20 18 Blood Pressure 133/78 Pulse Oximetry 92 L 05/09/18 16:00 Temperature 101.4 F H Pulse Rate 74 Respiratory Rate 20 Blood Pressure 142/87 H Pulse Oximetry 91 L Intake & Output 05/08/18 05/09/18 05/09/18 18:59 06:59 18:59 Intake Total 500 / 500 580 / 580 200 / 200 Output Total 900 / 900 1200 / 1200 Balance -400 / -400 -620 / -620 200 / 200 Weight 63.3 kg Intake: IV 200 / 200 100 / 100 200 / 200 Flexbumin 25% Inj 100 ML @ 60 100 / 100 100 / 100 100 / 100 mls/hr IV.SIG Q12H [facility] Rx#: [id number] Maxipime Inj 500 MG In NS Inj 100 / 100 100 / 100 100 ML @ 200 mls/hr IV.SIG DAILY@0800 [facility] Rx#:[id number] Oral 300 / 300 480 / 480 Output: Urine 900 / 900 1200 / 1200 Other: Date of Last Bowel Movement 05/08/18 05/09/18 12:03 Blood - Peripheral Aerobic Blood Culture - Pending 05/09/18 12:03 Blood - Peripheral Anaerobic Blood Culture - Pending 05/09/18 10:43 Blood - Peripheral Aerobic Blood Culture - Pending 05/09/18 10:43 Blood - Peripheral Anaerobic Blood Culture - Pending 05/04/18 22:30 Sputum - Expectorated Sputum Gram Stain - Final 05/04/18 22:30 Sputum - Expectorated Sputum Sputum Culture - Final Heavy growth normal respiratory tonya 05/06/18 18:51 Nasal Wash Influenza Types A,B Antigen - Final Negative for FLU A and B antigen Infection due to influenza A or B cannot be ruled out since the antigen present in the sample may be below the detection limit of the test. Lab - Chemistry Results 05/08/18 05/09/18 06:37 05:45 Sodium 141 139 Potassium 3.9 4.7 D Chloride 105 105 Carbon Dioxide 28.1 27.8 Anion Gap 8 6 BUN 22 H 20 H Creatinine 3.30 H 2.70 H Estimated GFR 16 L 20 L Random Glucose 109 H 78 Calcium 8.2 L 8.4 L Imaging: ITS Impressions Hand X-Ray 04/28/18 14:51 CONCLUSION: Negative examination Abdomen/Pelvis CT 05/01/18 00:00 CONCLUSION: 1. Nonspecific, nonobstructive bowel gas pattern which may represent a mild ileus or gastroenteritis. 2. Apparent gallbladder wall thickening or pericholecystic fluid which may be due to ascites. 3. Anasarca and small amount of ascites. 4. Small bilateral pleural effusion. 5. Infiltrate in both lung bases. Abdomen Ultrasound 05/04/18 00:00 CONCLUSION: 1. No evidence of gallstones in the gallbladder. However, there is thickening of the gallbladder wall at 1 cm with a small amount of pericholecystic fluid. This can be seen with either acute or chronic acalculous cholecystitis. This needs to be correlated patient's physical and clinical exam as well as laboratory values. 2. There is some increased echogenicity of the liver parenchyma suggestive of some fatty infiltration. 3. There is a small amount of ascites in the abdomen. This is insufficient for paracentesis. 4. There is evidence of bilateral pleural effusions. 5. Mild hepatomegaly and splenomegaly. Catheter Placement 05/05/18 08:00 CONCLUSION: Uncomplicated ultrasound and fluoroscopic guided central venous dialysis catheter placement as above. Bile Acid Absorption NM 05/06/18 00:00 CONCLUSION: 1. Normal gallbladder uptake. 2. Poor ejection fraction. Chest X-Ray 05/06/18 00:00 CONCLUSION: Right internal jugular central line in good position. Bibasilar areas of consolidation or atelectasis. Some degree of effusions at the bases could be considered. A pneumothorax is not seen. Physical Exam: Alert, tearful No thrush Chest some rhonchi Heart soft systolic murmur Line sites look clean hand is healing Assessment and Plan (1) Fever Status: Acute Code(s): R50.9 - Fever, unspecified (2) Abscess of thumb, left Status: Acute Code(s): L02.512 - Cutaneous abscess of left hand (3) Acute renal failure Status: Acute Code(s): N17.9 - Acute kidney failure, unspecified - Plan Re check Blood cultures Continue Cefepime- readjust dose to 1 g daily Continue Zyvox 600 mg po bid Check a HIV test Repeat CXR and Sputum culture
[2018-05-09 19:17] LABS: Bilirubin,Urine Negative (Negative); Clarity,Urine Clear (Clear); Color,Urine Yellow (Yellw/Straw); Glucose,Urine (UA) Negative (Negative); Leukocyte Esterase,Urine Trace (Negative); Nitrite,Urine Negative (Negative); PH,Urine 7.5 (5.0-8.5); Urobilinogen,Urine 0.2 mg/dL (Less than 2)
[2018-05-09] MEDS: Acetaminophen 325 MG Tablet PO PRN (19:37)
[2018-05-09 19:40] LABS: RBC,Urine 0-3 /hpf (0-3); Squamous Epithelial Cell,Urine 0-5 /hpf (0-5)
[2018-05-09 19:41] LABS: Bacteria,Urine Rare /hpf
--- NOTE | 2018-05-09 19:41 | XR ---
EXAM DATE: 05/09/2018 12:00 AM EDT AGE/SEX: 37 years / Female INDICATIONS: . Cough. CLINICAL DATA: This is the patient's subsequent encounter. Patient reports that signs and symptoms h ave been present for 4 - 6 days and indicates a pain score of 0/10. MEDICAL/SURGICAL HISTORY: . Rheumatoid arthritis. Hepatitis C. MRSA. Fibromyalgia. Lupus. . COMPARISON: [facility], CHEST EXPIRATION ONLY, 05/06/2018. . FINDINGS: Dialysis catheter in good position. Small bilateral pleural effusions. Mild interstitial edema. The h eart and pulmonary vascularity are normal. The portion of the bony skeleton visualized is unremarkabl e. CONCLUSION: Mild interstitial edema. Dialysis catheter in good position. Electronically signed by: Dexter Damon MD 05/09/2018 7:39 PM EDT
[2018-05-10] MEDS ORDERED: CEFEPIME IV.SIG SCH ×2 (08:00→09:15)
[2018-05-10] MEDS ORDERED: SODIUM CHLOR 0.9% IV.SIG SCH ×2 (08:00→09:15)
[2018-05-10] MEDS: Linezolid 600 MG Tablet PO SCH ×2 (08:09→21:59)
[2018-05-10] MEDS: Lactobacillus Acidophilus/L. Spores Tablet PO SCH ×3 (08:09→17:22)
[2018-05-10] MEDS: Ferrous Sulfate 325 MG Tablet PO SCH (08:09)
[2018-05-10] MEDS: Sodium Chloride 0.9% 2 ML Flush BID IV.FLUSH SCH ×2 (08:10→21:36)
[2018-05-10] MEDS: Albumin Human 25% Inj 100 ML IV.SIG SCH (08:10)
[2018-05-10] MEDS: Acetaminophen 325 MG Tablet PO PRN ×2 (08:34→16:02)
[2018-05-10 09:28] LABS: Baso % (Auto) 0.6 % (0.0-2.0); Eos # (Auto) 0.2 th/mm3 (0.0-0.4); Eos % (Auto) 2.3 % (0.0-4.0); Hematocrit 26.6 % (35.0-46.0); Hemoglobin 9.3 gm/dL (11.6-15.3); Lymph # (Auto) 1.4 th/mm3 (1.0-4.8); Lymph % (Auto) 20.2 % (9.0-44.0); Mean Corpuscular HGB Conc 34.9 % (32.0-36.0); Mean Corpuscular Hemoglobin 31.1 pg (27.0-34.0); Mean Platelet Volume 8.6 fL (7.0-11.0); Mono # (Auto) 0.5 th/mm3 (0.0-0.9); Mono % (Auto) 7.8 % (0.0-8.0); Neut # (Auto) 4.8 th/mm3 (1.8-7.7); Neut % (Auto) 69.1 % (16.0-70.0); Platelet Count 167 th/mm3 (150-450); Red Blood Count 2.99 mil/mm3 (4.00-5.30); Red Cell Distribution Width 14.2 % (11.6-17.2); White Blood Count 6.9 th/mm3 (4.0-11.0)
[2018-05-10 09:47] LABS: Carbon Dioxide 26.2 meq/L (21.0-32.0)
[2018-05-10 09:48] LABS: Albumin 4.6 g/dL (3.4-5.0); Calcium 8.9 mg/dL (8.5-10.1); Glucose,Random 155 mg/dL (74-106)
[2018-05-10 09:51] LABS: Alanine Aminotransferase 44 U/L (10-53); Aspartate Aminotransferase 28 U/L (15-37); Glomerular Filtration Rate 24 mL/min (>89)
[2018-05-10 09:52] LABS: Total Protein 8.7 g/dL (6.4-8.2)
[2018-05-10 09:53] LABS: Alkaline Phosphatase 91 U/L (45-117)
[2018-05-10 10:07] LABS: Anion Gap 9 meq/L (5-15); Blood Urea Nitrogen 25 mg/dL (7-18); Chloride 102 meq/L (98-107); Potassium 3.7 meq/L (3.5-5.1); Sodium 137 meq/L (136-145)
--- NOTE | 2018-05-10 10:50 | P.PN ---
Subjective Interval history: Follow-up left arm cellulitis/abscess s/p I&D/acute kidney injury/ May 05, 2018-patient seen and examined, complains currently of migraine headaches. Also reported abdominal distention pressure but no pain. Reported episode of emesis overnight. Spiking fevers. May 06, 2018-patient seen and examined, still spiking fevers; Had dialysis yesterday May 07, 2018-patient seen and examined, T-max 100.1 at 8 PM, currently afebrile. Denies any significant abdominal distention. No acute event overnight. May 08, 2018-patient seen and examined, patient denies any urine output since she last went to bed last night. Currently afebrile. Complains of abdominal distention today but no nausea or vomiting May 09, 2018-patient seen and examined, still spiking fevers, states not feeling well today. good UOP. Renal indices improving May 10, 2018-patient seen and examined, T-max 102.5 at 8 AM. No chest pain or shortness of breath. Still with abdominal distention was tolerated p.o. without any complication of vomiting. Physical Exam Vital signs: Vital Signs 05/09/18 12:00 05/09/18 14:56 05/09/18 16:00 Temperature 100.9 F H 101.4 F H Pulse Rate 80 74 Respiratory Rate 20 18 20 Blood Pressure 133/78 142/87 H Pulse Oximetry 92 L 91 L 05/09/18 18:37 05/09/18 20:00 05/09/18 22:50 Temperature 99.8 F H Pulse Rate 69 Respiratory Rate 18 16 16 Blood Pressure 149/92 H Pulse Oximetry 95 05/10/18 00:00 05/10/18 03:10 05/10/18 08:00 Temperature 98.8 F 102.5 F H Pulse Rate 75 76 Respiratory Rate 16 16 18 Blood Pressure 142/88 H 140/78 Pulse Oximetry 97 95 Intake & Output 05/09/18 05/10/18 05/10/18 18:59 06:59 18:59 Intake Total 901 / 901 340 / 340 200 / 200 Output Total 1400 / 1400 3602 / 3602 Balance -499 / -499 -3262 / -3262 200 / 200 Weight 59.4 kg Intake: IV 200 / 200 100 / 100 200 / 200 Flexbumin 25% Inj 100 ML @ 60 100 / 100 100 / 100 100 / 100 mls/hr IV.SIG Q12H [facility] Rx#: [id number] Maxipime Inj 500 MG In NS Inj 100 / 100 100 ML @ 200 mls/hr IV.SIG DAILY@0800 [facility] Rx#:[id number] Maxipime Inj 1,000 MG In NS Inj 100 / 100 100 ML @ 200 mls/hr IV.SIG DAILY@0800 [facility] Rx#:[id number] Oral 701 / 701 240 / 240 Oral Supplement 0 / 0 Output: Urine 1400 / 1400 2100 / 2100 Hemodialysis Amount 1500 / 1500 Estimated Blood Loss 2 / Other: Post Void Residual 400 # Voids 1 1 Date of Last Bowel Movement 05/08/18 # Bowel Movements 0 Narrative: GENERAL: NAD SKIN: Warm and dry. HEAD: Atraumatic. Normocephalic. EYES: Pupils equal and round. No scleral icterus. No injection or drainage. ENT: No nasal bleeding or discharge. Mucous membranes pink and moist. NECK: Trachea midline. No JVD. CARDIOVASCULAR: Regular rate and rhythm. RESPIRATORY: No accessory muscle use. Clear to auscultation. Breath sounds equal bilaterally. GASTROINTESTINAL: Abdomen soft, non-tender, nondistended. Hepatic and splenic margins not palpable. MUSCULOSKELETAL: Extremities without clubbing, cyanosis, or edema. No obvious deformities. NEUROLOGICAL: Awake and alert. No obvious cranial nerve deficits. Motor grossly within normal limits. Five out of 5 muscle strength in the arms and legs. Normal speech. PSYCHIATRIC: Appropriate mood and affect; insight and judgment normal. Results - Labs CBC & Chem 7: 05/10/18 09:00 05/10/18 09:00 Laboratory Results - last 24 hr 05/09/18 05/10/18 05/10/18 18:30 09:00 09:00 CBC w Diff Auto diff final WBC 6.9 RBC 2.99 L Hgb 9.3 L Hct 26.6 L MCV 89.0 MCH 31.1 MCHC 34.9 RDW 14.2 Plt Count 167 MPV 8.6 Neut % (Auto) 69.1 Lymph % (Auto) 20.2 [place] % (Auto) 7.8 Eos % (Auto) 2.3 Baso % (Auto) 0.6 Neut # (Auto) 4.8 Lymph # (Auto) 1.4 [place] # (Auto) 0.5 Eos # (Auto) 0.2 Baso # (Auto) 0.0 WBC Differential . Differential Comment . Sodium 137 Potassium 3.7 D Chloride 102 Carbon Dioxide 26.2 Anion Gap 9 BUN 25 H Creatinine 2.30 H Estimated GFR 24 L Random Glucose 155 H Calcium 8.9 Total Bilirubin 0.4 AST 28 ALT 44 Alkaline Phosphatase 91 Total Protein 8.7 H D Albumin 4.6 Urine Color Yellow Urine Clarity Clear Urine pH 7.5 Ur Specific [place] 1.010 Urine Protein Negative Urine Glucose (UA) Negative Urine Ketones Negative Urine Occult Blood Trace Urine Nitrate Negative Urine Bilirubin Negative Urine Urobilinogen 0.2 Ur Leukocyte Esterase Trace H Urine RBC 0-3 Urine WBC 9-20 H Urine WBC Clumps Few H Ur Squamous Epith Cells 0-5 Urine Bacteria Rare H Micro UA Comment Culture indicated Ur Microscopic Review Microscopic reviewed Urine Culture Comments Culture indicated - Imaging Impressions Chest X-Ray 05/09/18 00:00 CONCLUSION: Mild interstitial edema. Dialysis catheter in good position. - Procedures none Assessment and Plan - Assessment (1) Abscess of thumb, left Code(s): L02.512 - Cutaneous abscess of left hand Status: Acute - Plan 37-year-old female with Acute kidney injury ATN 2/2 Vancomycin Appreciate input from nephrology She had hemodialysis x1 on May 05, 2018; Renal indices improving Continue to monitor BUN and creatinine, and avoid all nephrotoxic drug Vancomycin d/steve Unspecified abdominal pain Abdominal ultrasound noted Appreciate input from general surgery HIDA scan with normal gallbladder uptake However per Gen surgery , patient is currently a poor surgical candidate C. difficile PCR negative Hospital-acquired pneumonia Currently on cefepime, p.o. azithromycin. Blood culture negative to date Appreciate input from infectious disease specialist Left hand cellulitis/Abscess Status post I&D by hand surgery Culture positive for MRSA Previously on vancomycin, however secondary to worsening renal function this medication was d/steve Currently on Zyvox Appreciate input from infectious disease specialist Febrile episodes Repeat Blood culture NTD and UA negative 05/09/18 HIV pending 05/10/18 Ascites with abnormal liver function tests hepatitis C positive Continue with Lasix Need outpatient follow-up with Hepatology Ileus-resolved Previous history of IVDU Extensively counseled against History of iron deficiency anemia Currently on iron sulfate DVT prophylaxis with SCD
--- NOTE | 2018-05-10 14:35 | P.PNID ---
Subjective Remarks: Continues to run fevers- now with chills PICC & Dialysis catheter removed Hand feels fine Antibiotics: Cefepime and Zyvox Lines: Left PICC line and RT IJ dialysis catheter Past Medical History: Past h/o renal failure Allergies/Adverse Reactions: Allergies No Known Allergies Allergy (Verified 04/28/18 11:45) Objective Vital Signs 05/09/18 14:56 05/09/18 16:00 05/09/18 18:37 Temperature 101.4 F H Pulse Rate 74 Respiratory Rate 18 20 18 Blood Pressure 142/87 H Pulse Oximetry 91 L 05/09/18 20:00 05/09/18 22:50 05/10/18 00:00 Temperature 99.8 F H 98.8 F Pulse Rate 69 75 Respiratory Rate 16 16 16 Blood Pressure 149/92 H 142/88 H Pulse Oximetry 95 97 05/10/18 03:10 05/10/18 08:00 05/10/18 12:00 Temperature 102.5 F H 99.8 F H Pulse Rate 76 72 Respiratory Rate 16 18 Blood Pressure 140/78 122/69 Pulse Oximetry 95 95 05/10/18 13:02 Temperature Pulse Rate Respiratory Rate 20 Blood Pressure Pulse Oximetry Intake & Output 05/09/18 05/10/18 05/10/18 18:59 06:59 18:59 Intake Total 901 / 901 340 / 340 200 / 200 Output Total 1400 / 1400 3602 / 3602 Balance -499 / -499 -3262 / -3262 200 / 200 Weight 59.4 kg Intake: IV 200 / 200 100 / 100 200 / 200 Flexbumin 25% Inj 100 ML @ 60 100 / 100 100 / 100 100 / 100 mls/hr IV.SIG Q12H [facility] Rx#: [id number] Maxipime Inj 500 MG In NS Inj 100 / 100 100 ML @ 200 mls/hr IV.SIG DAILY@0800 [facility] Rx#:[id number] Maxipime Inj 1,000 MG In NS Inj 100 / 100 100 ML @ 200 mls/hr IV.SIG DAILY@0800 [facility] Rx#:[id number] Oral 701 / 701 240 / 240 Oral Supplement 0 / 0 Output: Urine 1400 / 1400 2100 / 2100 Hemodialysis Amount 1500 / 1500 Estimated Blood Loss 2 / 2 Other: Post Void Residual 400 # Voids 1 1 Date of Last Bowel Movement 05/08/18 # Bowel Movements 0 05/09/18 18:30 Clean Catch Urine Urine Culture - Preliminary <10,000 cfu/mL gram positive tonya - no further workup 05/09/18 12:03 Blood - Peripheral Aerobic Blood Culture - Preliminary No growth in 1 day 05/09/18 12:03 Blood - Peripheral Anaerobic Blood Culture - Preliminary No growth in 1 day 05/09/18 10:43 Blood - Peripheral Aerobic Blood Culture - Preliminary No growth in 1 day 05/09/18 10:43 Blood - Peripheral Anaerobic Blood Culture - Preliminary No growth in 1 day 05/04/18 22:30 Sputum - Expectorated Sputum Gram Stain - Final 05/04/18 22:30 Sputum - Expectorated Sputum Sputum Culture - Final Heavy growth normal respiratory tonya Lab - Hematology Results 05/10/18 09:00 CBC w Diff Auto diff final WBC 6.9 RBC 2.99 L Hgb 9.3 L Hct 26.6 L MCV 89.0 MCH 31.1 MCHC 34.9 RDW 14.2 Plt Count 167 MPV 8.6 Neut % (Auto) 69.1 Lymph % (Auto) 20.2 [place] % (Auto) 7.8 Eos % (Auto) 2.3 Baso % (Auto) 0.6 Neut # (Auto) 4.8 Lymph # (Auto) 1.4 [place] # (Auto) 0.5 Eos # (Auto) 0.2 Baso # (Auto) 0.0 WBC Differential . Differential Comment . Lab - Chemistry Results 05/09/18 05/10/18 05:45 09:00 Sodium 139 137 Potassium 4.7 D 3.7 D Chloride 105 102 Carbon Dioxide 27.8 26.2 Anion Gap 6 9 BUN 20 H 25 H Creatinine 2.70 H 2.30 H Estimated GFR 20 L 24 L Random Glucose 78 155 H Calcium 8.4 L 8.9 Total Bilirubin 0.4 AST 28 ALT 44 Alkaline Phosphatase 91 Total Protein 8.7 H D Albumin 4.6 Imaging: ITS Impressions Hand X-Ray 04/28/18 14:51 CONCLUSION: Negative examination Abdomen/Pelvis CT 05/01/18 00:00 CONCLUSION: 1. Nonspecific, nonobstructive bowel gas pattern which may represent a mild ileus or gastroenteritis. 2. Apparent gallbladder wall thickening or pericholecystic fluid which may be due to ascites. 3. Anasarca and small amount of ascites. 4. Small bilateral pleural effusion. 5. Infiltrate in both lung bases. Abdomen Ultrasound 05/04/18 00:00 CONCLUSION: 1. No evidence of gallstones in the gallbladder. However, there is thickening of the gallbladder wall at 1 cm with a small amount of pericholecystic fluid. This can be seen with either acute or chronic acalculous cholecystitis. This needs to be correlated patient's physical and clinical exam as well as laboratory values. 2. There is some increased echogenicity of the liver parenchyma suggestive of some fatty infiltration. 3. There is a small amount of ascites in the abdomen. This is insufficient for paracentesis. 4. There is evidence of bilateral pleural effusions. 5. Mild hepatomegaly and splenomegaly. Catheter Placement 05/05/18 08:00 CONCLUSION: Uncomplicated ultrasound and fluoroscopic guided central venous dialysis catheter placement as above. Bile Acid Absorption NM 05/06/18 00:00 CONCLUSION: 1. Normal gallbladder uptake. 2. Poor ejection fraction. Chest X-Ray 05/09/18 00:00 CONCLUSION: Mild interstitial edema. Dialysis catheter in good position. Physical Exam: Alert, tearful has chills No thrush Chest some rhonchi Heart soft systolic murmur Lines removed hand is healing Assessment and Plan (1) Fever Status: Acute Code(s): R50.9 - Fever, unspecified (2) Abscess of thumb, left Status: Acute Code(s): L02.512 - Cutaneous abscess of left hand (3) Acute renal failure Status: Acute Code(s): N17.9 - Acute kidney failure, unspecified - Plan Re check Blood cultures- so far negative Continue Cefepime- readjust dose to 1 g daily Continue Zyvox 600 mg po bid HIV test pending Agree with removal of lines
--- NOTE | 2018-05-10 18:12 | P.PNNP ---
Subjective Interval history: fever Physical Exam Vital signs: Vital Signs 05/09/18 18:37 05/09/18 20:00 05/09/18 22:50 Temperature 99.8 F H Pulse Rate 69 Respiratory Rate 18 16 16 Blood Pressure 149/92 H Pulse Oximetry 95 05/10/18 00:00 05/10/18 03:10 05/10/18 08:00 Temperature 98.8 F 102.5 F H Pulse Rate 75 76 Respiratory Rate 16 16 18 Blood Pressure 142/88 H 140/78 Pulse Oximetry 97 95 05/10/18 12:00 05/10/18 13:02 05/10/18 16:00 Temperature 99.8 F H 101.2 F H Pulse Rate 72 69 Respiratory Rate 20 18 Blood Pressure 122/69 142/86 H Pulse Oximetry 95 95 05/10/18 16:29 Temperature Pulse Rate Respiratory Rate 18 Blood Pressure Pulse Oximetry Intake & Output 05/09/18 05/10/18 05/10/18 18:59 06:59 18:59 Intake Total 901 / 901 340 / 340 200 / 200 Output Total 1400 / 1400 3602 / 3602 Balance -499 / -499 -3262 / -3262 200 / 200 Weight 59.4 kg Intake: IV 200 / 200 100 / 100 200 / 200 Flexbumin 25% Inj 100 ML @ 60 100 / 100 100 / 100 100 / 100 mls/hr IV.SIG Q12H [facility] Rx#: [id number] Maxipime Inj 500 MG In NS Inj 100 / 100 100 ML @ 200 mls/hr IV.SIG DAILY@0800 [facility] Rx#:[id number] Maxipime Inj 1,000 MG In NS Inj 100 / 100 100 ML @ 200 mls/hr IV.SIG DAILY@0800 [facility] Rx#:[id number] Oral 701 / 701 240 / 240 Oral Supplement 0 / 0 Output: Urine 1400 / 1400 2100 / 2100 Hemodialysis Amount 1500 / 1500 Estimated Blood Loss 2 / 2 Other: Post Void Residual 400 # Voids 1 1 Date of Last Bowel Movement 05/08/18 # Bowel Movements 0 Narrative: GENERAL: NAD SKIN: Warm and dry. HEAD: Atraumatic. Normocephalic. EYES: Pupils equal and round. No scleral icterus. No injection or drainage. ENT: No nasal bleeding or discharge. Mucous membranes pink and moist. NECK: Trachea midline. No JVD. CARDIOVASCULAR: Regular rate and rhythm. RESPIRATORY: No accessory muscle use. Clear to auscultation. Breath sounds equal bilaterally. GASTROINTESTINAL: Abdomen soft, non-tender, nondistended. Hepatic and splenic margins not palpable. MUSCULOSKELETAL: Extremities without clubbing, cyanosis, or edema. No obvious deformities. NEUROLOGICAL: Awake and alert. No obvious cranial nerve deficits. Motor grossly within normal limits. Five out of 5 muscle strength in the arms and legs. Normal speech. PSYCHIATRIC: Appropriate mood and affect; insight and judgment normal. Assessment and Plan - Assessment (1) Acute renal failure Code(s): N17.9 - Acute kidney failure, unspecified Status: Acute (2) Abscess of thumb, left Code(s): L02.512 - Cutaneous abscess of left hand Status: Acute (3) Rheumatoid arthritis Code(s): M06.9 - Rheumatoid arthritis, unspecified Status: Acute (4) Fibromyalgia Code(s): M79.7 - Fibromyalgia Status: Acute - Plan Patient has history of rheumatoid arthritis, recently had an infection with MRSA use vancomycin, ATN urine output 3.5 L stop Lasix/K supplements She is likely having ATN from vancomycin fever from hand cellulitis on Zyvox I will follow as needed
[2018-05-11] MEDS: Sodium Chloride 0.9% 2 ML Flush BID IV.FLUSH SCH ×2 (08:07→20:14)
[2018-05-11] MEDS: Lactobacillus Acidophilus/L. Spores Tablet PO SCH ×3 (08:10→17:44)
[2018-05-11] MEDS: Linezolid 600 MG Tablet PO SCH ×2 (08:10→20:14)
[2018-05-11] MEDS: Ferrous Sulfate 325 MG Tablet PO SCH (08:10)
--- NOTE | 2018-05-11 10:58 | P.PNNP ---
Subjective Interval history: has fever Thumb pain Physical Exam Vital signs: Vital Signs 05/10/18 12:00 05/10/18 13:02 05/10/18 16:00 Temperature 99.8 F H 101.2 F H Pulse Rate 72 69 Respiratory Rate 20 18 Blood Pressure 122/69 142/86 H Pulse Oximetry 95 95 05/10/18 16:29 05/10/18 20:00 05/11/18 00:00 Temperature 100.8 F H Pulse Rate 69 Respiratory Rate 18 16 18 Blood Pressure 137/85 Pulse Oximetry 95 05/11/18 06:07 05/11/18 08:00 Temperature 99.4 F Pulse Rate 76 Respiratory Rate 17 20 Blood Pressure 122/66 Pulse Oximetry 95 Intake & Output 05/10/18 05/11/18 05/11/18 18:59 06:59 18:59 Intake Total 980 / 980 250 / 250 340 / 340 Output Total 1000 / 1000 800 / 800 Balance -20 / -20 -550 / -550 340 / 340 Intake: IV 200 / 200 100 / 100 Flexbumin 25% Inj 100 ML @ 60 100 / 100 mls/hr IV.SIG Q12H [facility] Rx#: [id number] Maxipime Inj 1,000 MG In NS Inj 100 / 100 100 / 100 100 ML @ 200 mls/hr IV.SIG DAILY@0800 [facility] Rx#:[id number] Oral 780 / 780 250 / 250 240 / 240 Output: Urine 1000 / 1000 800 / 800 Other: Date of Last Bowel Movement 05/08/18 # Bowel Movements 1 Narrative: GENERAL: NAD SKIN: Warm and dry. HEAD: Atraumatic. Normocephalic. EYES: Pupils equal and round. No scleral icterus. No injection or drainage. ENT: No nasal bleeding or discharge. Mucous membranes pink and moist. NECK: Trachea midline. No JVD. CARDIOVASCULAR: Regular rate and rhythm. RESPIRATORY: No accessory muscle use. Clear to auscultation. Breath sounds equal bilaterally. GASTROINTESTINAL: Abdomen soft, non-tender, nondistended. Hepatic and splenic margins not palpable. MUSCULOSKELETAL: Extremities without clubbing, cyanosis, or edema. No obvious deformities. NEUROLOGICAL: Awake and alert. No obvious cranial nerve deficits. Motor grossly within normal limits. Five out of 5 muscle strength in the arms and legs. Normal speech. PSYCHIATRIC: Appropriate mood and affect; insight and judgment normal. Assessment and Plan - Assessment (1) Acute renal failure Code(s): N17.9 - Acute kidney failure, unspecified Status: Acute (2) Abscess of thumb, left Code(s): L02.512 - Cutaneous abscess of left hand Status: Acute (3) Rheumatoid arthritis Code(s): M06.9 - Rheumatoid arthritis, unspecified Status: Acute (4) Fibromyalgia Code(s): M79.7 - Fibromyalgia Status: Acute - Plan Patient has history of rheumatoid arthritis, recently had an infection with MRSA use vancomycin, ATN urine output good cr 2 decreased off Lasix/K supplements She is likely having ATN from vancomycin fever from hand cellulitis on Zyvox I will follow as needed
--- NOTE | 2018-05-11 11:00 | P.PN ---
Subjective Interval history: Follow-up left arm cellulitis/abscess s/p I&D/acute kidney injury/ May 11, 2018-patient seen and examined, continued to spike fevers with T of 100.8 at midnight currently afebrile however, states she is not feeling well. HIV negative Physical Exam Vital signs: Vital Signs 05/10/18 12:00 05/10/18 13:02 05/10/18 16:00 Temperature 99.8 F H 101.2 F H Pulse Rate 72 69 Respiratory Rate 20 18 Blood Pressure 122/69 142/86 H Pulse Oximetry 95 95 05/10/18 16:29 05/10/18 20:00 05/11/18 00:00 Temperature 100.8 F H Pulse Rate 69 Respiratory Rate 18 16 18 Blood Pressure 137/85 Pulse Oximetry 95 05/11/18 06:07 05/11/18 08:00 Temperature 99.4 F Pulse Rate 76 Respiratory Rate 17 20 Blood Pressure 122/66 Pulse Oximetry 95 Intake & Output 05/10/18 05/11/18 05/11/18 18:59 06:59 18:59 Intake Total 980 / 980 250 / 250 340 / 340 Output Total 1000 / 1000 800 / 800 Balance -20 / -20 -550 / -550 340 / 340 Intake: IV 200 / 200 100 / 100 Flexbumin 25% Inj 100 ML @ 60 100 / 100 mls/hr IV.SIG Q12H [facility] Rx#: [id number] Maxipime Inj 1,000 MG In NS Inj 100 / 100 100 / 100 100 ML @ 200 mls/hr IV.SIG DAILY@0800 [facility] Rx#:[id number] Oral 780 / 780 250 / 250 240 / 240 Output: Urine 1000 / 1000 800 / 800 Other: Date of Last Bowel Movement 05/08/18 # Bowel Movements 1 Narrative: GENERAL: NAD SKIN: Warm and dry. HEAD: Atraumatic. Normocephalic. EYES: Pupils equal and round. No scleral icterus. No injection or drainage. ENT: No nasal bleeding or discharge. Mucous membranes pink and moist. NECK: Trachea midline. No JVD. CARDIOVASCULAR: Regular rate and rhythm. RESPIRATORY: No accessory muscle use. Clear to auscultation. Breath sounds equal bilaterally. GASTROINTESTINAL: Abdomen soft, non-tender, nondistended. Hepatic and splenic margins not palpable. MUSCULOSKELETAL: Extremities without clubbing, cyanosis, or edema. No obvious deformities. NEUROLOGICAL: Awake and alert. No obvious cranial nerve deficits. Motor grossly within normal limits. Five out of 5 muscle strength in the arms and legs. Normal speech. PSYCHIATRIC: Appropriate mood and affect; insight and judgment normal. Results - Labs CBC & Chem 7: 05/10/18 09:00 05/11/18 05:40 Laboratory Results - last 24 hr 05/10/18 05/11/18 09:00 05:40 Creatinine 2.00 H Estimated GFR 28 L HIV 1&2 Ab/P24 Ag 4thGn Nonreactive Microbiology 05/09/18 18:30 Clean Catch Urine Urine Culture - Final <10,000 cfu/mL gram negative rods - no further workup 05/09/18 12:03 Blood - Peripheral Aerobic Blood Culture - Preliminary No growth in 1 day 05/09/18 12:03 Blood - Peripheral Anaerobic Blood Culture - Preliminary No growth in 1 day 05/09/18 10:43 Blood - Peripheral Aerobic Blood Culture - Preliminary No growth in 1 day 05/09/18 10:43 Blood - Peripheral Anaerobic Blood Culture - Preliminary No growth in 1 day - Procedures none Assessment and Plan - Assessment (1) Abscess of thumb, left Code(s): L02.512 - Cutaneous abscess of left hand Status: Acute - Plan 37-year-old female with Acute kidney injury ATN 2/2 Vancomycin Appreciate input from nephrology She had hemodialysis x1 on May 05, 2018; Renal indices improving Continue to monitor BUN and creatinine, and avoid all nephrotoxic drug Vancomycin d/steve Unspecified abdominal pain-improving Abdominal ultrasound noted Appreciate input from general surgery HIDA scan with normal gallbladder uptake However per Gen surgery , patient is currently a poor surgical candidate C. difficile PCR negative Hospital-acquired pneumonia Currently on cefepime Blood culture negative to date Appreciate input from infectious disease specialist Left hand cellulitis/Abscess Status post I&D by hand surgery Culture positive for MRSA Currently on Zyvox Appreciate input from infectious disease specialist Febrile episodes Repeat Blood culture NTD and UA negative 05/09/18 HIV negative ID ff Ascites with abnormal liver function tests hepatitis C positive Continue with Lasix Need outpatient follow-up with Hepatology Ileus-resolved Previous history of IVDU Extensively counseled against History of iron deficiency anemia Currently on iron sulfate DVT prophylaxis with SCD
[2018-05-11] MEDS: Acetaminophen 325 MG Tablet PO PRN ×2 (11:47→20:14)
--- NOTE | 2018-05-11 18:22 | P.PNID ---
Subjective Remarks: Continues to run fevers- c/o chills PICC & Dialysis catheter removed yesterday C/o pain in hand Antibiotics: Cefepime and Zyvox Lines: Left PICC line and RT IJ dialysis catheter removed Past Medical History: Past h/o renal failure Allergies/Adverse Reactions: Allergies No Known Allergies Allergy (Verified 04/28/18 11:45) Objective Vital Signs 05/10/18 20:00 05/11/18 00:00 05/11/18 06:07 Temperature 100.8 F H Pulse Rate 69 Respiratory Rate 16 18 17 Blood Pressure 137/85 Pulse Oximetry 95 05/11/18 08:00 05/11/18 09:58 05/11/18 12:00 Temperature 99.4 F 100.8 F H Pulse Rate 76 78 Respiratory Rate 20 17 20 Blood Pressure 122/66 125/76 Pulse Oximetry 95 95 05/11/18 12:17 05/11/18 14:27 Temperature Pulse Rate Respiratory Rate 17 17 Blood Pressure Pulse Oximetry Intake & Output 05/10/18 05/11/18 05/11/18 18:59 06:59 18:59 Intake Total 980 / 980 250 / 250 340 / 340 Output Total 1000 / 1000 800 / 800 Balance -20 / -20 -550 / -550 340 / 340 Intake: IV 200 / 200 100 / 100 Flexbumin 25% Inj 100 ML @ 60 100 / 100 mls/hr IV.SIG Q12H [facility] [place] Rx#: [id number] Maxipime Inj 1,000 MG In NS Inj 100 / 100 100 / 100 100 ML @ 200 mls/hr IV.SIG DAILY@0800 [facility] Rx#:[id number] Oral 780 / 780 250 / 250 240 / 240 Output: Urine 1000 / 1000 800 / 800 Other: Date of Last Bowel Movement 05/08/18 05/10/18 # Bowel Movements 1 05/09/18 12:03 Blood - Peripheral Aerobic Blood Culture - Preliminary No growth in 2 days 05/09/18 12:03 Blood - Peripheral Anaerobic Blood Culture - Preliminary No growth in 2 days 05/09/18 10:43 Blood - Peripheral Aerobic Blood Culture - Preliminary No growth in 2 days 05/09/18 10:43 Blood - Peripheral Anaerobic Blood Culture - Preliminary No growth in 2 days 05/09/18 18:30 Clean Catch Urine Urine Culture - Final <10,000 cfu/mL gram negative rods - no further workup Lab - Hematology Results 05/10/18 09:00 CBC w Diff Auto diff final WBC 6.9 RBC 2.99 L Hgb 9.3 L Hct 26.6 L MCV 89.0 MCH 31.1 MCHC 34.9 RDW 14.2 Plt Count 167 MPV 8.6 Neut % (Auto) 69.1 Lymph % (Auto) 20.2 [place] % (Auto) 7.8 Eos % (Auto) 2.3 Baso % (Auto) 0.6 Neut # (Auto) 4.8 Lymph # (Auto) 1.4 [place] # (Auto) 0.5 Eos # (Auto) 0.2 Baso # (Auto) 0.0 WBC Differential . Differential Comment . Lab - Chemistry Results 05/10/18 05/11/18 09:00 05:40 Sodium 137 Potassium 3.7 D Chloride 102 Carbon Dioxide 26.2 Anion Gap 9 BUN 25 H Creatinine 2.30 H 2.00 H Estimated GFR 24 L 28 L Random Glucose 155 H Calcium 8.9 Total Bilirubin 0.4 AST 28 ALT 44 Alkaline Phosphatase 91 Total Protein 8.7 H D Albumin 4.6 Imaging: ITS Impressions Hand X-Ray 04/28/18 14:51 CONCLUSION: Negative examination Abdomen/Pelvis CT 05/01/18 00:00 CONCLUSION: 1. Nonspecific, nonobstructive bowel gas pattern which may represent a mild ileus or gastroenteritis. 2. Apparent gallbladder wall thickening or pericholecystic fluid which may be due to ascites. 3. Anasarca and small amount of ascites. 4. Small bilateral pleural effusion. 5. Infiltrate in both lung bases. Abdomen Ultrasound 05/04/18 00:00 CONCLUSION: 1. No evidence of gallstones in the gallbladder. However, there is thickening of the gallbladder wall at 1 cm with a small amount of pericholecystic fluid. This can be seen with either acute or chronic acalculous cholecystitis. This needs to be correlated patient's physical and clinical exam as well as laboratory values. 2. There is some increased echogenicity of the liver parenchyma suggestive of some fatty infiltration. 3. There is a small amount of ascites in the abdomen. This is insufficient for paracentesis. 4. There is evidence of bilateral pleural effusions. 5. Mild hepatomegaly and splenomegaly. Catheter Placement 05/05/18 08:00 CONCLUSION: Uncomplicated ultrasound and fluoroscopic guided central venous dialysis catheter placement as above. Bile Acid Absorption NM 05/06/18 00:00 CONCLUSION: 1. Normal gallbladder uptake. 2. Poor ejection fraction. Chest X-Ray 05/09/18 00:00 CONCLUSION: Mild interstitial edema. Dialysis catheter in good position. Physical Exam: Alert, tearful has chills No thrush Chest some rhonchi Heart soft systolic murmur Lines removed hand is healing Assessment and Plan (1) Abscess of thumb, left Status: Acute Code(s): L02.512 - Cutaneous abscess of left hand (2) Acute renal failure Status: Acute Code(s): N17.9 - Acute kidney failure, unspecified (3) Fever Status: Acute Code(s): R50.9 - Fever, unspecified - Plan Follow repeat cultures HIV negative Continue the Zyvox and Cefepime Add Fluconazole 100 mg po dialy
[2018-05-11] MEDS: Fluconazole 100 MG Tablet PO SCH (20:14)
--- NOTE | 2018-05-12 10:08 | P.PNIM ---
Subjective Interval history: f/u; KAYE/pneumonia in no acute distress. T max 100.9. complaining of moderate to severe pain to the left hand. Physical Exam Vital signs: Vital Signs 05/11/18 12:00 05/11/18 12:17 05/11/18 14:27 Temperature 100.8 F H Pulse Rate 78 Respiratory Rate 20 17 17 Blood Pressure 125/76 Pulse Oximetry 95 05/11/18 16:00 05/11/18 18:14 05/11/18 20:00 Temperature 97.6 F 100.9 F H Pulse Rate 64 72 Respiratory Rate 20 18 18 Blood Pressure 142/85 H Pulse Oximetry 96 100 05/11/18 22:45 05/12/18 00:00 05/12/18 02:12 Temperature 99.8 F H Pulse Rate 74 Respiratory Rate 18 18 18 Blood Pressure 140/85 Pulse Oximetry 100 05/12/18 06:34 Temperature Pulse Rate Respiratory Rate 18 Blood Pressure Pulse Oximetry Intake & Output 05/11/18 05/12/18 05/12/18 18:59 06:59 18:59 Intake Total 340 / 340 480 / 480 100 / 100 Balance 340 / 340 480 / 480 100 / 100 Weight 59.8 kg Intake: IV 100 / 100 100 / 100 Maxipime Inj 1,000 MG In NS Inj 100 / 100 100 / 100 100 ML @ 200 mls/hr IV.SIG DAILY@0800 [facility] Rx#:[id number] Oral 240 / 240 480 / 480 Oral Supplement 0 / 0 Other: Date of Last Bowel Movement 05/10/18 05/10/18 05/10/18 # Bowel Movements 1 - Constitutional no acute distress - Routine Respiratory Exam Present: CTA bilaterally - Routine Cardiovascular Exam Present: RRR - Routine Abdominal Exam Present: soft - Routine Extremities Exam Comments: no pedal edema. - Routine Neurological Exam Present: alert, oriented X3 Results - Labs CBC & Chem 7: 05/10/18 09:00 05/11/18 05:40 Microbiology 05/09/18 12:03 Blood - Peripheral Aerobic Blood Culture - Preliminary No growth in 2 days 05/09/18 12:03 Blood - Peripheral Anaerobic Blood Culture - Preliminary No growth in 2 days 05/09/18 10:43 Blood - Peripheral Aerobic Blood Culture - Preliminary No growth in 2 days 05/09/18 10:43 Blood - Peripheral Anaerobic Blood Culture - Preliminary No growth in 2 days 05/09/18 18:30 Clean Catch Urine Urine Culture - Final <10,000 cfu/mL gram negative rods - no further workup - Procedures none Assessment and Plan - Assessment (1) Abscess of thumb, left Code(s): L02.512 - Cutaneous abscess of left hand Status: Acute - Plan Acute kidney injury ATN 2/2 Vancomycin Appreciate input from nephrology She had hemodialysis x1 on May 05, 2018; Renal indices improving Continue to monitor BUN and creatinine, and avoid all nephrotoxic drug Vancomycin d/steve Unspecified abdominal pain-improving Abdominal ultrasound noted Appreciate input from general surgery HIDA scan with normal gallbladder uptake However per Gen surgery , patient is currently a poor surgical candidate C. difficile PCR negative Hospital-acquired pneumonia Currently on cefepime Blood culture negative to date Appreciate input from infectious disease specialist Left hand cellulitis/Abscess Status post I&D by hand surgery Culture positive for MRSA Currently on Zyvox Appreciate input from infectious disease specialist Febrile episodes Repeat Blood culture NTD and UA negative 05/09/18 HIV negative ID ff Ascites with abnormal liver function tests hepatitis C positive Continue with Lasix Need outpatient follow-up with Hepatology Ileus-resolved Previous history of IVDU Extensively counseled against History of iron deficiency anemia Currently on iron sulfate DVT prophylaxis with SCD
[2018-05-12] MEDS: Fluconazole 100 MG Tablet PO SCH (10:10)
[2018-05-12] MEDS: Linezolid 600 MG Tablet PO SCH ×2 (10:10→21:42)
[2018-05-12] MEDS: Lactobacillus Acidophilus/L. Spores Tablet PO SCH ×3 (10:10→18:10)
[2018-05-12] MEDS: Acetaminophen 325 MG Tablet PO PRN ×2 (10:10→23:36)
[2018-05-12] MEDS: Ferrous Sulfate 325 MG Tablet PO SCH (10:10)
[2018-05-12] MEDS: Sodium Chloride 0.9% 2 ML Flush BID IV.FLUSH SCH ×2 (10:11→22:27)
--- NOTE | 2018-05-12 18:47 | P.PNID ---
Subjective Remarks: Continues to run fevers- c/o chills PICC & Dialysis catheter removed C/o pain in hand Pain in hand more Antibiotics: Cefepime and Zyvox Lines: Left PICC line and RT IJ dialysis catheter removed Past Medical History: Past h/o renal failure Allergies/Adverse Reactions: Allergies No Known Allergies Allergy (Verified 04/28/18 11:45) Objective Vital Signs 05/11/18 20:00 05/11/18 22:45 05/12/18 00:00 Temperature 100.9 F H 99.8 F H Pulse Rate 72 74 Respiratory Rate 18 18 18 Blood Pressure 142/85 H 140/85 Pulse Oximetry 100 100 05/12/18 02:12 05/12/18 06:34 05/12/18 10:25 Temperature 101.1 F H Pulse Rate 87 Respiratory Rate 18 18 20 Blood Pressure 117/72 Pulse Oximetry 94 L 05/12/18 12:00 05/12/18 16:00 Temperature 98.5 F 99.9 F H Pulse Rate 72 71 Respiratory Rate 20 20 Blood Pressure 104/67 113/73 Pulse Oximetry 96 96 Intake & Output 05/11/18 05/12/18 05/12/18 18:59 06:59 18:59 Intake Total 340 / 340 480 / 480 100 / 100 Balance 340 / 340 480 / 480 100 / 100 Weight 59.8 kg Intake: IV 100 / 100 100 / 100 Maxipime Inj 1,000 MG In NS Inj 100 / 100 100 / 100 100 ML @ 200 mls/hr IV.SIG DAILY@0800 [facility] Rx#:[id number] Oral 240 / 240 480 / 480 Oral Supplement 0 / 0 Other: Date of Last Bowel Movement 05/10/18 05/10/18 05/10/18 # Bowel Movements 1 05/09/18 12:03 Blood - Peripheral Aerobic Blood Culture - Preliminary No growth in 3 days 05/09/18 12:03 Blood - Peripheral Anaerobic Blood Culture - Preliminary No growth in 3 days 05/09/18 10:43 Blood - Peripheral Aerobic Blood Culture - Preliminary No growth in 3 days 05/09/18 10:43 Blood - Peripheral Anaerobic Blood Culture - Preliminary No growth in 3 days 05/09/18 18:30 Clean Catch Urine Urine Culture - Final <10,000 cfu/mL gram negative rods - no further workup Lab - Chemistry Results 05/11/18 05:40 Creatinine 2.00 H Estimated GFR 28 L Imaging: ITS Impressions Hand X-Ray 04/28/18 14:51 CONCLUSION: Negative examination Abdomen/Pelvis CT 05/01/18 00:00 CONCLUSION: 1. Nonspecific, nonobstructive bowel gas pattern which may represent a mild ileus or gastroenteritis. 2. Apparent gallbladder wall thickening or pericholecystic fluid which may be due to ascites. 3. Anasarca and small amount of ascites. 4. Small bilateral pleural effusion. 5. Infiltrate in both lung bases. Abdomen Ultrasound 05/04/18 00:00 CONCLUSION: 1. No evidence of gallstones in the gallbladder. However, there is thickening of the gallbladder wall at 1 cm with a small amount of pericholecystic fluid. This can be seen with either acute or chronic acalculous cholecystitis. This needs to be correlated patient's physical and clinical exam as well as laboratory values. 2. There is some increased echogenicity of the liver parenchyma suggestive of some fatty infiltration. 3. There is a small amount of ascites in the abdomen. This is insufficient for paracentesis. 4. There is evidence of bilateral pleural effusions. 5. Mild hepatomegaly and splenomegaly. Catheter Placement 05/05/18 08:00 CONCLUSION: Uncomplicated ultrasound and fluoroscopic guided central venous dialysis catheter placement as above. Bile Acid Absorption NM 05/06/18 00:00 CONCLUSION: 1. Normal gallbladder uptake. 2. Poor ejection fraction. Chest X-Ray 05/09/18 00:00 CONCLUSION: Mild interstitial edema. Dialysis catheter in good position. Physical Exam: Alert, tearful has chills No thrush Chest some rhonchi Heart soft systolic murmur Lines removed hand is healing Assessment and Plan (1) Abscess of thumb, left Status: Acute Code(s): L02.512 - Cutaneous abscess of left hand (2) Acute renal failure Status: Acute Code(s): N17.9 - Acute kidney failure, unspecified (3) Fever Status: Acute Code(s): R50.9 - Fever, unspecified - Plan Follow repeat cultures HIV negative Continue the Zyvox and Cefepime Continue Fluconazole 100 mg po dialy Check MR left hand with no contrast for osteo/ septic arthritis
[2018-05-13 07:08] LABS: Baso % (Auto) 0.3 % (0.0-2.0); Eos # (Auto) 0.2 th/mm3 (0.0-0.4); Eos % (Auto) 2.6 % (0.0-4.0); Hematocrit 30.6 % (35.0-46.0); Lymph # (Auto) 1.3 th/mm3 (1.0-4.8); Lymph % (Auto) 18.2 % (9.0-44.0); Mean Corpuscular HGB Conc 32.6 % (32.0-36.0); Mean Corpuscular Hemoglobin 29.5 pg (27.0-34.0); Mean Corpuscular Volume 90.4 fL (80.0-100.0); Mean Platelet Volume 7.4 fL (7.0-11.0); Mono # (Auto) 0.8 th/mm3 (0.0-0.9); Mono % (Auto) 10.7 % (0.0-8.0); Neut # (Auto) 5.1 th/mm3 (1.8-7.7); Neut % (Auto) 68.2 % (16.0-70.0); Platelet Count 230 th/mm3 (150-450); Red Blood Count 3.38 mil/mm3 (4.00-5.30); Red Cell Distribution Width 13.5 % (11.6-17.2); White Blood Count 7.4 th/mm3 (4.0-11.0)
[2018-05-13 07:19] LABS: Chloride 105 meq/L (98-107); Potassium 4.5 meq/L (3.5-5.1); Sodium 135 meq/L (136-145)
[2018-05-13 07:22] LABS: Albumin 4.4 g/dL (3.4-5.0); Anion Gap 9 meq/L (5-15); Blood Urea Nitrogen 24 mg/dL (7-18); Calcium 9.3 mg/dL (8.5-10.1); Carbon Dioxide 21.2 meq/L (21.0-32.0); Glucose,Random 94 mg/dL (74-106)
[2018-05-13 07:25] LABS: Alanine Aminotransferase 32 U/L (10-53); Aspartate Aminotransferase 17 U/L (15-37); Glomerular Filtration Rate 47 mL/min (>89)
[2018-05-13 07:28] LABS: Alkaline Phosphatase 77 U/L (45-117)
--- NOTE | 2018-05-13 09:19 | P.PNID ---
Subjective Remarks: Continues to run fevers- more continuous now PICC & Dialysis catheter removed C/o pain in hand Pain in hand more Antibiotics: Cefepime and Zyvox Lines: Left PICC line and RT IJ dialysis catheter removed Past Medical History: Past h/o renal failure Allergies/Adverse Reactions: Allergies No Known Allergies Allergy (Verified 04/28/18 11:45) Objective Vital Signs 05/12/18 10:25 05/12/18 12:00 05/12/18 16:00 Temperature 101.1 F H 98.5 F 99.9 F H Pulse Rate 87 72 71 Respiratory Rate 20 20 20 Blood Pressure 117/72 104/67 113/73 Pulse Oximetry 94 L 96 96 05/12/18 20:00 05/12/18 23:30 05/13/18 00:30 Temperature 100.8 F H 101.4 F H 100.8 F H Pulse Rate 76 83 78 Respiratory Rate 20 20 20 Blood Pressure 116/80 123/73 106/67 Pulse Oximetry 96 96 97 05/13/18 01:27 05/13/18 04:00 Temperature 100 F H Pulse Rate 72 Respiratory Rate 6 L 20 Blood Pressure 121/76 Pulse Oximetry 96 Intake & Output 05/12/18 05/13/18 05/13/18 18:59 06:59 18:59 Intake Total 801 / 801 1280 / 1280 Output Total 1100 / 1100 750 / 750 Balance -299 / -299 530 / 530 Weight 61.2 kg Intake: IV 100 / 100 Maxipime Inj 1,000 MG In NS Inj 100 / 100 100 ML @ 200 mls/hr IV.SIG DAILY@0800 [facility] Rx#:[id number] Oral 701 / 701 1280 / 1280 Output: Urine 1100 / 1100 750 / 750 Other: # Voids 350 Date of Last Bowel Movement 05/10/18 05/09/18 12:03 Blood - Peripheral Aerobic Blood Culture - Preliminary No growth in 3 days 05/09/18 12:03 Blood - Peripheral Anaerobic Blood Culture - Preliminary No growth in 3 days 05/09/18 10:43 Blood - Peripheral Aerobic Blood Culture - Preliminary No growth in 3 days 05/09/18 10:43 Blood - Peripheral Anaerobic Blood Culture - Preliminary No growth in 3 days 05/09/18 18:30 Clean Catch Urine Urine Culture - Final <10,000 cfu/mL gram negative rods - no further workup Lab - Hematology Results 05/13/18 07:00 CBC w Diff Auto diff final WBC 7.4 RBC 3.38 L Hgb 10.0 L Hct 30.6 L MCV 90.4 MCH 29.5 MCHC 32.6 RDW 13.5 Plt Count 230 D MPV 7.4 Neut % (Auto) 68.2 Lymph % (Auto) 18.2 [place] % (Auto) 10.7 H Eos % (Auto) 2.6 Baso % (Auto) 0.3 Neut # (Auto) 5.1 Lymph # (Auto) 1.3 [place] # (Auto) 0.8 Eos # (Auto) 0.2 Baso # (Auto) 0.0 WBC Differential . Differential Comment . Lab - Chemistry Results 05/13/18 07:00 Sodium 135 L Potassium 4.5 Chloride 105 Carbon Dioxide 21.2 Anion Gap 9 BUN 24 H Creatinine 1.30 H Estimated GFR 47 L Random Glucose 94 Calcium 9.3 Total Bilirubin 0.6 AST 17 ALT 32 Alkaline Phosphatase 77 Total Protein 9.0 H Albumin 4.4 Imaging: ITS Impressions Hand X-Ray 04/28/18 14:51 CONCLUSION: Negative examination Abdomen/Pelvis CT 05/01/18 00:00 CONCLUSION: 1. Nonspecific, nonobstructive bowel gas pattern which may represent a mild ileus or gastroenteritis. 2. Apparent gallbladder wall thickening or pericholecystic fluid which may be due to ascites. 3. Anasarca and small amount of ascites. 4. Small bilateral pleural effusion. 5. Infiltrate in both lung bases. Abdomen Ultrasound 05/04/18 00:00 CONCLUSION: 1. No evidence of gallstones in the gallbladder. However, there is thickening of the gallbladder wall at 1 cm with a small amount of pericholecystic fluid. This can be seen with either acute or chronic acalculous cholecystitis. This needs to be correlated patient's physical and clinical exam as well as laboratory values. 2. There is some increased echogenicity of the liver parenchyma suggestive of some fatty infiltration. 3. There is a small amount of ascites in the abdomen. This is insufficient for paracentesis. 4. There is evidence of bilateral pleural effusions. 5. Mild hepatomegaly and splenomegaly. Catheter Placement 05/05/18 08:00 CONCLUSION: Uncomplicated ultrasound and fluoroscopic guided central venous dialysis catheter placement as above. Bile Acid Absorption NM 05/06/18 00:00 CONCLUSION: 1. Normal gallbladder uptake. 2. Poor ejection fraction. Chest X-Ray 05/09/18 00:00 CONCLUSION: Mild interstitial edema. Dialysis catheter in good position. Physical Exam: Alert, tearful has chills No thrush Chest some rhonchi Heart soft systolic murmur Lines removed hand is healing Assessment and Plan (1) Abscess of thumb, left Status: Acute Code(s): L02.512 - Cutaneous abscess of left hand (2) Acute renal failure Status: Acute Code(s): N17.9 - Acute kidney failure, unspecified (3) Fever Status: Acute Code(s): R50.9 - Fever, unspecified - Plan Follow repeat cultures- so far negative HIV negative Continue the Zyvox Stop the Cefepime in case drug induced fever Continue Fluconazole 100 mg po dialy Check MR left hand with no contrast for osteo/ septic arthritis
[2018-05-13] MEDS: Lactobacillus Acidophilus/L. Spores Tablet PO SCH ×3 (09:50→18:44)
[2018-05-13] MEDS: Fluconazole 100 MG Tablet PO SCH (09:50)
[2018-05-13] MEDS: Ferrous Sulfate 325 MG Tablet PO SCH (09:50)
[2018-05-13] MEDS: Linezolid 600 MG Tablet PO SCH ×2 (09:50→20:27)
[2018-05-13] MEDS: Sodium Chloride 0.9% 2 ML Flush BID IV.FLUSH SCH ×2 (09:50→20:27)
--- NOTE | 2018-05-13 12:08 | P.PNIM ---
Subjective Interval history: f/u; fever/ left hand infection in no acute distress. looks a little more comfortable today. pain seems to be better. still febrile; Tmax 102.6. no other complaints. Physical Exam Vital signs: Vital Signs 05/12/18 16:00 05/12/18 20:00 05/12/18 23:30 Temperature 99.9 F H 100.8 F H 101.4 F H Pulse Rate 71 76 83 Respiratory Rate 20 20 20 Blood Pressure 113/73 116/80 123/73 Pulse Oximetry 96 96 96 05/13/18 00:30 05/13/18 01:27 05/13/18 04:00 Temperature 100.8 F H 100 F H Pulse Rate 78 72 Respiratory Rate 20 6 L 20 Blood Pressure 106/67 121/76 Pulse Oximetry 97 96 05/13/18 08:00 Temperature 102.6 F H Pulse Rate 87 Respiratory Rate 20 Blood Pressure 145/81 H Pulse Oximetry 95 Intake & Output 05/12/18 05/13/18 05/13/18 18:59 06:59 18:59 Intake Total 801 / 801 1280 / 1280 Output Total 1100 / 1100 750 / 750 Balance -299 / -299 530 / 530 Weight 61.2 kg Intake: IV 100 / 100 Maxipime Inj 1,000 MG In NS Inj 100 / 100 100 ML @ 200 mls/hr IV.SIG DAILY@0800 [facility] Rx#:[id number] Oral 701 / 701 1280 / 1280 Output: Urine 1100 / 1100 750 / 750 Other: # Voids 350 Date of Last Bowel Movement 05/10/18 05/10/18 - Constitutional no acute distress - Routine Respiratory Exam Present: CTA bilaterally - Routine Cardiovascular Exam Present: RRR - Routine Abdominal Exam Present: soft - Routine Extremities Exam Comments: left hand covered with clean dressing. - Routine Neurological Exam Present: alert, oriented X3 Results - Labs CBC & Chem 7: 05/13/18 07:00 05/13/18 07:00 Laboratory Results - last 24 hr 05/13/18 05/13/18 07:00 07:00 CBC w Diff Auto diff final WBC 7.4 RBC 3.38 L Hgb 10.0 L Hct 30.6 L MCV 90.4 MCH 29.5 MCHC 32.6 RDW 13.5 Plt Count 230 D MPV 7.4 Neut % (Auto) 68.2 Lymph % (Auto) 18.2 [place] % (Auto) 10.7 H Eos % (Auto) 2.6 Baso % (Auto) 0.3 Neut # (Auto) 5.1 Lymph # (Auto) 1.3 [place] # (Auto) 0.8 Eos # (Auto) 0.2 Baso # (Auto) 0.0 WBC Differential . Differential Comment . Sodium 135 L Potassium 4.5 Chloride 105 Carbon Dioxide 21.2 Anion Gap 9 BUN 24 H Creatinine 1.30 H Estimated GFR 47 L Random Glucose 94 Calcium 9.3 Total Bilirubin 0.6 AST 17 ALT 32 Alkaline Phosphatase 77 Total Protein 9.0 H Albumin 4.4 Microbiology 05/09/18 12:03 Blood - Peripheral Aerobic Blood Culture - Preliminary No growth in 4 days 05/09/18 12:03 Blood - Peripheral Anaerobic Blood Culture - Preliminary No growth in 4 days 05/09/18 10:43 Blood - Peripheral Aerobic Blood Culture - Preliminary No growth in 4 days 05/09/18 10:43 Blood - Peripheral Anaerobic Blood Culture - Preliminary No growth in 4 days - Procedures none Assessment and Plan - Assessment (1) Abscess of thumb, left Code(s): L02.512 - Cutaneous abscess of left hand Status: Acute - Plan Acute kidney injury ATN 2/2 Vancomycin Appreciate input from nephrology She had hemodialysis x1 on May 05, 2018; Renal indices improving Continue to monitor BUN and creatinine, and avoid all nephrotoxic drug Vancomycin d/steve Unspecified abdominal pain-improving Abdominal ultrasound noted Appreciate input from general surgery HIDA scan with normal gallbladder uptake However per Gen surgery , patient is currently a poor surgical candidate C. difficile PCR negative Hospital-acquired pneumonia treated with Cefepime- Cefepime was dc'ed on 05/13 for possible drug- fever Blood culture negative to date Appreciate input from infectious disease specialist Left hand cellulitis/Abscess Status post I&D by hand surgery Culture positive for MRSA Currently on Zyvox Appreciate input from infectious disease specialist MRI of the left hand ordered due to recurrent fever. Febrile episodes Repeat Blood culture NTD and UA negative 05/09/18 HIV negative Cefepime was dc'ed for possible drug-fever. ID ff Ascites with abnormal liver function tests hepatitis C positive Continue with Lasix Need outpatient follow-up with Hepatology Ileus-resolved Previous history of IVDU Extensively counseled against History of iron deficiency anemia Currently on iron sulfate Hep C positive; f/u as outpatient. DVT prophylaxis with SCD Discharge Planning: still febrile;not ready for discharge.
[2018-05-13] MEDS: Acetaminophen 325 MG Tablet PO PRN ×2 (12:38→20:26)
[2018-05-13] MEDS ORDERED: Ibuprofen 400 MG Tablet PO ONE (22:55)
[2018-05-14] MEDS: Sodium Chloride 0.9% 2 ML Flush BID IV.FLUSH SCH ×2 (08:26→21:20)
[2018-05-14] MEDS: Linezolid 600 MG Tablet PO SCH ×2 (08:26→21:19)
[2018-05-14] MEDS: Lactobacillus Acidophilus/L. Spores Tablet PO SCH ×3 (08:26→17:17)
[2018-05-14] MEDS: Ferrous Sulfate 325 MG Tablet PO SCH (08:26)
[2018-05-14] MEDS: Fluconazole 100 MG Tablet PO SCH (08:26)
--- NOTE | 2018-05-14 10:23 | P.PNID ---
Subjective Remarks: High grade fevers last night- patient now shows me right forearm which is swollen and tender New peripheral IV on left arm PICC & Dialysis catheter removed C/o pain in hand Antibiotics: Zyvox, Fluconazole Lines: Left PICC line and RT IJ dialysis catheter removed Past Medical History: Past h/o renal failure Allergies/Adverse Reactions: Allergies No Known Allergies Allergy (Verified 04/28/18 11:45) Objective Vital Signs 05/13/18 12:00 05/13/18 16:00 05/13/18 20:00 Temperature 102.3 F H 99.3 F 101.2 F H Pulse Rate 88 86 95 H Respiratory Rate 18 20 20 Blood Pressure 123/67 111/72 151/82 H Pulse Oximetry 96 98 98 05/13/18 22:30 05/14/18 00:15 05/14/18 05:08 Temperature 103.3 F H 101.8 F H 96.2 F L Pulse Rate 101 H 66 Respiratory Rate 20 20 Blood Pressure 138/76 85/61 L Pulse Oximetry 100 98 05/14/18 08:24 05/14/18 08:59 Temperature 96.5 F L Pulse Rate 54 L 60 Respiratory Rate Blood Pressure 87/52 L 112/58 L Pulse Oximetry 99 Intake & Output 05/13/18 05/14/18 05/14/18 18:59 06:59 18:59 Intake Total 720 / 720 960 / 960 Output Total 500 / 500 Balance 720 / 720 460 / 460 Weight 60.3 kg Intake: Oral 720 / 720 960 / 960 Output: Urine 500 / 500 Other: # Voids 4 Date of Last Bowel Movement 05/10/18 05/13/18 # Bowel Movements 1 2 05/09/18 12:03 Blood - Peripheral Aerobic Blood Culture - Preliminary No growth in 4 days 05/09/18 12:03 Blood - Peripheral Anaerobic Blood Culture - Preliminary No growth in 4 days 05/09/18 10:43 Blood - Peripheral Aerobic Blood Culture - Preliminary No growth in 4 days 05/09/18 10:43 Blood - Peripheral Anaerobic Blood Culture - Preliminary No growth in 4 days 05/09/18 18:30 Clean Catch Urine Urine Culture - Final <10,000 cfu/mL gram negative rods - no further workup Lab - Hematology Results 05/13/18 07:00 CBC w Diff Auto diff final WBC 7.4 RBC 3.38 L Hgb 10.0 L Hct 30.6 L MCV 90.4 MCH 29.5 MCHC 32.6 RDW 13.5 Plt Count 230 D MPV 7.4 Neut % (Auto) 68.2 Lymph % (Auto) 18.2 [place] % (Auto) 10.7 H Eos % (Auto) 2.6 Baso % (Auto) 0.3 Neut # (Auto) 5.1 Lymph # (Auto) 1.3 [place] # (Auto) 0.8 Eos # (Auto) 0.2 Baso # (Auto) 0.0 WBC Differential . Differential Comment . Lab - Chemistry Results 05/13/18 07:00 Sodium 135 L Potassium 4.5 Chloride 105 Carbon Dioxide 21.2 Anion Gap 9 BUN 24 H Creatinine 1.30 H Estimated GFR 47 L Random Glucose 94 Calcium 9.3 Total Bilirubin 0.6 AST 17 ALT 32 Alkaline Phosphatase 77 Total Protein 9.0 H Albumin 4.4 Imaging: ITS Impressions Hand X-Ray 04/28/18 14:51 CONCLUSION: Negative examination Abdomen/Pelvis CT 05/01/18 00:00 CONCLUSION: 1. Nonspecific, nonobstructive bowel gas pattern which may represent a mild ileus or gastroenteritis. 2. Apparent gallbladder wall thickening or pericholecystic fluid which may be due to ascites. 3. Anasarca and small amount of ascites. 4. Small bilateral pleural effusion. 5. Infiltrate in both lung bases. Abdomen Ultrasound 05/04/18 00:00 CONCLUSION: 1. No evidence of gallstones in the gallbladder. However, there is thickening of the gallbladder wall at 1 cm with a small amount of pericholecystic fluid. This can be seen with either acute or chronic acalculous cholecystitis. This needs to be correlated patient's physical and clinical exam as well as laboratory values. 2. There is some increased echogenicity of the liver parenchyma suggestive of some fatty infiltration. 3. There is a small amount of ascites in the abdomen. This is insufficient for paracentesis. 4. There is evidence of bilateral pleural effusions. 5. Mild hepatomegaly and splenomegaly. Catheter Placement 05/05/18 08:00 CONCLUSION: Uncomplicated ultrasound and fluoroscopic guided central venous dialysis catheter placement as above. Bile Acid Absorption NM 05/06/18 00:00 CONCLUSION: 1. Normal gallbladder uptake. 2. Poor ejection fraction. Chest X-Ray 05/09/18 00:00 CONCLUSION: Mild interstitial edema. Dialysis catheter in good position. Physical Exam: Alert, Oriented x 3 No thrush Chest Clear Heart soft systolic murmur Lines removed hand is healing but patient c/o pain on movement Right forearm with swelling and induration at previous IV site Assessment and Plan (1) Abscess of thumb, left Status: Acute Code(s): L02.512 - Cutaneous abscess of left hand (2) Acute renal failure Status: Acute Code(s): N17.9 - Acute kidney failure, unspecified (3) Fever Status: Acute Code(s): R50.9 - Fever, unspecified - Plan Follow repeat cultures- so far negative HIV negative Re check Blood culture High grade fever last night ? sec to developing abscess/ thrombophlebitis on rt fore arm Discussed with patient not to manipulate IV sites as they can become source of infection Continue the Zyvox Stop the Cefepime in case drug induced fever Continue Fluconazole 100 mg po dialy Check MR left hand with no contrast for osteo/ septic arthritis Check US soft tissue rt fore arm Add PO Cipro
--- NOTE | 2018-05-14 10:41 | P.PNIM ---
Subjective Interval history: f/u; fever in no acute distress. still febrile; T max 103. has some pain and swelling/ redness over the right forearm. Physical Exam Vital signs: Vital Signs 05/13/18 12:00 05/13/18 16:00 05/13/18 20:00 Temperature 102.3 F H 99.3 F 101.2 F H Pulse Rate 88 86 95 H Respiratory Rate 18 20 20 Blood Pressure 123/67 111/72 151/82 H Pulse Oximetry 96 98 98 05/13/18 22:30 05/14/18 00:15 05/14/18 05:08 Temperature 103.3 F H 101.8 F H 96.2 F L Pulse Rate 101 H 66 Respiratory Rate 20 20 Blood Pressure 138/76 85/61 L Pulse Oximetry 100 98 05/14/18 08:24 05/14/18 08:59 Temperature 96.5 F L Pulse Rate 54 L 60 Respiratory Rate Blood Pressure 87/52 L 112/58 L Pulse Oximetry 99 Intake & Output 05/13/18 05/14/18 05/14/18 18:59 06:59 18:59 Intake Total 720 / 720 960 / 960 Output Total 500 / 500 Balance 720 / 720 460 / 460 Weight 60.3 kg Intake: Oral 720 / 720 960 / 960 Output: Urine 500 / 500 Other: # Voids 4 Date of Last Bowel Movement 05/10/18 05/13/18 # Bowel Movements 1 2 - Constitutional no acute distress - Routine Respiratory Exam Present: CTA bilaterally - Routine Cardiovascular Exam Present: RRR - Routine Abdominal Exam Present: soft - Routine Extremities Exam Present: edema, tenderness (tenderness/edema and erythema over the right forearm.) - Routine Neurological Exam Present: alert, oriented X3 Results - Labs CBC & Chem 7: 05/13/18 07:00 05/13/18 07:00 Microbiology 05/09/18 12:03 Blood - Peripheral Aerobic Blood Culture - Preliminary No growth in 4 days 05/09/18 12:03 Blood - Peripheral Anaerobic Blood Culture - Preliminary No growth in 4 days 05/09/18 10:43 Blood - Peripheral Aerobic Blood Culture - Preliminary No growth in 4 days 05/09/18 10:43 Blood - Peripheral Anaerobic Blood Culture - Preliminary No growth in 4 days - Procedures none Assessment and Plan - Assessment (1) Abscess of thumb, left Code(s): L02.512 - Cutaneous abscess of left hand Status: Acute - Plan Acute kidney injury ATN 2/2 Vancomycin Appreciate input from nephrology She had hemodialysis x1 on May 05, 2018; Renal indices improving Continue to monitor BUN and creatinine, and avoid all nephrotoxic drug Vancomycin d/steve Unspecified abdominal pain-improving Abdominal ultrasound noted Appreciate input from general surgery HIDA scan with normal gallbladder uptake However per Gen surgery , patient is currently a poor surgical candidate C. difficile PCR negative Hospital-acquired pneumonia treated with Cefepime- Cefepime was dc'ed on 05/13 for possible drug- fever Blood culture negative to date Appreciate input from infectious disease specialist Left hand cellulitis/Abscess Status post I&D by hand surgery Culture positive for MRSA Currently on Zyvox Appreciate input from infectious disease specialist MRI of the left hand ordered due to recurrent fever. Febrile episodes with swelling/ erythema over the right forearm Repeat Blood culture NTD and UA negative 05/09/18 HIV negative Cefepime was dc'ed for possible drug-fever. continue with Zyvox- cipro was added. sonogram of the right forearm ID ff Ascites with abnormal liver function tests hepatitis C positive Continue with Lasix Need outpatient follow-up with Hepatology Ileus-resolved Previous history of IVDU Extensively counseled against History of iron deficiency anemia Currently on iron sulfate Hep C positive; f/u as outpatient. DVT prophylaxis with SCD Discussed Condition With: the patient and . Discharge Planning: still febrile;not ready for discharge.
--- NOTE | 2018-05-14 11:19 | US ---
EXAM DATE: 05/14/2018 12:00 AM EDT AGE/SEX: 37 years / Female INDICATIONS: Right forearm swelling, redness, and pain. Post IV site. CLINICAL DATA: This is the patient's initial encounter. Patient reports that signs and symptoms have been present for 3 days and indicates a pain score of 10/10. MEDICAL/SURGICAL HISTORY: . Fibromyalgia. RA. Tonsillectomy. Laparascopy. COMPARISON: No prior exams available for comparison. FINDINGS: Diffuse edematous change in the soft tissues of the right upper forearm. No evidence of discrete mass or collection. CONCLUSION: Soft tissue edema without discrete collection Electronically signed by: José Mandujano MD 05/14/2018 11:17 AM EDT
[2018-05-14] MEDS: Ciprofloxacin 500 MG Tablet PO SCH ×2 (12:08→21:19)
[2018-05-14] MEDS ORDERED: Gadobutrol PF 7.5 MMOL/7.5 ML Vial (for RAD) IV.SIG ONE (14:37)
--- NOTE | 2018-05-14 15:03 | MR ---
EXAM DATE: 05/14/2018 10:27 AM EDT AGE/SEX: 37 years / Female INDICATIONS: Osteomyelitis. Pain and swelling base of the first digit, and webbing between first and second metacarpals CLINICAL DATA: This is the patient's subsequent encounter. Patient reports that signs and symptoms h ave been present for 2 weeks and indicates a pain score of 3/10. MEDICAL/SURGICAL HISTORY: Rheumatoid arthritis. fibromyalgia Tonsillectomy. COMPARISON: No prior exams available for comparison. TECHNIQUE: Multiplanar, multisequence MRI examination was performed without contrast and after the i ntravenous administration of 6 ml Gadavist (gadobutrol) contrast as a single exam dose. FINDINGS: There is soft tissue edema and enhancement measuring up to about 2.5 cm in diameter around the proxim al left thumb metacarpophalangeal joint extending towards the thenar eminence. No loculated or draina ble fluid collections are seen to suggest abscess. There is no significant marrow signal abnormality or marrow enhancement just osteomyelitis. CONCLUSION: 1. Cellulitis around the proximal thumb and thenar eminence without evidence for loculated abscess o r osteomyelitis. Electronically signed by: Rudy Guidry MD 05/14/2018 3:02 PM EDT
--- NOTE | 2018-05-15 09:10 | P.PNIM ---
Subjective Interval history: f/u; fever/ hand infection in no acute distress. no fever today. has pain to the right forearm. Physical Exam Vital signs: Vital Signs 05/14/18 12:00 05/14/18 16:00 05/14/18 20:00 Temperature 96.2 F L 97.0 F L 96.7 F L Pulse Rate 64 68 77 Respiratory Rate 16 16 18 Blood Pressure 106/63 104/66 101/70 Pulse Oximetry 98 98 99 05/14/18 23:44 Temperature 98.8 F Pulse Rate 78 Respiratory Rate 18 Blood Pressure 116/69 Pulse Oximetry 98 Intake & Output 05/14/18 05/15/18 05/15/18 18:59 06:59 18:59 Intake Total 960 / 960 Output Total 650 / 650 Balance 960 / 960 -650 / -650 Weight 61.7 kg Intake: Oral 960 / 960 Output: Urine 650 / 650 Other: # Voids 6 Date of Last Bowel Movement 05/13/18 05/13/18 # Bowel Movements 0 - Constitutional no acute distress - Routine Respiratory Exam Present: CTA bilaterally - Routine Cardiovascular Exam Present: RRR - Routine Abdominal Exam Present: soft - Routine Extremities Exam Comments: right forearm is swollen with tenderness to touch. - Routine Neurological Exam Present: alert, oriented X3 Results - Labs CBC & Chem 7: 05/13/18 07:00 05/13/18 07:00 Microbiology 05/09/18 12:03 Blood - Peripheral Aerobic Blood Culture - Final No growth in 5 days 05/09/18 12:03 Blood - Peripheral Anaerobic Blood Culture - Final No growth in 5 days 05/09/18 10:43 Blood - Peripheral Aerobic Blood Culture - Final No growth in 5 days 05/09/18 10:43 Blood - Peripheral Anaerobic Blood Culture - Final No growth in 5 days - Imaging Impressions Hand MRI 05/14/18 00:00 CONCLUSION: 1. Cellulitis around the proximal thumb and thenar eminence without evidence for loculated abscess or osteomyelitis. Soft Tissue Ultrasound 05/14/18 00:00 CONCLUSION: Soft tissue edema without discrete collection - Procedures none Assessment and Plan - Assessment (1) Abscess of thumb, left Code(s): L02.512 - Cutaneous abscess of left hand Status: Acute - Plan Acute kidney injury- resolving. ATN 2/2 Vancomycin Appreciate input from nephrology She had hemodialysis x1 on May 05, 2018; Renal indices improving Continue to monitor BUN and creatinine, and avoid all nephrotoxic drug Vancomycin d/steve Unspecified abdominal pain-improving Abdominal ultrasound noted Appreciate input from general surgery HIDA scan with normal gallbladder uptake However per Gen surgery , patient is currently a poor surgical candidate C. difficile PCR negative Hospital-acquired pneumonia treated with Cefepime- Cefepime was dc'ed on 05/13 for possible drug- fever Appreciate input from infectious disease specialist Left hand cellulitis/Abscess Status post I&D by hand surgery Culture positive for MRSA MRI left hand with cellulitis around the thumb with no fluid collection. Currently on Zyvox and Cipro Appreciate input from infectious disease specialist Febrile episodes with swelling/ erythema over the right forearm Repeat Blood culture from 05/14 pending. HIV negative Cefepime was dc'ed for possible drug-fever. continue with Zyvox- cipro was added. sonogram of the right forearm with no fluid collection or abscess ID ff Ascites with abnormal liver function tests hepatitis C positive Continue with Lasix Need outpatient follow-up with Hepatology Ileus-resolved Previous history of IVDU Extensively counseled against History of iron deficiency anemia Currently on iron sulfate DVT prophylaxis with SCD Discharge Planning: when cleared by ID.
[2018-05-15] MEDS: Ferrous Sulfate 325 MG Tablet PO SCH (10:05)
[2018-05-15] MEDS: Linezolid 600 MG Tablet PO SCH ×2 (10:05→21:53)
[2018-05-15] MEDS: Ciprofloxacin 500 MG Tablet PO SCH ×2 (10:05→21:53)
[2018-05-15] MEDS: Fluconazole 100 MG Tablet PO SCH (10:05)
[2018-05-15] MEDS: Lactobacillus Acidophilus/L. Spores Tablet PO SCH ×3 (10:05→17:23)
[2018-05-15 10:10] LABS: Baso # (Auto) 0.1 th/mm3 (0.0-0.2); Baso % (Auto) 0.7 % (0.0-2.0); Eos # (Auto) 0.3 th/mm3 (0.0-0.4); Eos % (Auto) 3.3 % (0.0-4.0); Hematocrit 28.5 % (35.0-46.0); Hemoglobin 9.2 gm/dL (11.6-15.3); Lymph # (Auto) 1.7 th/mm3 (1.0-4.8); Mean Corpuscular HGB Conc 32.3 % (32.0-36.0); Mean Corpuscular Volume 89.7 fL (80.0-100.0); Mean Platelet Volume 8.4 fL (7.0-11.0); Mono # (Auto) 0.8 th/mm3 (0.0-0.9); Mono % (Auto) 10.3 % (0.0-8.0); Neut % (Auto) 63.7 % (16.0-70.0); Platelet Count 213 th/mm3 (150-450); Red Blood Count 3.17 mil/mm3 (4.00-5.30); Red Cell Distribution Width 13.7 % (11.6-17.2); White Blood Count 7.9 th/mm3 (4.0-11.0)
[2018-05-15 10:24] LABS: Potassium 4.3 meq/L (3.5-5.1)
[2018-05-15 10:27] LABS: Calcium 9.1 mg/dL (8.5-10.1); Carbon Dioxide 21.6 meq/L (21.0-32.0)
[2018-05-15] MEDS: Sodium Chloride 0.9% 2 ML Flush BID IV.FLUSH SCH ×2 (11:01→21:04)
[2018-05-16] MEDS: Acetaminophen 325 MG Tablet PO PRN ×2 (01:57→18:47)
[2018-05-16] MEDS: Linezolid 600 MG Tablet PO SCH ×2 (09:34→20:24)
[2018-05-16] MEDS: Ferrous Sulfate 325 MG Tablet PO SCH (09:34)
[2018-05-16] MEDS: Fluconazole 100 MG Tablet PO SCH (09:34)
[2018-05-16] MEDS: Lactobacillus Acidophilus/L. Spores Tablet PO SCH ×3 (09:34→17:31)
[2018-05-16] MEDS: Ciprofloxacin 500 MG Tablet PO SCH ×2 (09:34→20:24)
[2018-05-16] MEDS: Sodium Chloride 0.9% 2 ML Flush BID IV.FLUSH SCH (09:38)
--- NOTE | 2018-05-16 10:06 | P.PNIM ---
Subjective Interval history: f/u; fever in no acute distress. still with on and off fever; T max 102.2. pain and swelling of the right forearm is better. no new complaints. Physical Exam Vital signs: Vital Signs 05/15/18 12:00 05/15/18 14:51 05/15/18 16:00 Temperature 99 F 98.2 F Pulse Rate 72 74 Respiratory Rate 20 20 20 Blood Pressure 124/83 142/83 H Pulse Oximetry 98 98 05/15/18 20:00 05/16/18 00:00 05/16/18 04:00 Temperature 100.9 F H 102.2 F H 97.9 F Pulse Rate 78 82 Respiratory Rate 20 22 Blood Pressure 132/77 107/63 Pulse Oximetry 100 97 05/16/18 09:34 Temperature Pulse Rate Respiratory Rate 20 Blood Pressure Pulse Oximetry Intake & Output 05/15/18 05/16/18 05/16/18 18:59 06:59 18:59 Intake Total 480 / 480 480 / 480 Output Total 450 / 450 Balance 30 / 30 480 / 480 Weight 56.8 kg Intake: Oral 480 / 480 480 / 480 Output: Urine 450 / 450 Other: # Voids 3 Date of Last Bowel Movement 05/13/18 05/13/18 - Constitutional no acute distress - Routine Respiratory Exam Present: CTA bilaterally - Routine Cardiovascular Exam Present: RRR - Routine Abdominal Exam Present: soft - Routine Extremities Exam Comments: swelling/ erythema/ tenderness of the right forearm is better. - Routine Neurological Exam Present: alert, oriented X3 Results - Labs CBC & Chem 7: 05/15/18 09:35 05/15/18 09:35 Laboratory Results - last 24 hr 05/15/18 05/15/18 09:35 09:35 CBC w Diff Auto diff final WBC 7.9 RBC 3.17 L Hgb 9.2 L Hct 28.5 L MCV 89.7 MCH 29.0 MCHC 32.3 RDW 13.7 Plt Count 213 MPV 8.4 Neut % (Auto) 63.7 Lymph % (Auto) 22.0 [place] % (Auto) 10.3 H Eos % (Auto) 3.3 Baso % (Auto) 0.7 Neut # (Auto) 5.0 Lymph # (Auto) 1.7 [place] # (Auto) 0.8 Eos # (Auto) 0.3 Baso # (Auto) 0.1 WBC Differential . Differential Comment . Sodium 137 Potassium 4.3 Chloride 105 Carbon Dioxide 21.6 Anion Gap 10 BUN 27 H Creatinine 1.40 H Estimated GFR 43 L Random Glucose 117 H Calcium 9.1 Microbiology 05/14/18 12:45 Blood - Peripheral Aerobic Blood Culture - Preliminary No growth in 1 day 05/14/18 12:45 Blood - Peripheral Anaerobic Blood Culture - Preliminary No growth in 1 day - Procedures none Assessment and Plan - Assessment (1) Abscess of thumb, left Code(s): L02.512 - Cutaneous abscess of left hand Status: Acute - Plan Acute kidney injury- resolved and renal function stable now. ATN 2/2 Vancomycin Appreciate input from nephrology She had hemodialysis x1 on May 05, 2018; Renal indices improving Continue to monitor BUN and creatinine, and avoid all nephrotoxic drug Unspecified abdominal pain-improving Abdominal ultrasound noted Appreciate input from general surgery HIDA scan with normal gallbladder uptake However per Gen surgery , patient is currently a poor surgical candidate C. difficile PCR negative Hospital-acquired pneumonia treated with Cefepime- Cefepime was dc'ed on 05/13 for possible drug- fever Appreciate input from infectious disease specialist Left hand cellulitis/Abscess Status post I&D by hand surgery Culture positive for MRSA MRI left hand with cellulitis around the thumb with no fluid collection. Currently on Zyvox and Cipro Appreciate input from infectious disease specialist Febrile episodes with swelling/ erythema over the right forearm Repeat Blood culture from 05/14 negative so far. HIV negative Cefepime was dc'ed for possible drug-fever. continue with Zyvox- cipro was added. sonogram of the right forearm with no fluid collection or abscess will check venous doppler of the right upper extremity. ID ff Ascites with abnormal liver function tests hepatitis C positive Continue with Lasix Need outpatient follow-up with Hepatology Ileus-resolved Previous history of IVDU Extensively counseled against History of iron deficiency anemia Currently on iron sulfate DVT prophylaxis with SCD Discharge Planning: when cleared by ID.
--- NOTE | 2018-05-16 15:08 | US ---
EXAM DATE: 05/16/2018 12:00 AM EDT AGE/SEX: 37 years / Female INDICATIONS: Right arm pain. CLINICAL DATA: This is the patient's initial encounter. Patient reports that signs and symptoms have been present for 4 - 6 days and indicates a pain score of 10/10. MEDICAL/SURGICAL HISTORY: Rheumatoid arthritis. Fibromyalgia. Tonsillectomy. Laparoscopy. Wis dom teeth extraction. COMPARISON: No prior exams available for comparison. FINDINGS: The vessels are compressible and augmentation response is documented. No filling defects a re seen. The flow is phasic with respiration. Other: None. CONCLUSION: 1. No sonographic evidence for right upper extremity DVT. Electronically signed by: Davion White MD 05/16/2018 3:07 PM EDT
--- NOTE | 2018-05-16 17:50 | P.PNID ---
Subjective Remarks: low grade fevers but improving slowly Antibiotics: Zyvox, Fluconazole Lines: none Past Medical History: Past h/o renal failure Allergies/Adverse Reactions: Allergies No Known Allergies Allergy (Verified 04/28/18 11:45) Objective Vital Signs 05/15/18 20:00 05/16/18 00:00 05/16/18 04:00 Temperature 100.9 F H 102.2 F H 97.9 F Pulse Rate 78 82 Respiratory Rate 20 22 Blood Pressure 132/77 107/63 Pulse Oximetry 100 97 05/16/18 08:00 05/16/18 09:34 05/16/18 12:00 Temperature 100.3 F H 100.9 F H Pulse Rate 82 87 Respiratory Rate 20 20 20 Blood Pressure 111/79 115/75 Pulse Oximetry 98 97 05/16/18 15:59 05/16/18 16:14 05/16/18 17:29 Temperature 100.6 F H Pulse Rate 90 Respiratory Rate 20 20 20 Blood Pressure 108/71 Pulse Oximetry 97 Intake & Output 05/15/18 05/16/18 05/16/18 18:59 06:59 18:59 Intake Total 480 / 480 480 / 480 Output Total 450 / 450 Balance 30 / 30 480 / 480 Weight 56.8 kg Intake: Oral 480 / 480 480 / 480 Output: Urine 450 / 450 Other: # Voids 3 Date of Last Bowel Movement 05/13/18 05/13/18 05/14/18 12:45 Blood - Peripheral Aerobic Blood Culture - Preliminary No growth in 2 days 05/14/18 12:45 Blood - Peripheral Anaerobic Blood Culture - Preliminary No growth in 2 days 05/09/18 12:03 Blood - Peripheral Aerobic Blood Culture - Final No growth in 5 days 05/09/18 12:03 Blood - Peripheral Anaerobic Blood Culture - Final No growth in 5 days 05/09/18 10:43 Blood - Peripheral Aerobic Blood Culture - Final No growth in 5 days 05/09/18 10:43 Blood - Peripheral Anaerobic Blood Culture - Final No growth in 5 days Lab - Hematology Results 05/15/18 09:35 CBC w Diff Auto diff final WBC 7.9 RBC 3.17 L Hgb 9.2 L Hct 28.5 L MCV 89.7 MCH 29.0 MCHC 32.3 RDW 13.7 Plt Count 213 MPV 8.4 Neut % (Auto) 63.7 Lymph % (Auto) 22.0 [place] % (Auto) 10.3 H Eos % (Auto) 3.3 Baso % (Auto) 0.7 Neut # (Auto) 5.0 Lymph # (Auto) 1.7 [place] # (Auto) 0.8 Eos # (Auto) 0.3 Baso # (Auto) 0.1 WBC Differential . Differential Comment . Lab - Chemistry Results 05/15/18 09:35 Sodium 137 Potassium 4.3 Chloride 105 Carbon Dioxide 21.6 Anion Gap 10 BUN 27 H Creatinine 1.40 H Estimated GFR 43 L Random Glucose 117 H Calcium 9.1 Imaging: ITS Impressions Hand X-Ray 04/28/18 14:51 CONCLUSION: Negative examination Abdomen/Pelvis CT 05/01/18 00:00 CONCLUSION: 1. Nonspecific, nonobstructive bowel gas pattern which may represent a mild ileus or gastroenteritis. 2. Apparent gallbladder wall thickening or pericholecystic fluid which may be due to ascites. 3. Anasarca and small amount of ascites. 4. Small bilateral pleural effusion. 5. Infiltrate in both lung bases. Abdomen Ultrasound 05/04/18 00:00 CONCLUSION: 1. No evidence of gallstones in the gallbladder. However, there is thickening of the gallbladder wall at 1 cm with a small amount of pericholecystic fluid. This can be seen with either acute or chronic acalculous cholecystitis. This needs to be correlated patient's physical and clinical exam as well as laboratory values. 2. There is some increased echogenicity of the liver parenchyma suggestive of some fatty infiltration. 3. There is a small amount of ascites in the abdomen. This is insufficient for paracentesis. 4. There is evidence of bilateral pleural effusions. 5. Mild hepatomegaly and splenomegaly. Catheter Placement 05/05/18 08:00 CONCLUSION: Uncomplicated ultrasound and fluoroscopic guided central venous dialysis catheter placement as above. Bile Acid Absorption NM 05/06/18 00:00 CONCLUSION: 1. Normal gallbladder uptake. 2. Poor ejection fraction. Chest X-Ray 05/09/18 00:00 CONCLUSION: Mild interstitial edema. Dialysis catheter in good position. Hand MRI 05/14/18 00:00 CONCLUSION: 1. Cellulitis around the proximal thumb and thenar eminence without evidence for loculated abscess or osteomyelitis. Soft Tissue Ultrasound 05/14/18 00:00 CONCLUSION: Soft tissue edema without discrete collection Venous Doppler Study 05/16/18 00:00 CONCLUSION: 1. No sonographic evidence for right upper extremity DVT. Physical Exam: Alert, Oriented x 3 No thrush Chest Clear Heart soft systolic murmur Lines removed hand is healing but patient c/o pain on movement Right forearm with swelling and induration at previous IV site Assessment and Plan - Plan clinically stable on zyvox / cipro/ fluconazole fevers are better may be able to dc soon fu in am
--- NOTE | 2018-05-17 09:07 | P.PNIM ---
Subjective Interval history: f/u; fever/ left hand infection in no acute distress. but complaining of pain and swelling of the left arm. Tmax 100.9. Physical Exam Vital signs: Vital Signs 05/16/18 09:34 05/16/18 12:00 05/16/18 15:59 Temperature 100.9 F H 100.6 F H Pulse Rate 87 90 Respiratory Rate 20 20 20 Blood Pressure 115/75 108/71 Pulse Oximetry 97 97 05/16/18 16:14 05/16/18 17:29 05/16/18 20:00 Temperature 96.8 F L Pulse Rate 74 Respiratory Rate 20 20 20 Blood Pressure 104/69 Pulse Oximetry 100 05/17/18 00:00 05/17/18 04:00 Temperature 99.7 F H 100.2 F H Pulse Rate 85 Respiratory Rate 20 Blood Pressure 106/49 L Pulse Oximetry 96 Intake & Output 05/16/18 05/17/18 05/17/18 18:59 06:59 18:59 Intake Total 480 / 480 720 / 720 Output Total 800 / 800 Balance -320 / -320 720 / 720 Weight 56.3 kg Intake: Oral 480 / 480 720 / 720 Output: Urine 800 / 800 Other: # Voids 3 Date of Last Bowel Movement 05/13/18 - Constitutional no acute distress - Routine Respiratory Exam Present: CTA bilaterally - Routine Cardiovascular Exam Present: RRR - Routine Abdominal Exam Present: soft - Routine Extremities Exam Comments: left arm is swollen and tender to touch. - Routine Neurological Exam Present: alert, oriented X3 Results - Labs CBC & Chem 7: 05/15/18 09:35 05/17/18 06:35 Laboratory Results - last 24 hr 05/17/18 06:35 Creatinine 1.20 H Estimated GFR 51 L Microbiology 05/14/18 12:45 Blood - Peripheral Aerobic Blood Culture - Preliminary No growth in 2 days 05/14/18 12:45 Blood - Peripheral Anaerobic Blood Culture - Preliminary No growth in 2 days - Imaging Impressions Venous Doppler Study 05/16/18 00:00 CONCLUSION: 1. No sonographic evidence for right upper extremity DVT. - Procedures none Assessment and Plan - Assessment (1) Abscess of thumb, left Code(s): L02.512 - Cutaneous abscess of left hand Status: Acute - Plan Acute kidney injury- resolved and renal function stable now. ATN 2/2 Vancomycin Appreciate input from nephrology She had hemodialysis x1 on May 05, 2018; Renal indices improving Continue to monitor BUN and creatinine, and avoid all nephrotoxic drug Unspecified abdominal pain-improving Abdominal ultrasound noted Appreciate input from general surgery HIDA scan with normal gallbladder uptake However per Gen surgery , patient is currently a poor surgical candidate C. difficile PCR negative Hospital-acquired pneumonia treated with Cefepime- Cefepime was dc'ed on 05/13 for possible drug- fever Appreciate input from infectious disease specialist Left hand cellulitis/Abscess Status post I&D by hand surgery Culture positive for MRSA MRI left hand with cellulitis around the thumb with no fluid collection. Currently on Zyvox and Cipro Appreciate input from infectious disease specialist Febrile episodes with swelling/ erythema over the right forearm and left arm Repeat Blood culture from 05/14 negative so far. HIV negative Cefepime was dc'ed for possible drug-fever. continue with Zyvox- cipro was added. sonogram of the right forearm with no fluid collection or abscess venous doppler of the right upper extremity with no DVT. will check venous doppler of the left arm. ID ff Ascites with abnormal liver function tests hepatitis C positive Continue with Lasix Need outpatient follow-up with Hepatology Ileus-resolved Previous history of IVDU Extensively counseled against History of iron deficiency anemia Currently on iron sulfate DVT prophylaxis with SCD Discharge Planning: when cleared by ID- awaiting venous doppler of the left arm.
--- NOTE | 2018-05-17 09:44 | P.PNID ---
Subjective Remarks: low grade fevers but improving slowly Left arm where IV site was swollen and red Antibiotics: Zyvox, Fluconazole, Doxy and Cipro Lines: none Past Medical History: Past h/o renal failure Allergies/Adverse Reactions: Allergies No Known Allergies Allergy (Verified 04/28/18 11:45) Objective Vital Signs 05/16/18 12:00 05/16/18 15:59 05/16/18 16:14 Temperature 100.9 F H 100.6 F H Pulse Rate 87 90 Respiratory Rate 20 20 20 Blood Pressure 115/75 108/71 Pulse Oximetry 97 97 05/16/18 17:29 05/16/18 20:00 05/17/18 00:00 Temperature 96.8 F L 99.7 F H Pulse Rate 74 85 Respiratory Rate 20 20 20 Blood Pressure 104/69 106/49 L Pulse Oximetry 100 96 05/17/18 04:00 05/17/18 08:00 Temperature 100.2 F H 100.6 F H Pulse Rate 87 Respiratory Rate 18 Blood Pressure 115/59 L Pulse Oximetry 97 Intake & Output 05/16/18 05/17/18 05/17/18 18:59 06:59 18:59 Intake Total 480 / 480 720 / 720 Output Total 800 / 800 Balance -320 / -320 720 / 720 Weight 56.3 kg Intake: Oral 480 / 480 720 / 720 Output: Urine 800 / 800 Other: # Voids 3 Date of Last Bowel Movement 05/13/18 05/13/18 05/14/18 12:45 Blood - Peripheral Aerobic Blood Culture - Preliminary No growth in 2 days 05/14/18 12:45 Blood - Peripheral Anaerobic Blood Culture - Preliminary No growth in 2 days 05/09/18 12:03 Blood - Peripheral Aerobic Blood Culture - Final No growth in 5 days 05/09/18 12:03 Blood - Peripheral Anaerobic Blood Culture - Final No growth in 5 days 05/09/18 10:43 Blood - Peripheral Aerobic Blood Culture - Final No growth in 5 days 05/09/18 10:43 Blood - Peripheral Anaerobic Blood Culture - Final No growth in 5 days Lab - Hematology Results 05/15/18 09:35 CBC w Diff Auto diff final WBC 7.9 RBC 3.17 L Hgb 9.2 L Hct 28.5 L MCV 89.7 MCH 29.0 MCHC 32.3 RDW 13.7 Plt Count 213 MPV 8.4 Neut % (Auto) 63.7 Lymph % (Auto) 22.0 [place] % (Auto) 10.3 H Eos % (Auto) 3.3 Baso % (Auto) 0.7 Neut # (Auto) 5.0 Lymph # (Auto) 1.7 [place] # (Auto) 0.8 Eos # (Auto) 0.3 Baso # (Auto) 0.1 WBC Differential . Differential Comment . Lab - Chemistry Results 05/15/18 05/17/18 09:35 06:35 Sodium 137 Potassium 4.3 Chloride 105 Carbon Dioxide 21.6 Anion Gap 10 BUN 27 H Creatinine 1.40 H 1.20 H Estimated GFR 43 L 51 L Random Glucose 117 H Calcium 9.1 Imaging: ITS Impressions Hand X-Ray 04/28/18 14:51 CONCLUSION: Negative examination Abdomen/Pelvis CT 05/01/18 00:00 CONCLUSION: 1. Nonspecific, nonobstructive bowel gas pattern which may represent a mild ileus or gastroenteritis. 2. Apparent gallbladder wall thickening or pericholecystic fluid which may be due to ascites. 3. Anasarca and small amount of ascites. 4. Small bilateral pleural effusion. 5. Infiltrate in both lung bases. Abdomen Ultrasound 05/04/18 00:00 CONCLUSION: 1. No evidence of gallstones in the gallbladder. However, there is thickening of the gallbladder wall at 1 cm with a small amount of pericholecystic fluid. This can be seen with either acute or chronic acalculous cholecystitis. This needs to be correlated patient's physical and clinical exam as well as laboratory values. 2. There is some increased echogenicity of the liver parenchyma suggestive of some fatty infiltration. 3. There is a small amount of ascites in the abdomen. This is insufficient for paracentesis. 4. There is evidence of bilateral pleural effusions. 5. Mild hepatomegaly and splenomegaly. Catheter Placement 05/05/18 08:00 CONCLUSION: Uncomplicated ultrasound and fluoroscopic guided central venous dialysis catheter placement as above. Bile Acid Absorption NM 05/06/18 00:00 CONCLUSION: 1. Normal gallbladder uptake. 2. Poor ejection fraction. Chest X-Ray 05/09/18 00:00 CONCLUSION: Mild interstitial edema. Dialysis catheter in good position. Hand MRI 05/14/18 00:00 CONCLUSION: 1. Cellulitis around the proximal thumb and thenar eminence without evidence for loculated abscess or osteomyelitis. Soft Tissue Ultrasound 05/14/18 00:00 CONCLUSION: Soft tissue edema without discrete collection Venous Doppler Study 05/16/18 00:00 CONCLUSION: 1. No sonographic evidence for right upper extremity DVT. Physical Exam: Alert, Oriented x 3 No thrush Chest Clear Heart soft systolic murmur Lines removed hand is healing but patient c/o pain on movement Right forearm with swelling and induration at previous IV site- improved Now left arm with swelling and redness Assessment and Plan (1) Abscess of thumb, left Status: Acute Code(s): L02.512 - Cutaneous abscess of left hand (2) Acute renal failure Status: Acute Code(s): N17.9 - Acute kidney failure, unspecified (3) Fever Status: Acute Code(s): R50.9 - Fever, unspecified - Plan Fevers likley fro recurrent thrombophlebitis at IV sites so will avoid new IV line On PO Zyvox, Cipro, Doxy and Fluconazole Check US left arm If repeat blood cultures remain negative & US ok - should be able to send patient home on PO Cipro and Doxy
[2018-05-17] MEDS: Fluconazole 100 MG Tablet PO SCH (09:45)
[2018-05-17] MEDS: Lactobacillus Acidophilus/L. Spores Tablet PO SCH ×3 (09:45→18:16)
[2018-05-17] MEDS: Linezolid 600 MG Tablet PO SCH ×2 (09:45→23:10)
[2018-05-17] MEDS: Ferrous Sulfate 325 MG Tablet PO SCH (09:46)
[2018-05-17] MEDS: Ciprofloxacin 500 MG Tablet PO SCH ×2 (09:46→23:10)
--- NOTE | 2018-05-17 16:06 | US ---
EXAM DATE: 05/17/2018 12:00 AM EDT AGE/SEX: 37 years / Female INDICATIONS: Thrombosis. Pain and swelling. Status post I&D left hand. CLINICAL DATA: This is the patient's subsequent encounter. Patient reports that signs and symptoms h ave been present for 3 days and indicates a pain score of 10/10. MEDICAL/SURGICAL HISTORY: . Rheumatoid arthritis. Fibromyalgia. . Tonsillectomy. Laparoscopy. [place] teeth extraction. COMPARISON: No prior exams available for comparison. FINDINGS: There is a superficial venous occlusive thrombosis involving the left basilic vein, proxim al to distal. The deep veins including the internal jugular, subclavian, axillary and brachial veins are patent. Cephalic vein is also patent. Other: None. CONCLUSION: 1. Positive for occlusive superficial thrombosis in the basilic vein. Deep veins are patent. Electronically signed by: Rudy Guidry MD 05/17/2018 4:05 PM EDT
[2018-05-18] MEDS: Ciprofloxacin 500 MG Tablet PO SCH ×2 (08:47→22:16)
[2018-05-18] MEDS: Ferrous Sulfate 325 MG Tablet PO SCH (08:47)
[2018-05-18] MEDS: Fluconazole 100 MG Tablet PO SCH (08:47)
[2018-05-18] MEDS: Linezolid 600 MG Tablet PO SCH ×2 (08:47→22:16)
[2018-05-18] MEDS: Lactobacillus Acidophilus/L. Spores Tablet PO SCH ×3 (08:47→17:23)
--- NOTE | 2018-05-18 10:39 | P.PNIM ---
Subjective Interval history: f/u; fever in no acute distress. but uncomfortable with the pain left arm. T max 100.6. Physical Exam Vital signs: Vital Signs 05/17/18 12:00 05/17/18 15:56 05/17/18 19:35 Temperature 100.2 F H 100.5 F H Pulse Rate 82 82 Respiratory Rate Blood Pressure 103/59 L 100/55 L Pulse Oximetry 97 98 05/17/18 20:00 05/18/18 00:00 05/18/18 09:49 Temperature 99.7 F H 100.6 F H 99.1 F Pulse Rate 78 84 87 Respiratory Rate Blood Pressure 96/66 L 111/61 95/60 L Pulse Oximetry 98 98 99 Intake & Output 05/17/18 05/18/18 05/18/18 18:59 06:59 18:59 Intake Total 480 / 480 Output Total 650 / 650 Balance -170 / -170 Weight 63.2 kg Intake: Oral 480 / 480 Output: Urine 650 / 650 Other: Date of Last Bowel Movement 05/13/18 05/13/18 05/13/18 - Constitutional no acute distress - Routine Respiratory Exam Present: CTA bilaterally - Routine Cardiovascular Exam Present: RRR - Routine Abdominal Exam Present: soft - Routine Extremities Exam Comments: left arm is swollen, tender. - Routine Neurological Exam Present: alert, oriented X3 Results - Labs CBC & Chem 7: 05/15/18 09:35 05/17/18 06:35 Microbiology 05/14/18 12:45 Blood - Peripheral Aerobic Blood Culture - Preliminary No growth in 3 days 05/14/18 12:45 Blood - Peripheral Anaerobic Blood Culture - Preliminary No growth in 3 days - Imaging Impressions Venous Doppler Study 05/17/18 00:00 CONCLUSION: 1. Positive for occlusive superficial thrombosis in the basilic vein. Deep veins are patent. - Procedures none Assessment and Plan - Assessment (1) Abscess of thumb, left Code(s): L02.512 - Cutaneous abscess of left hand Status: Acute - Plan Acute kidney injury- resolved and renal function stable now. ATN 2/2 Vancomycin Appreciate input from nephrology She had hemodialysis x1 on May 05, 2018; Renal indices improving Continue to monitor BUN and creatinine, and avoid all nephrotoxic drug Unspecified abdominal pain-improving Abdominal ultrasound noted Appreciate input from general surgery HIDA scan with normal gallbladder uptake However per Gen surgery , patient is currently a poor surgical candidate C. difficile PCR negative Hospital-acquired pneumonia treated with Cefepime- Cefepime was dc'ed on 05/13 for possible drug- fever Appreciate input from infectious disease specialist Left hand cellulitis/Abscess Status post I&D by hand surgery Culture positive for MRSA MRI left hand with cellulitis around the thumb with no fluid collection. Currently on Zyvox and Cipro Appreciate input from infectious disease specialist Febrile episodes with swelling/ erythema over the right forearm and left arm- due to superficial phlebitis. Repeat Blood culture from 05/14 negative so far. HIV negative Cefepime was dc'ed for possible drug-fever. continue with Zyvox- cipro was added. sonogram of the right forearm with no fluid collection or abscess venous doppler of the right upper extremity with no DVT. will check venous doppler of the left arm with superficial phlebitis. ID ff Ascites with abnormal liver function tests hepatitis C positive Continue with Lasix Need outpatient follow-up with Hepatology Ileus-resolved Previous history of IVDU Extensively counseled against History of iron deficiency anemia Currently on iron sulfate DVT prophylaxis with SCD Discharge Planning: dc home tomorrow when pain and temps better.
[2018-05-19] MEDS: Linezolid 600 MG Tablet PO SCH (08:22)
[2018-05-19] MEDS: Ferrous Sulfate 325 MG Tablet PO SCH (08:22)
[2018-05-19] MEDS: Lactobacillus Acidophilus/L. Spores Tablet PO SCH ×2 (08:22→14:07)
[2018-05-19] MEDS: Ciprofloxacin 500 MG Tablet PO SCH (08:22)
[2018-05-19] MEDS: Fluconazole 100 MG Tablet PO SCH (08:22)
--- NOTE | 2018-05-19 11:06 | P.PNIM ---
Subjective Interval history: f/u; fever/ phlebitis in no acute distress. temps are better. although still complaining of pain to the left arm, it seems to be improving. Physical Exam Vital signs: Vital Signs 05/18/18 11:35 05/18/18 16:00 05/18/18 20:00 Temperature 99 F 98.4 F 99.1 F Pulse Rate 75 75 80 Respiratory Rate 12 18 Blood Pressure 97/62 L 110/63 101/56 L Pulse Oximetry 18 L 98 94 L 05/19/18 00:00 05/19/18 01:34 05/19/18 05:39 Temperature 99.3 F Pulse Rate 72 Respiratory Rate 18 16 18 Blood Pressure 106/58 L Pulse Oximetry 99 05/19/18 08:00 Temperature 98.6 F Pulse Rate 73 Respiratory Rate 18 Blood Pressure 98/60 L Pulse Oximetry 97 Intake & Output 05/18/18 05/19/18 05/19/18 18:59 06:59 18:59 Intake Total 640 / 640 Output Total 750 / 750 Balance -110 / -110 Weight 59.5 kg Intake: Oral 640 / 640 Output: Urine 750 / 750 Other: # Voids 1 Date of Last Bowel Movement 05/13/18 05/17/18 - Constitutional no acute distress - Routine Respiratory Exam Present: CTA bilaterally - Routine Cardiovascular Exam Present: RRR - Routine Abdominal Exam Present: soft - Routine Extremities Exam Present: edema (edema/ erythema over the left arm seems to be improving.) - Routine Neurological Exam Present: alert, oriented X3 Results - Labs CBC & Chem 7: 05/19/18 14:50 05/19/18 14:50 Microbiology 05/14/18 12:45 Blood - Peripheral Aerobic Blood Culture - Final No growth in 5 days 05/14/18 12:45 Blood - Peripheral Anaerobic Blood Culture - Final No growth in 5 days - Procedures none Assessment and Plan - Assessment (1) Abscess of thumb, left Code(s): L02.512 - Cutaneous abscess of left hand Status: Acute - Plan Acute kidney injury- resolved and renal function stable now. ATN 2/2 Vancomycin Appreciate input from nephrology She had hemodialysis x1 on May 05, 2018; Renal indices improving Continue to monitor BUN and creatinine, and avoid all nephrotoxic drug Unspecified abdominal pain-improved. Abdominal ultrasound noted Appreciate input from general surgery HIDA scan with normal gallbladder uptake However per Gen surgery , patient is currently a poor surgical candidate C. difficile PCR negative Hospital-acquired pneumonia treated with Cefepime- Cefepime was dc'ed on 05/13 for possible drug- fever Appreciate input from infectious disease specialist Left hand cellulitis/Abscess Status post I&D by hand surgery Culture positive for MRSA MRI left hand with cellulitis around the thumb with no fluid collection. Currently on Zyvox and Cipro Appreciate input from infectious disease specialist Febrile episodes with swelling/ erythema over the right forearm and left arm- due to superficial phlebitis. Repeat Blood culture from 05/14 negative so far. HIV negative Cefepime was dc'ed for possible drug-fever. continue with Zyvox- cipro was added. sonogram of the right forearm with no fluid collection or abscess venous doppler of the right upper extremity with no DVT. venous doppler of the left arm with superficial phlebitis. ID ff Ascites with abnormal liver function tests hepatitis C positive Continue with Lasix Need outpatient follow-up with Hepatology and this was d/w the patient prior to discharge. Ileus-resolved Previous history of IVDU Extensively counseled against History of iron deficiency anemia Currently on iron sulfate DVT prophylaxis with SCD Discharge Planning: dc home within the next 24 hrs if pain is better. see med list. f/u; pcp upon discharge.
[2018-05-19 12:33] VITALS: BP 101/65; PULSE 78; TEMP 98.4; O2SAT 98
[2018-05-19 14:07] VITALS: RESP 20
[2018-05-19 15:01] LABS: Baso % (Auto) 0.8 % (0.0-2.0); Eos # (Auto) 0.2 th/mm3 (0.0-0.4); Eos % (Auto) 4.1 % (0.0-4.0); Hematocrit 29.1 % (35.0-46.0); Hemoglobin 9.9 gm/dL (11.6-15.3); Lymph # (Auto) 1.7 th/mm3 (1.0-4.8); Lymph % (Auto) 27.5 % (9.0-44.0); Mean Corpuscular HGB Conc 34.1 % (32.0-36.0); Mean Corpuscular Hemoglobin 30.3 pg (27.0-34.0); Mean Corpuscular Volume 88.9 fL (80.0-100.0); Mean Platelet Volume 7.6 fL (7.0-11.0); Mono # (Auto) 0.6 th/mm3 (0.0-0.9); Mono % (Auto) 9.7 % (0.0-8.0); Neut # (Auto) 3.5 th/mm3 (1.8-7.7); Neut % (Auto) 57.9 % (16.0-70.0); Platelet Count 234 th/mm3 (150-450); Red Blood Count 3.28 mil/mm3 (4.00-5.30); Red Cell Distribution Width 13.1 % (11.6-17.2)
[2018-05-19 15:19] LABS: Potassium 4.1 meq/L (3.5-5.1)
[2018-05-19 15:21] LABS: Calcium 9.5 mg/dL (8.5-10.1)
[2018-05-19 15:22] LABS: Carbon Dioxide 23.7 meq/L (21.0-32.0)
--- NOTE | 2018-05-19 15:46 | P.DS ---
Date of admission: 04/30/18 13:47 Primary care physician: No Primary Care Physician Brief History from admission: This is a 37-year-old female with a history of rheumatoid arthritis, fibromyalgia and cocaine abuse(snorting). She presents to the emergency department because of left hand pain and swelling which started about 4 days ago after she did gardening. She thought she might have been bitten by spider. She complains of a constant throbbing discomfort worse with movement. She also noted bloody purulent discharge. She denies IV drug use. Last oral intake 11:00 this morning. All other systems reviewed negative DS: Diagnosis - Discharge Diagnosis (1) Abscess of thumb, left Status: Acute DS: Medications - Discharge Medications Prescriptions: ciprofloxacin HCl 500 mg PO Q12HR 10 Days tab doxycycline hyclate 100 mg PO BID 10 Days #20 tab ferrous sulfate [FeroSul] 325 mg PO DAILY #30 tab ibuprofen 400 mg PO Q6HR PRN #30 tab PRN Reason: Acute Pain DS: Summary Hospital Course: Acute kidney injury- resolved and renal function stable now. ATN 2/2 Vancomycin Appreciate input from nephrology She had hemodialysis x1 on May 05, 2018; Renal indices improving Unspecified abdominal pain-improved. Abdominal ultrasound noted Appreciate input from general surgery HIDA scan with normal gallbladder uptake However per Gen surgery , patient is currently a poor surgical candidate C. difficile PCR negative Hospital-acquired pneumonia treated with Cefepime- Cefepime was dc'ed on 05/13 for possible drug- fever Appreciate input from infectious disease specialist Left hand cellulitis/Abscess Status post I&D by hand surgery Culture positive for MRSA MRI left hand with cellulitis around the thumb with no fluid collection. Appreciate input from infectious disease specialist Febrile episodes with swelling/ erythema over the right forearm and left arm- due to superficial phlebitis. Repeat Blood culture from 05/14 negative so far. HIV negative Cefepime was dc'ed for possible drug-fever. sonogram of the right forearm with no fluid collection or abscess venous doppler of the right upper extremity with no DVT. venous doppler of the left arm with superficial phlebitis. continue Doxycycline and Cipro per ID recommendations. Ascites with abnormal liver function tests hepatitis C positive Continue with Lasix Need outpatient follow-up with Hepatology Ileus-resolved Previous history of IVDU Extensively counseled against History of iron deficiency anemia Currently on iron sulfate - Time Spent with Patient Total time spent providing and/or coordinating discharge services: Less than 30 minutes - Quality: VTE Deep Vein Thrombosis/Pulmonary Embolism Present on Admission: No Exam Vital signs: Vital Signs 05/18/18 16:00 05/18/18 20:00 05/19/18 00:00 Temperature 98.4 F 99.1 F 99.3 F Pulse Rate 75 80 72 Respiratory Rate 12 18 18 Blood Pressure 110/63 101/56 L 106/58 L Pulse Oximetry 98 94 L 99 05/19/18 01:34 05/19/18 05:39 05/19/18 08:00 Temperature 98.6 F Pulse Rate 73 Respiratory Rate 16 18 18 Blood Pressure 98/60 L Pulse Oximetry 97 05/19/18 12:00 05/19/18 14:06 Temperature 98.4 F Pulse Rate 78 Respiratory Rate 18 20 Blood Pressure 101/65 Pulse Oximetry 98 Intake & Output 05/18/18 05/19/18 05/19/18 18:59 06:59 18:59 Intake Total 640 / 640 Output Total 750 / 750 Balance -110 / -110 Weight 59.5 kg Intake: Oral 640 / 640 Output: Urine 750 / 750 Other: # Voids 1 Date of Last Bowel Movement 05/13/18 05/17/18 05/17/18 - Constitutional no acute distress - Routine Respiratory Exam Present: CTA bilaterally - Routine Cardiovascular Exam Present: RRR - Routine Abdominal Exam Present: soft - Routine Extremities Exam Comments: edema/pain and erythema over the left arm seems to be improving. - Routine Skin Exam Present: erythema (erythema over the left arm seems to be improving.) - Routine Neurological Exam Present: alert, oriented X3 Results Procedures completed during hospitalization: Incision and drainage of left thumb, and excisional debridement of infected skin and subcutaneous tissue. Labs on day of discharge: Labs from last 24 hours 05/19/18 05/19/18 14:50 14:50 CBC w Diff Auto diff final WBC 6.0 RBC 3.28 L Hgb 9.9 L Hct 29.1 L MCV 88.9 MCH 30.3 MCHC 34.1 RDW 13.1 Plt Count 234 MPV 7.6 Neut % (Auto) 57.9 Lymph % (Auto) 27.5 [place] % (Auto) 9.7 H Eos % (Auto) 4.1 H Baso % (Auto) 0.8 Neut # (Auto) 3.5 Lymph # (Auto) 1.7 [place] # (Auto) 0.6 Eos # (Auto) 0.2 Baso # (Auto) 0.0 WBC Differential . Differential Comment . Sodium 137 Potassium 4.1 Chloride 104 Carbon Dioxide 23.7 Anion Gap 9 BUN 20 H Creatinine 1.00 Estimated GFR 63 L Random Glucose 115 H Calcium 9.5 - Impressions ITS Impressions Hand X-Ray 04/28/18 14:51 CONCLUSION: Negative examination Abdomen/Pelvis CT 05/01/18 00:00 CONCLUSION: 1. Nonspecific, nonobstructive bowel gas pattern which may represent a mild ileus or gastroenteritis. 2. Apparent gallbladder wall thickening or pericholecystic fluid which may be due to ascites. 3. Anasarca and small amount of ascites. 4. Small bilateral pleural effusion. 5. Infiltrate in both lung bases. Abdomen Ultrasound 05/04/18 00:00 CONCLUSION: 1. No evidence of gallstones in the gallbladder. However, there is thickening of the gallbladder wall at 1 cm with a small amount of pericholecystic fluid. This can be seen with either acute or chronic acalculous cholecystitis. This needs to be correlated patient's physical and clinical exam as well as laboratory values. 2. There is some increased echogenicity of the liver parenchyma suggestive of some fatty infiltration. 3. There is a small amount of ascites in the abdomen. This is insufficient for paracentesis. 4. There is evidence of bilateral pleural effusions. 5. Mild hepatomegaly and splenomegaly. Catheter Placement 05/05/18 08:00 CONCLUSION: Uncomplicated ultrasound and fluoroscopic guided central venous dialysis catheter placement as above. Bile Acid Absorption NM 05/06/18 00:00 CONCLUSION: 1. Normal gallbladder uptake. 2. Poor ejection fraction. Chest X-Ray 05/09/18 00:00 CONCLUSION: Mild interstitial edema. Dialysis catheter in good position. Hand MRI 05/14/18 00:00 CONCLUSION: 1. Cellulitis around the proximal thumb and thenar eminence without evidence for loculated abscess or osteomyelitis. Soft Tissue Ultrasound 05/14/18 00:00 CONCLUSION: Soft tissue edema without discrete collection Venous Doppler Study 05/17/18 00:00 CONCLUSION: 1. Positive for occlusive superficial thrombosis in the basilic vein. Deep veins are patent. Discharge Plan - Discharge Disposition Patient Disposition: Discharge Home - Discharge Condition Condition: Stable - Discharge Order Discharge Orders: Discharge Order (Routine); Ordered 05/19/18 Ordered By: Odilia Jauregui - Discharge Details Discharge Comment: dc after labs resulted - Physicians Team Primary Care Provider: Primary Care Lexi Mock Attending Provider: Odilia Jauregui Other Providers: Ivonne Horvath MD ; Michell Casarez MD ; Melyssa Muhammad MD
== END 2018-05-19 18:18 | disposition home or self-care (01) ==
LOC: PHED 11:30 → PHEDA 11:30 → PH3 16:33
PROVIDERS: ADMIT Internal Medicine; ATTEND Internal Medicine